=== PATIENT | female | born 1940 | race Caucasian/White ===

== ENCOUNTER → 2017-02-06 | Outpatient (CLI) | payer MEDICARE, OTHER ==
[~2017-02-06] MED LIST: ADVAIR; ALBU0.8322 IH; ALPR.25T PO; ALUPENT; AMOX-358 PO; AMOX1TAB11 PO; BARIUM SUSPENSION 2.1% (VANILLA SILQ) 450 ML PO ONE; BIOT1TAB2 PO; BONIVA; BUDE6HFA IH; CALC-654 PO; CALC600T; CLAR-19 PO; CLCX100C PO; CLD600T; CLIN-62 PO; CODIENE PO; DAYPRO; FLUT1DIS26 IH; FRSM20T PO; HYDR-3061 PO; HYDR1TAB PO; IOHEXOL 350 MG/ML 100 ML (OMNIPAQUE 350) VIAL IV ONE; IPRA3AMP19 IH; LEVO50TA PO; LEVO50TA6 PO; LEVO750T6 PO; MELO-198 PO; MELO15TA39 PO; MNTL10T PO; MUPI15CR TP; NS 100 ML (IVPB) BAG IV ONE; POTA10CA43 PO; PRD20T PO; ROBITUSSIN; ROBITUSSIN PO; RT-COMBINH IH; TIOT18CA IH; ZLP10T PO
[2017-02-06 11:56] LABS: BLOOD UREA NITROGEN 15 MG/DL (7-18); BUN/CREATININE RATIO 19; CREATININE SERUM 0.77 MG/DL (0.60-1.30); GFR ESTIMATED > 60
--- NOTE | 2017-02-06 15:10 | Diagnostic Imaging Report ---
PROCEDURE: CT abdomen and pelvis with contrast. TECHNIQUE: Multiple contiguous axial images were obtained through the abdomen and pelvis after administration of intravenous contrast. INDICATION: Abdominal wall drainage and fistula. No previous for comparison. Correlation limited to overlapped images obtained at the time of chest CT 08/08/2010. FINDINGS: Hepatic cyst stable, simple and benign. The lung bases nonacute. There is no adrenal mass. The spleen is negative. There is no hydronephrosis. There is no bowel obstruction. There is no ascites, abscess, hematoma or other fluid collection. There is no focal inflammatory process. No defect in the anterior abdominal wall and no abdominal wall or subcutaneous inflammatory process were found to suggest a localized site of reported draining wound. The osseous structures are nonacute. The uterus, adnexa and urinary bladder had an unremarkable appearance. There is no mesenteric or retroperitoneal lymphadenopathy. IMPRESSION: No obstructive features, inflammatory process, mass, fluid collection or acute findings identified. Dictated by: Dictated on workstation # [id number]
== END ==
LOC: RAD 11:14
PROVIDERS: ATTEND Surgery
DX: K63.2 Fistula of intestine (principal)
CPT/HCPCS: 36415; 74177; 82565; 84520

== ENCOUNTER → 2017-07-31 | Outpatient (CLI) | payer MEDICARE, OTHER ==
[~2017-07-31] MED LIST changes: +ACHD5005 PO; -BARIUM SUSPENSION 2.1% (VANILLA SILQ) 450 ML PO ONE; -IOHEXOL 350 MG/ML 100 ML (OMNIPAQUE 350) VIAL IV ONE; +NFBIOT1000 PO; -NS 100 ML (IVPB) BAG IV ONE
--- NOTE | 2017-07-31 11:49 | Diagnostic Imaging Report ---
Indication: Postop and difficulty breathing. Time of exam: 11:51 AM Correlation is made with prior study from 03/19/2012. Findings: Lungs do show some hyperinflation suggestive of COPD. No infiltrates are seen. No effusion or pneumothorax is identified. Impression: COPD. No acute features detected. Dictated by: Dictated on workstation # [id number]
== END ==
LOC: RAD 11:21
PROVIDERS: ATTEND Nurse Practitioner Family
DX: J44.9 Chronic obstructive pulmonary disease, unspecified (principal)
CPT/HCPCS: 71046

== ENCOUNTER 2017-08-01 16:27 | Inpatient (IN) | payer MEDICARE, OTHER ==
[~2017-08-01] VITALS: Ht 160 cm; Wt 76.2 kg
[2017-08-01] VITALS (7 sets, daily range): BP systolic 101–135; BP diastolic 54–77
[~2017-08-01 16:27] MED LIST changes: -NFBIOT1000 PO
[2017-08-01] MEDS ORDERED: PIPERACILLIN SODIUM/TAZOBACTAM 4.5 GM in NS (IVPB) 100 ML IV ONE (16:28)
[2017-08-01] MEDS ORDERED: ONDANSETRON 4 MG/2 ML (SDV) Z0FRAN IVP PRN (16:30)
[2017-08-01] MEDS ORDERED: fentaNYL INJECTION 100 MCG/2 ML AMP IVP PRN (16:30)
[2017-08-01] MEDS ORDERED: IBUPROFEN TABLET 200 MG TAB PO PRN (16:30)
[2017-08-01] MEDS ORDERED: ALPRAZolam 0.25 MG (XANAX) TAB PO PRN (16:30)
[2017-08-01] MEDS ORDERED: HYDROcodone/APAP 5 MG/325 MG (LORTAB) TAB PO PRN (16:30)
[2017-08-01] MEDS ORDERED: RT-ALBUTEROL SULF 2.5 MG/3 ML PRE-MIX VIAL INH NR (16:30)
[2017-08-01] MEDS ORDERED: RT-IPRATROPIUM (ATROVENT) 0.5MG/2.5ML AMP IH NR (16:30)
[2017-08-01] MEDS ORDERED: ACETAMINOPHEN 500 MG TAB (TYLENOL) PO PRN (16:30)
[2017-08-01] MEDS ORDERED: PIPERACILLIN SODIUM/TAZOBACTAM 4.5 GM in NS (IVPB) 100 ML IV NR ×2 (16:30→17:30)
[2017-08-01 17:38] LABS: ABG BASE EXCESS -3.7 MMOL/L (-2.5-2.5); ABG OXYGEN SATURATION 82 % (94-100); ABG PCO2 36 MMHG (35-45); ABG PH 7.37 (7.37-7.43); ABG PO2 44 MMHG (79-93); ABG TCO2 21.6 MMOL/L (21.0-31.0)
[2017-08-01 17:39] LABS: ALLENS TEST POSITIVE; INSPIRED O2 ROOM AIR; PATIENT TEMP 99.6; VENTILATOR NO
[2017-08-01] MEDS ORDERED: CATHETER FLUSH 10 ML SYR IV PRN (17:45)
[2017-08-01 17:51] LABS: BASOPHILS % (AUTO) 0 % (0-10); EOSINOPHILS % (AUTO) 0 % (0-10); HEMATOCRIT 39 % (35-52); HEMOGLOBIN 13.5 G/DL (11.5-16.0); LYMPHOCYTES # (AUTO) 0.6 X 10^3 (1.0-4.0); LYMPHOCYTES % (AUTO) 6 % (12-44); MEAN CORPUSCULAR HEMOGLOBIN 32 PG (25-34); MEAN CORPUSCULAR HGB CONC 35 G/DL (32-36); MEAN CORPUSCULAR VOLUME 93 FL (80-99); MEAN PLATELET VOLUME 10.5 FL (7.4-10.4); MONOCYTES # (AUTO) 0.8 X 10^3 (0.0-1.0); MONOCYTES % (AUTO) 7 % (0-12); NEUTROPHILS # (AUTO) 9.4 X 10^3 (1.8-7.8); NEUTROPHILS % (AUTO) 87 % (42-75); PLATELET COUNT 227 10^3/uL (130-400); RED CELL DISTRIBUTION WIDTH 12.8 % (10.0-14.5); WHITE BLOOD COUNT 10.9 10^3/uL (4.3-11.0)
--- NOTE | 2017-08-01 17:59 | Diagnostic Imaging Report ---
INDICATION: Shortness of breath. COMPARISON: Prior examination from 07/31/2017. EXAMINATION: Single view of the chest was obtained. FINDINGS: The heart size is normal. Lungs are clear. There is no pleural effusion or pneumothorax. Mediastinum is unremarkable. IMPRESSION: No acute cardiopulmonary abnormality. Dictated by: Dictated on workstation # [id number]
[2017-08-01 18:03] LABS: BAND NEUTROPHILS 1 %; BASOPHILS % (MANUAL) 0 %; EOSINOPHILS % (MANUAL) 0 %; LYMPHOCYTES % (MANUAL) 3 %; MONOCYTES % (MANUAL) 2 %; NEUTROPHILS % (MANUAL) 94 %; RBC MORPH NORMAL
[2017-08-01 18:09] LABS: BUN/CREATININE RATIO 29; CARBON DIOXIDE 22 MMOL/L (21-32); CHLORIDE 110 MMOL/L (98-107); CREATININE SERUM 0.79 MG/DL (0.60-1.30); GFR ESTIMATED > 60; GLUCOSE 130 MG/DL (70-105); POTASSIUM 4.5 MMOL/L (3.6-5.0); SODIUM 140 MMOL/L (135-145)
[2017-08-01 18:10] LABS: ALANINE AMINOTRANSFERASE 15 U/L (0-55); ALKALINE PHOSPHATASE 109 U/L (40-136); BILIRUBIN,TOTAL 0.3 MG/DL (0.1-1.0); CALCIUM 8.7 MG/DL (8.5-10.1); TOTAL PROTEIN 6.5 GM/DL (6.4-8.2)
[2017-08-01] MEDS: NS IV 1000 ML 1,000 ML IV SCH (18:12)
[2017-08-01] MEDS: methylPREDNISolone 40 MG/ML (Solu-MEDROL) VIAL IV SCH (18:12)
[2017-08-01] MEDS: ENOXAPARIN 40 MG/0.4 ML (LOVENOX) SYR SC SCH (18:12)
--- NOTE | 2017-08-01 21:06 | Consultation-Cardiology ---
HPI-Cardiology Cardiology Consultation: Date of Consultation 08/01/17 Time Seen by Provider: 20:45 Date of Admission Attending Physician Carolee Brown DO Admitting Physician Carolee Brown DO Consulting Physician CLAUDIA HUTTON MD, MA, FACP, FACC, FSCAI, CCDS HPI: Chief Complaint: Reason for consultation: Shortness of breath HPI: 77 yo woman admitted from Dr Brown's office with increasing shortness of breath and cough productive of yellowish sputum for several days. Denies cp or palp or syncope or leg swelling or symptoms of PND Review of Systems-Cardiology Review of Systems Constitutional: malaise, No weight loss, No weight gain Eyes: No vision change Ears/Nose/Throat: No ear pain, No mouth swelling, No recent hearing loss Respiratory: As described under HPI Gastrointestinal: No constipation, No diarrhea, No nausea Genitourinary: No dysuria, No hematuria, No urine frequency changes Musculoskeletal: No back pain, No joint pain Skin: No rash, No ulcerations Psychiatric/Neurological: No seizure, No focal weakness, No syncope Hematologic: No bleeding abnormalities AUB-Mcnffs-Jkdtad Hx Patient Social History Alcohol Use: Denies Use Recreational Drug Use: No Smoking Status: Former Smoker Former smoker/When Quit: Jan 27, 2007 Type Used: Cigarettes Recent Foreign Travel: No Recent Infectious Disease Expo: No Physical Abuse Screen: No Sexual Abuse: No Immunizations Up To Date Tetanus Booster (TDap): Less than 5yrs Date of Pneumonia Vaccine: Jan 27, 2007 Date of Influenza Vaccine: Mar 01, 2017 Past Medical History PMH As described under Assessment. Family Medical History Family History: Jhonathan's disease Cardiovascular disease 19 MOTHER Myocardial infarction 19 MOTHER Stroke or transient ischemic attack in mother Allergies and Home Medications Allergies Coded Allergies: morphine (Verified Allergy, Severe, 09/30/15) DIFFICULTY BREATHING levofloxacin (Verified Allergy, Unknown, joint pain, 03/08/17) Home Medications Hydrocodone Bit/Acetaminophen 1 Each Tablet, 1-2 TAB PO 4-6HR PRN for PAIN Prescribed by: ALEIDA CHRISTIE on 03/15/17 0912 Levothyroxine Sodium 50 Mcg Tablet, 50 MCG PO DAILY, (Reported) Meloxicam 15 Mg Tablet, 15 MG PO DAILY, (Reported) Patient Home Medication List Home Medication List Reviewed: Yes Physical Exam-Cardiology Physical Exam Vital Signs/I&O Vital Sign - Last 12Hours 08/01/17 08/01/17 08/01/17 17:15 17:30 18:00 Temp 99.6 Pulse 93 76 Resp 31 13 B/P (MAP) 135/77 (96) 127/62 (83) Pulse Ox 95 99 O2 Delivery Room Air Room Air Nasal Cannula O2 Flow Rate 2.00 Capillary Refill : Constitutional: AAO x 3, well-developed, well-nourished HEENT: PERRL, EOMI Neck: carotid pulses are 2 + bilaterally, with good upstrokes Respiratory: No accessory muscle use, other (Fair air entry; increased exp phase; scattered rhonchi and coarse crackles over large airways) Cardiovascular: regular rate-rhythm, S1 and S2, systolic murmur (Faint PO at card base) Gastrointestinal: No tender, soft, No guarding, No rebound, audible bowel sounds Extremities: No swelling, No cyanosis, No significant edema Neurologic/Psychiatric: oriented x 3, other (moves all limbs equally), grossly intact Skin: No rash on exposed areas, No ulcerations on exposed areas Data Review Labs Laboratory Tests 08/01/17 17:25: Blood Gas Puncture Site RIGHT RADIAL, Blood Gas Patient Temperature 99.6, Arterial Blood pH 7.37, Arterial Blood Partial Pressure CO2 36, Arterial Blood Partial Pressure O2 44L, Arterial Blood HCO3 21L, Arterial Blood Total CO2 21.6 , Arterial Blood Oxygen Saturation 82L, Arterial Blood Base Excess -3.7L, Petar Test POSITIVE, Blood Gas Ventilator Setting NO, Blood Gas Inspired Oxygen ROOM AIR 08/01/17 17:40: White Blood Count 10.9, Red Blood Count 4.20L, Hemoglobin 13.5, Hematocrit 39, Mean Corpuscular Volume 93, Mean Corpuscular Hemoglobin 32, Mean Corpuscular Hemoglobin Concent 35, Red Cell Distribution Width 12.8, Platelet Count 227, Mean Platelet Volume 10.5H, Neutrophils (%) (Auto) 87H, Lymphocytes (%) (Auto) 6L, Monocytes (%) (Auto) 7, Eosinophils (%) (Auto) 0, Basophils (%) (Auto) 0, Neutrophils # (Auto) 9.4H, Lymphocytes # (Auto) 0.6L, Monocytes # (Auto) 0.8, Eosinophils # (Auto) 0.0, Basophils # (Auto) 0.0, Neutrophils % (Manual) 94, Lymphocytes % (Manual) 3, Monocytes % (Manual) 2, Eosinophils % (Manual) 0, Basophils % (Manual) 0, Band Neutrophils 1, Blood Morphology Comment NORMAL, Sodium Level 140, Potassium Level 4.5, Chloride Level 110H, Carbon Dioxide Level 22, Anion Gap 8, Blood Urea Nitrogen 23H, Creatinine 0.79, Estimat Glomerular Filtration Rate > 60, BUN/Creatinine Ratio 29, Glucose Level 130H, Calcium Level 8.7, Total Bilirubin 0.3, Aspartate Amino Transf (AST/SGOT) 20, Alanine Aminotransferase (ALT/SGPT) 15, Alkaline Phosphatase 109, B-Type Natriuretic Peptide 110.3H, Total Protein 6.5, Albumin 4.0 08/01/17 17:45: Lactic Acid Level 1.05 Microbiology 08/01/17 Influenza Types A,B Antigen (DAVID) - Final, Complete Laboratory Tests 08/01/17 17:40 A/P-Cardiology Assessment/Admission Diagnosis Acute bronchitis Hypothyroidism treated with thyroid replacement Discussion and Recomendations * Cardiac status appears clinically stable * Keep tele * ECG in am * I discussed her case with Dr Brown on the phone Clinical Quality Measures DVT/VTE Risk/Contraindication: Risk Factor Score Per Nursin RFS Level Per Nursing on Admit: 4+=Very High CLAUDIA HUTTON MD FACP [facility] Aug 01, 2017 21:06
[2017-08-01] MEDS: RT-ALBUTEROL/IPRATROPIUM 3 ML (DUONEB) VIAL INH SCH ×2 (21:48→21:56)
[2017-08-01] MEDS: RT-BUDESONIDE NEBS 0.5 MG/2ML (PULMICORT) AMP INH SCH ×2 (21:48→21:56)
[2017-08-02] VITALS (15 sets, daily range): BP systolic 99–128; BP diastolic 49–71
[2017-08-02] MEDS ORDERED: RT-ALBUTEROL/IPRATROPIUM 3 ML (DUONEB) VIAL INH PRN (00:30)
[2017-08-02] MEDS: methylPREDNISolone 40 MG/ML (Solu-MEDROL) VIAL IV SCH ×4 (00:35→20:58)
[2017-08-02] MEDS: PIPERACILLIN SODIUM/TAZOBACTAM 4.5 GM in NS (IVPB) 100 ML IV SCH ×3 (00:35→15:38)
[2017-08-02] MEDS: RT-ALBUTEROL/IPRATROPIUM 3 ML (DUONEB) VIAL INH SCH ×6 (02:09→22:45)
[2017-08-02] MEDS: NS IV 1000 ML 1,000 ML IV SCH (03:36)
[2017-08-02 03:37] LABS: BASOPHILS % (AUTO) 0 % (0-10); EOSINOPHILS % (AUTO) 0 % (0-10); HEMATOCRIT 37 % (35-52); HEMOGLOBIN 12.4 G/DL (11.5-16.0); LYMPHOCYTES # (AUTO) 0.4 X 10^3 (1.0-4.0); LYMPHOCYTES % (AUTO) 5 % (12-44); MEAN CORPUSCULAR HEMOGLOBIN 32 PG (25-34); MEAN CORPUSCULAR HGB CONC 34 G/DL (32-36); MEAN CORPUSCULAR VOLUME 94 FL (80-99); MEAN PLATELET VOLUME 10.6 FL (7.4-10.4); MONOCYTES # (AUTO) 0.1 X 10^3 (0.0-1.0); MONOCYTES % (AUTO) 1 % (0-12); NEUTROPHILS # (AUTO) 7.4 X 10^3 (1.8-7.8); NEUTROPHILS % (AUTO) 94 % (42-75); PLATELET COUNT 220 10^3/uL (130-400); RED BLOOD COUNT 3.91 10^6/uL (4.35-5.85); RED CELL DISTRIBUTION WIDTH 12.9 % (10.0-14.5); WHITE BLOOD COUNT 7.9 10^3/uL (4.3-11.0)
[2017-08-02 04:12] LABS: ALANINE AMINOTRANSFERASE 12 U/L (0-55); ALBUMIN 3.7 GM/DL (3.2-4.5); ALKALINE PHOSPHATASE 114 U/L (40-136); BILIRUBIN,TOTAL 0.3 MG/DL (0.1-1.0); BUN/CREATININE RATIO 36; CALCIUM 8.2 MG/DL (8.5-10.1); CARBON DIOXIDE 19 MMOL/L (21-32); CHLORIDE 115 MMOL/L (98-107); CREATININE SERUM 0.87 MG/DL (0.60-1.30); GFR ESTIMATED > 60; GLUCOSE 178 MG/DL (70-105); MAGNESIUM 2.1 MG/DL (1.8-2.4); POTASSIUM 3.9 MMOL/L (3.6-5.0); SODIUM 143 MMOL/L (135-145); TOTAL PROTEIN 5.8 GM/DL (6.4-8.2)
--- NOTE | 2017-08-02 05:41 | Pulmonary Consultation ---
History of Present Illness History of Present Illness Date of Consultation 08/02/17 05:35 Time Seen by Provider: 05:35 Date of Admission History of Present Illness 77yo presented as direct admit from Dr. Brown's office secondary to worsening SOB and productive cough of yellow sputum x 3-4 days. Denies CP, palpitations. PT was started on erythromycin and prednisone taper on Saturday however she continued to have progressive SOB, and coughing. I am consulted for pulmonary management. Allergies and Home Medications Allergies Coded Allergies: morphine (Verified Allergy, Severe, 09/30/15) DIFFICULTY BREATHING levofloxacin (Verified Allergy, Unknown, joint pain, 03/08/17) Home Medications Hydrocodone Bit/Acetaminophen 1 Each Tablet, 1-2 TAB PO 4-6HR PRN for PAIN Prescribed by: ALEIDA CHRISTIE on 03/15/17 0912 Levothyroxine Sodium 50 Mcg Tablet, 50 MCG PO DAILY, (Reported) Meloxicam 15 Mg Tablet, 15 MG PO DAILY, (Reported) Past Tvnwlrd-Wltnby-Sdkits Hx Patient Social History Alcohol Use: Denies Use Recreational Drug Use: No Smoking Status: Former Smoker Type Used: Cigarettes Former Smoker, Quit: Mar 08, 2006 Recent Foreign Travel: No Contact w/Someone Who Travel: No Recent Infectious Disease Expo: No Recent Hopitalizations: No Immunizations Up To Date Tetanus Booster (TDap): Less than 5yrs PED Vaccines UTD: Yes Date of Pneumonia Vaccine: Jan 27, 2007 Date of Influenza Vaccine: Mar 01, 2017 Seasonal Allergies Seasonal Allergies: No Surgeries History of Surgeries: Yes Surgeries: Appendectomy, Orthopedic Respiratory History of Respiratory Disorde: Yes Respiratory Disorders: Asthma, Pneumonia, COPD Currently Using CPAP: No Currently Using BIPAP: No Cardiovascular History of Cardiac Disorders: No Neurological History of Neurological Disord: No Reproductive System Hx Reproductive Disorders: No Genitourinary History of Genitourinary Disor: No Gastrointestinal History of Gastrointestinal Di: No Gastrointestinal Disorders: Diverticulosis Musculoskeletal History of Musculoskeletal Dis: No Musculoskeletal Disorders: Osteoporosis Endocrine History of Endocrine Disorders: Yes Endocrine Disorders: Hypothyroidsim HEENT History of HEENT Disorders: No Loss of Vision: Denies Hearing Impairment: Denies Cancer History of Cancer: No Psychosocial History of Psychiatric Problem: No Integumentary History of Skin or Integumenta: No Blood Transfusions History of Blood Disorders: No Adverse Reaction to a Blood Tr: Yes Family Medical History Significant Family History: Hypertension Family Medial History: Jhonathan's disease Cardiovascular disease 19 MOTHER Myocardial infarction 19 MOTHER Stroke or transient ischemic attack in mother Review of Systems Time Seen by Provider: 05:49 Constitutional: Chills, Weakness, Malaise, No: Fever, Sweats, Other Eyes: No: Pain, Vision change, Conjunctivae inflammation, Eyelid inflammation, Other, Redness ENT: Nose congestion Respiratory: Cough, Shortness of breath, Wheezing, Sputum Cardiovascular: Paroxysmal Noc. Dyspnea, No: Chest Pain, Palpitations, Orthopnea, Edema, Lt Headedness, Other Gastrointestinal: No: Nausea, Vomiting, Abdominal Pain, Diarrhea, Constipation , Melena, Hematochezia, Other Exam Exam Vital Signs Date Time Temp Pulse Resp B/P (MAP) Pulse Ox O2 Delivery O2 Flow Rate FiO2 08/02/17 05:00 57 14 102/55 (71) 98 Nasal Cannula 2.00 08/02/17 04:00 97.0 08/02/17 04:00 96 Nasal Cannula 2.00 08/02/17 04:00 80 23 117/66 (83) 96 Nasal Cannula 2.00 08/02/17 03:00 77 14 105/49 (67) 97 Nasal Cannula 2.00 08/02/17 02:09 96 Room Air 08/02/17 02:00 73 10 110/59 (76) 94 Nasal Cannula 2.00 08/02/17 01:00 70 14 101/51 (68) 97 Nasal Cannula 2.00 08/02/17 01:00 70 08/02/17 00:37 97.1 08/02/17 00:00 96 Nasal Cannula 2.00 08/02/17 00:00 71 16 99/56 (70) 96 Nasal Cannula 2.00 08/01/17 23:00 76 15 101/54 (70) 96 Nasal Cannula 2.00 08/01/17 22:03 Nasal Cannula 2.00 08/01/17 22:00 64 36 121/62 (81) 100 Nasal Cannula 2.00 08/01/17 21:56 100 Nasal Cannula 2.00 08/01/17 21:56 58 100 08/01/17 21:00 63 132/67 (88) 97 Nasal Cannula 2.00 08/01/17 20:00 74 17 126/60 (82) 97 Nasal Cannula 2.00 08/01/17 20:00 96 Nasal Cannula 2.00 08/01/17 20:00 99.0 08/01/17 19:00 70 21 118/74 (89) 98 Nasal Cannula 2.00 08/01/17 19:00 70 08/01/17 18:00 76 13 127/62 (83) 99 Nasal Cannula 2.00 08/01/17 17:30 Room Air 08/01/17 17:15 99.6 93 31 135/77 (96) 95 Room Air I & O 08/02/17 07:00 Intake Total 1400 ml Output Total 200 ml Balance 1200 ml General Appearance: Anxious, Mild Distress HEENT: PERRL/EOMI, Normal ENT Inspection, Pharynx Normal Neck: Full Range of Motion, Normal Inspection, Non Tender, Supple Respiratory: Accessory Muscle Use, Decreased Breath Sounds, Rhonci Cardiovascular: No Edema, No Gallop, No JVD, No Murmur, Bradycardia Gastrointestinal: normal bowel sounds, non tender, soft, no organomegaly Extremity: Normal Capillary Refill, Normal Inspection, Non Tender Neurologic/Psychiatric: Alert, Oriented x3 Skin: Normal Color, Warm/Dry Lymphatic: No Adenopathy Results Lab Laboratory Tests 08/01/17 17:40 08/02/17 03:01 Assessment/Plan Assessment/Plan AsthmaAE r/o pneumonia -SVNS Q 4, pulmicort BID -Solumedrol decrease to 40 IV Q 6 --Continue Zosyn -Await jenkins cultures. will transfer to 4th floor with tele. TAVO OLMOS DO Aug 02, 2017 05:40
[2017-08-02] MEDS ORDERED: NS IV 1000 ML 1,000 ML IV SCH (05:44)
[2017-08-02] MEDS ORDERED: POTASSIUM CL 10MEQ/50ML IVPB 50 ML IV SCH (06:00)
[2017-08-02] MEDS ORDERED: MAGNESIUM 1 GM/100 ML IVPB 100 ML IV SCH (06:00)
[2017-08-02] MEDS: KCL 20 MEQ TAB (K-DUR) PO SCH (06:01)
[2017-08-02] MEDS: RT-BUDESONIDE NEBS 0.5 MG/2ML (PULMICORT) AMP INH SCH ×2 (07:01→19:22)
--- NOTE | 2017-08-02 07:57 | Diagnostic Imaging Report ---
INDICATION: Respiratory insufficiency. TECHNIQUE: Single frontal view of the chest. COMPARISON: 08/01/2017 FINDINGS: Lung volumes are normal. Minimally increased opacities in the right lung base likely represent atelectasis. The cardiomediastinal silhouette is normal in size and contour. No pleural effusion or pneumothorax is seen. No acute osseous abnormality is seen, although there are advanced degenerative changes in the shoulders bilaterally. IMPRESSION: 1. Minimally increased opacities in the right lung base, likely atelectasis. Dictated by: Dictated on workstation # [id number]
[2017-08-02] MEDS: LORATADINE (CLARITIN) 10 MG TAB PO SCH (08:05)
[2017-08-02] MEDS ORDERED: NFBIOT1000 PO ×2 (09:20)
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
--- NOTE | 2017-08-02 13:33 | Progress Note-Cardiology ---
Cardiology SOAP Progress Note Subjective: Cough and shortness of breath improving but not resolved No cp or palp or syncope or leg swelling Objective: I&O/Vital Signs Vital Sign - Last 12Hours 08/02/17 08/02/17 08/02/17 08/02/17 02:00 02:09 03:00 04:00 Pulse 73 77 80 Resp 10 14 23 B/P (MAP) 110/59 (76) 105/49 (67) 117/66 (83) Pulse Ox 94 96 97 96 O2 Delivery Nasal Cannula Room Air Nasal Cannula Nasal Cannula O2 Flow Rate 2.00 2.00 2.00 08/02/17 08/02/17 08/02/17 08/02/17 04:00 04:00 05:00 06:00 Temp 97.0 Pulse 57 56 Resp 14 36 B/P (MAP) 102/55 (71) 120/71 (87) Pulse Ox 96 98 98 O2 Delivery Nasal Cannula Nasal Cannula Nasal Cannula O2 Flow Rate 2.00 2.00 2.00 08/02/17 08/02/17 08/02/17 08/02/17 07:00 07:00 07:02 07:08 Pulse 65 62 Resp 19 B/P (MAP) 111/61 (78) Pulse Ox 92 99 100 O2 Delivery Nasal Cannula Nasal Cannula Nasal Cannula O2 Flow Rate 2.00 1.00 1.00 08/02/17 08/02/17 08/02/17 08/02/17 08:06 08:13 09:00 10:03 Temp 97.8 Pulse 75 58 Resp 22 19 B/P (MAP) 125/67 (86) 114/60 (78) Pulse Ox 98 97 97 98 O2 Delivery Room Air Room Air Nasal Cannula Room Air O2 Flow Rate 2.00 08/02/17 08/02/17 08/02/17 10:23 10:35 10:40 Temp 98.9 Pulse 74 82 Resp 18 16 B/P (MAP) 128/64 (85) 112/56 (74) Pulse Ox 96 97 95 O2 Delivery Room Air Room Air Intake and Output 08/02/17 00:00 Intake Total 300 ml Output Total 200 ml Balance 100 ml Weight (Pounds): 163 Weight (Ounces): 2.0 Weight (Calculated Kilograms): 73.460748 Constitutional: AAO x 3, well-developed, well-nourished Respiratory: No accessory muscle use, other (Fair air entry; increased exp phase; scattered rhonchi and coarse crackles over large airways) Cardiovascular: regular rate-rhythm, S1 and S2, systolic murmur (Faint PO at card base) Gastrointestional: No tender, soft, No guarding, No rebound, audible bowel sounds Extremities: No swelling, No cyanosis, No significant edema Neurologic/Psychiatric: oriented x 3, other (moves all limbs equally), grossly intact Skin: No rash on exposed areas, No ulcerations on exposed areas Results/Procedures: Labs Laboratory Tests 08/01/17 17:25: Blood Gas Puncture Site RIGHT RADIAL, Blood Gas Patient Temperature 99.6, Arterial Blood pH 7.37, Arterial Blood Partial Pressure CO2 36, Arterial Blood Partial Pressure O2 44L, Arterial Blood HCO3 21L, Arterial Blood Total CO2 21.6 , Arterial Blood Oxygen Saturation 82L, Arterial Blood Base Excess -3.7L, Petar Test POSITIVE, Blood Gas Ventilator Setting NO, Blood Gas Inspired Oxygen ROOM AIR 08/01/17 17:40: White Blood Count 10.9, Red Blood Count 4.20L, Hemoglobin 13.5, Hematocrit 39, Mean Corpuscular Volume 93, Mean Corpuscular Hemoglobin 32, Mean Corpuscular Hemoglobin Concent 35, Red Cell Distribution Width 12.8, Platelet Count 227, Mean Platelet Volume 10.5H, Neutrophils (%) (Auto) 87H, Lymphocytes (%) (Auto) 6L, Monocytes (%) (Auto) 7, Eosinophils (%) (Auto) 0, Basophils (%) (Auto) 0, Neutrophils # (Auto) 9.4H, Lymphocytes # (Auto) 0.6L, Monocytes # (Auto) 0.8, Eosinophils # (Auto) 0.0, Basophils # (Auto) 0.0, Neutrophils % (Manual) 94, Lymphocytes % (Manual) 3, Monocytes % (Manual) 2, Eosinophils % (Manual) 0, Basophils % (Manual) 0, Band Neutrophils 1, Blood Morphology Comment NORMAL, Sodium Level 140, Potassium Level 4.5, Chloride Level 110H, Carbon Dioxide Level 22, Anion Gap 8, Blood Urea Nitrogen 23H, Creatinine 0.79, Estimat Glomerular Filtration Rate > 60, BUN/Creatinine Ratio 29, Glucose Level 130H, Calcium Level 8.7, Total Bilirubin 0.3, Aspartate Amino Transf (AST/SGOT) 20, Alanine Aminotransferase (ALT/SGPT) 15, Alkaline Phosphatase 109, B-Type Natriuretic Peptide 110.3H, Total Protein 6.5, Albumin 4.0 08/01/17 17:45: Lactic Acid Level 1.05 08/02/17 03:01: White Blood Count 7.9, Red Blood Count 3.91L, Hemoglobin 12.4, Hematocrit 37, Mean Corpuscular Volume 94, Mean Corpuscular Hemoglobin 32, Mean Corpuscular Hemoglobin Concent 34, Red Cell Distribution Width 12.9, Platelet Count 220, Mean Platelet Volume 10.6H, Neutrophils (%) (Auto) 94H, Lymphocytes (%) (Auto) 5L, Monocytes (%) (Auto) 1, Eosinophils (%) (Auto) 0, Basophils (%) (Auto) 0, Neutrophils # (Auto) 7.4, Lymphocytes # (Auto) 0.4L, Monocytes # (Auto) 0.1, Eosinophils # (Auto) 0.0, Basophils # (Auto) 0.0, Sodium Level 143, Potassium Level 3.9, Chloride Level 115H, Carbon Dioxide Level 19L, Anion Gap 9, Blood Urea Nitrogen 31H, Creatinine 0.87, Estimat Glomerular Filtration Rate > 60, BUN /Creatinine Ratio 36, Glucose Level 178H, Calcium Level 8.2L, Total Bilirubin 0.3, Aspartate Amino Transf (AST/SGOT) 16, Alanine Aminotransferase (ALT/SGPT) 12, Alkaline Phosphatase 114, Total Protein 5.8L, Albumin 3.7, Magnesium Level 2.1 Microbiology 08/01/17 Influenza Types A,B Antigen (DAVID) - Final, Complete A/P: Assessment: Acute bronchitis Hypothyroidism treated with thyroid replacement ECG: subtle ST/T abn (nonspecific) and some prolongation of QTc Plan: * Cardiac status appears clinically stable * ECG w/o evidence of ischemia or infarction * Repeat ECG in CLAUDIA Haines MD [facility] Aug 02, 2017 13:33
[2017-08-02] MEDS: ENOXAPARIN 40 MG/0.4 ML (LOVENOX) SYR SC SCH (15:38)
[2017-08-02] MEDS: MONTELUKAST 10 MG (SINGULAIR) TAB PO SCH (20:52)
[2017-08-03] VITALS: BP 120/59
[2017-08-03] MEDS: PIPERACILLIN SODIUM/TAZOBACTAM 4.5 GM in NS (IVPB) 100 ML IV SCH ×3 (00:39→16:03)
[2017-08-03] MEDS: methylPREDNISolone 40 MG/ML (Solu-MEDROL) VIAL IV SCH ×4 (02:02→17:03)
[2017-08-03] MEDS: RT-ALBUTEROL/IPRATROPIUM 3 ML (DUONEB) VIAL INH SCH ×6 (03:17→22:08)
[2017-08-03 04:00] VITALS: BP 101/49
[2017-08-03 04:30] VITALS: BP 110/56
[2017-08-03] MEDS: KCL 20 MEQ TAB (K-DUR) PO SCH (06:13)
[2017-08-03] MEDS: LEVOTHYROXINE 50 MCG (LEVOTHROID) TAB PO SCH (06:27)
[2017-08-03] MEDS: RT-BUDESONIDE NEBS 0.5 MG/2ML (PULMICORT) AMP INH SCH ×2 (06:36→19:07)
[2017-08-03 07:02] LABS: BASOPHILS % (AUTO) 0 % (0-10); EOSINOPHILS % (AUTO) 0 % (0-10); HEMATOCRIT 35 % (35-52); HEMOGLOBIN 11.6 G/DL (11.5-16.0); LYMPHOCYTES # (AUTO) 0.7 X 10^3 (1.0-4.0); LYMPHOCYTES % (AUTO) 7 % (12-44); MEAN CORPUSCULAR HEMOGLOBIN 32 PG (25-34); MEAN CORPUSCULAR HGB CONC 33 G/DL (32-36); MEAN CORPUSCULAR VOLUME 95 FL (80-99); MEAN PLATELET VOLUME 10.5 FL (7.4-10.4); MONOCYTES # (AUTO) 0.4 X 10^3 (0.0-1.0); MONOCYTES % (AUTO) 4 % (0-12); NEUTROPHILS # (AUTO) 9.3 X 10^3 (1.8-7.8); NEUTROPHILS % (AUTO) 90 % (42-75); PLATELET COUNT 222 10^3/uL (130-400); RED BLOOD COUNT 3.66 10^6/uL (4.35-5.85); RED CELL DISTRIBUTION WIDTH 13.4 % (10.0-14.5); WHITE BLOOD COUNT 10.3 10^3/uL (4.3-11.0)
[2017-08-03 07:22] LABS: BUN/CREATININE RATIO 34; CALCIUM 8.1 MG/DL (8.5-10.1); CARBON DIOXIDE 21 MMOL/L (21-32); CHLORIDE 116 MMOL/L (98-107); CREATININE SERUM 0.76 MG/DL (0.60-1.30); GFR ESTIMATED > 60; GLUCOSE 143 MG/DL (70-105); MAGNESIUM 2.2 MG/DL (1.8-2.4); PHOSPHORUS 3.2 MG/DL (2.3-4.7); SODIUM 141 MMOL/L (135-145)
[2017-08-03] MEDS: LORATADINE (CLARITIN) 10 MG TAB PO SCH (08:11)
[2017-08-03] MEDS: MELOXICAM 7.5 MG (MOBIC) TABLET PO SCH (08:11)
[2017-08-03 08:30] VITALS: BP 117/56
[2017-08-03] MEDS ORDERED: NON-FORMULARY MEDICATION 1 EA EA (Biotin 1,000 MCG) PO SCH (09:00)
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
--- NOTE | 2017-08-03 13:58 | Progress Note-Cardiology ---
Cardiology SOAP Progress Note Subjective: Cough and shortness of breath have improved, but have not resolved No cp or palp or syncope or leg swelling Objective: I&O/Vital Signs Vital Sign - Last 12Hours 08/03/17 08/03/17 08/03/17 08/03/17 03:17 04:00 04:00 04:30 Temp 97.9 Pulse 69 Resp 18 B/P (MAP) 101/49 (66) 110/56 (74) Pulse Ox 92 93 O2 Delivery Room Air Room Air Room Air 08/03/17 08/03/17 08/03/17 08/03/17 06:37 06:42 07:00 08:00 Pulse 70 Pulse Ox 94 98 O2 Delivery Room Air Room Air Room Air 08/03/17 08/03/17 08:30 10:26 Temp 97.0 Pulse 72 Resp 20 B/P (MAP) 117/56 (76) Pulse Ox 96 92 O2 Delivery Room Air Room Air Intake and Output 08/03/17 00:00 Intake Total 920 ml Output Total 200 ml Balance 720 ml Weight (Pounds): 164 Weight (Ounces): 5.0 Weight (Calculated Kilograms): 74.090532 Constitutional: AAO x 3, well-developed, well-nourished Respiratory: No accessory muscle use, other (Fair air entry; increased exp phase; scattered rhonchi and coarse crackles over large airways) Cardiovascular: regular rate-rhythm, S1 and S2, systolic murmur (Faint PO at card base) Gastrointestional: No tender, soft, No guarding, No rebound, audible bowel sounds Extremities: No swelling, No cyanosis, No significant edema Neurologic/Psychiatric: oriented x 3, other (moves all limbs equally), grossly intact Skin: No rash on exposed areas, No ulcerations on exposed areas Results/Procedures: Labs Laboratory Tests 08/03/17 06:39: White Blood Count 10.3, Red Blood Count 3.66L, Hemoglobin 11.6, Hematocrit 35, Mean Corpuscular Volume 95, Mean Corpuscular Hemoglobin 32, Mean Corpuscular Hemoglobin Concent 33, Red Cell Distribution Width 13.4, Platelet Count 222, Mean Platelet Volume 10.5H, Neutrophils (%) (Auto) 90H, Lymphocytes (%) (Auto) 7L, Monocytes (%) (Auto) 4, Eosinophils (%) (Auto) 0, Basophils (%) (Auto) 0, Neutrophils # (Auto) 9.3H, Lymphocytes # (Auto) 0.7L, Monocytes # (Auto) 0.4, Eosinophils # (Auto) 0.0, Basophils # (Auto) 0.0, Sodium Level 141, Potassium Level 4.0, Chloride Level 116H, Carbon Dioxide Level 21, Anion Gap 4L, Blood Urea Nitrogen 26H, Creatinine 0.76, Estimat Glomerular Filtration Rate > 60, BUN /Creatinine Ratio 34, Glucose Level 143H, Calcium Level 8.1L, Phosphorus Level 3.2, Magnesium Level 2.2 Microbiology 08/01/17 Blood Culture - Preliminary, Resulted No growth 08/01/17 Influenza Types A,B Antigen (DAVID) - Final, Complete Laboratory Tests 08/01/17 17:40 08/02/17 03:01 08/03/17 06:39 A/P: Assessment: Acute bronchitis Hypothyroidism treated with thyroid replacement ECG: NSR and subtle ST/T abn (nonspecific), slow R wave progression, and some prolongation of QTc on 08/02/17; unchanged on 07/06/17 except that QTc is normal Plan: * Cardiac status appears clinically stable * I had a discussion with her * We will sign off. Please recall, if needed CLAUDIA HUTTON MD FACP [facility] Aug 03, 2017 13:58
[2017-08-03 15:26] VITALS: BP 131/60
[2017-08-03] MEDS: ENOXAPARIN 40 MG/0.4 ML (LOVENOX) SYR SC SCH (16:03)
[2017-08-03] MEDS: MONTELUKAST 10 MG (SINGULAIR) TAB PO SCH (21:03)
[2017-08-03 23:44] VITALS: BP 127/59
[2017-08-04] MEDS: methylPREDNISolone 40 MG/ML (Solu-MEDROL) VIAL IV SCH ×4 (00:56→17:15)
[2017-08-04] MEDS: PIPERACILLIN SODIUM/TAZOBACTAM 4.5 GM in NS (IVPB) 100 ML IV SCH ×3 (00:56→15:49)
[2017-08-04] MEDS: RT-ALBUTEROL/IPRATROPIUM 3 ML (DUONEB) VIAL INH SCH ×6 (02:35→22:21)
[2017-08-04 06:14] LABS: BASOPHILS % (AUTO) 0 % (0-10); EOSINOPHILS % (AUTO) 0 % (0-10); HEMATOCRIT 35 % (35-52); HEMOGLOBIN 11.6 G/DL (11.5-16.0); LYMPHOCYTES # (AUTO) 0.6 X 10^3 (1.0-4.0); LYMPHOCYTES % (AUTO) 6 % (12-44); MEAN CORPUSCULAR HEMOGLOBIN 32 PG (25-34); MEAN CORPUSCULAR HGB CONC 33 G/DL (32-36); MEAN CORPUSCULAR VOLUME 95 FL (80-99); MEAN PLATELET VOLUME 10.4 FL (7.4-10.4); MONOCYTES # (AUTO) 0.4 X 10^3 (0.0-1.0); MONOCYTES % (AUTO) 5 % (0-12); NEUTROPHILS # (AUTO) 8.2 X 10^3 (1.8-7.8); NEUTROPHILS % (AUTO) 89 % (42-75); PLATELET COUNT 225 10^3/uL (130-400); RED BLOOD COUNT 3.66 10^6/uL (4.35-5.85); RED CELL DISTRIBUTION WIDTH 13.2 % (10.0-14.5); WHITE BLOOD COUNT 9.2 10^3/uL (4.3-11.0)
[2017-08-04] MEDS: LEVOTHYROXINE 50 MCG (LEVOTHROID) TAB PO SCH (06:40)
[2017-08-04] MEDS: KCL 20 MEQ TAB (K-DUR) PO SCH (06:41)
[2017-08-04 06:49] LABS: BUN/CREATININE RATIO 42; CALCIUM 8.1 MG/DL (8.5-10.1); CARBON DIOXIDE 19 MMOL/L (21-32); CHLORIDE 114 MMOL/L (98-107); CREATININE SERUM 0.74 MG/DL (0.60-1.30); GFR ESTIMATED > 60; GLUCOSE 140 MG/DL (70-105); MAGNESIUM 2.2 MG/DL (1.8-2.4); PHOSPHORUS 2.9 MG/DL (2.3-4.7); POTASSIUM 3.9 MMOL/L (3.6-5.0); SODIUM 142 MMOL/L (135-145)
[2017-08-04] MEDS: RT-BUDESONIDE NEBS 0.5 MG/2ML (PULMICORT) AMP INH SCH ×2 (06:56→22:22)
[2017-08-04 07:40] VITALS: BP 137/63
[2017-08-04] MEDS: LORATADINE (CLARITIN) 10 MG TAB PO SCH (08:43)
[2017-08-04] MEDS: MELOXICAM 7.5 MG (MOBIC) TABLET PO SCH (08:43)
[2017-08-04 10:39] VITALS: BP 137/63
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
[2017-08-04 12:13] VITALS: BP 135/64
[2017-08-04] MEDS: ENOXAPARIN 40 MG/0.4 ML (LOVENOX) SYR SC SCH (15:50)
[2017-08-04 16:30] VITALS: BP 116/57
[2017-08-04] MEDS: MONTELUKAST 10 MG (SINGULAIR) TAB PO SCH (20:57)
[2017-08-05 00:17] VITALS: BP 135/64
[2017-08-05] MEDS: methylPREDNISolone 40 MG/ML (Solu-MEDROL) VIAL IV SCH ×2 (00:30→06:25)
[2017-08-05] MEDS: PIPERACILLIN SODIUM/TAZOBACTAM 4.5 GM in NS (IVPB) 100 ML IV SCH ×2 (00:30→10:55)
[2017-08-05] MEDS: RT-ALBUTEROL/IPRATROPIUM 3 ML (DUONEB) VIAL INH SCH ×3 (02:38→11:50)
[2017-08-05 03:35] LABS: BASOPHILS % (AUTO) 0 % (0-10); EOSINOPHILS % (AUTO) 0 % (0-10); HEMATOCRIT 35 % (35-52); HEMOGLOBIN 11.9 G/DL (11.5-16.0); LYMPHOCYTES # (AUTO) 0.7 X 10^3 (1.0-4.0); LYMPHOCYTES % (AUTO) 9 % (12-44); MEAN CORPUSCULAR HEMOGLOBIN 32 PG (25-34); MEAN CORPUSCULAR HGB CONC 34 G/DL (32-36); MEAN CORPUSCULAR VOLUME 94 FL (80-99); MEAN PLATELET VOLUME 10.4 FL (7.4-10.4); MONOCYTES # (AUTO) 0.4 X 10^3 (0.0-1.0); MONOCYTES % (AUTO) 5 % (0-12); NEUTROPHILS # (AUTO) 6.4 X 10^3 (1.8-7.8); NEUTROPHILS % (AUTO) 86 % (42-75); PLATELET COUNT 251 10^3/uL (130-400); RED BLOOD COUNT 3.76 10^6/uL (4.35-5.85); RED CELL DISTRIBUTION WIDTH 13.2 % (10.0-14.5); WHITE BLOOD COUNT 7.5 10^3/uL (4.3-11.0)
[2017-08-05 03:54] LABS: BUN/CREATININE RATIO 44; CALCIUM 8.2 MG/DL (8.5-10.1); CARBON DIOXIDE 21 MMOL/L (21-32); CHLORIDE 114 MMOL/L (98-107); CREATININE SERUM 0.73 MG/DL (0.60-1.30); GFR ESTIMATED > 60; GLUCOSE 136 MG/DL (70-105); MAGNESIUM 2.3 MG/DL (1.8-2.4); PHOSPHORUS 3.2 MG/DL (2.3-4.7); SODIUM 142 MMOL/L (135-145)
[2017-08-05] MEDS: LEVOTHYROXINE 50 MCG (LEVOTHROID) TAB PO SCH (06:25)
[2017-08-05] MEDS: KCL 20 MEQ TAB (K-DUR) PO SCH (06:25)
[2017-08-05] MEDS: RT-BUDESONIDE NEBS 0.5 MG/2ML (PULMICORT) AMP INH SCH (06:48)
--- NOTE | 2017-08-05 07:12 | Pulmonary Progress Note ---
Subjective Time Seen by Provider: 07:41 Subjective/Events-last exam PT wants to go home. Exam Exam Vital Signs Date Time Temp Pulse Resp B/P (MAP) Pulse Ox O2 Delivery O2 Flow Rate FiO2 08/05/17 06:51 98 08/05/17 06:46 93 Room Air 08/05/17 02:38 93 Room Air 08/05/17 00:17 99.1 75 20 135/64 (87) 98 Room Air 08/04/17 22:22 93 Room Air 08/04/17 22:21 93 Room Air 08/04/17 20:00 Room Air 08/04/17 16:30 98.6 70 18 116/57 (76) 94 Room Air 08/04/17 13:57 95 Room Air 08/04/17 12:13 99.1 75 20 135/64 (87) 98 Room Air 08/04/17 10:39 75 98 21 08/04/17 10:35 98 Room Air 08/04/17 08:14 Room Air 08/04/17 07:40 99.1 75 18 137/63 (87) 97 Room Air I & O 08/05/17 07:00 Intake Total 610 ml Output Total 750 ml Balance -140 ml General Appearance: No Apparent Distress, WD/WN HEENT: PERRL/EOMI, Normal ENT Inspection, Pharynx Normal Neck: Full Range of Motion, Normal Inspection, Non Tender, Supple, Carotid Bruit Respiratory: Chest Non Tender, Accessory Muscle Use, Decreased Breath Sounds, Wheezing Cardiovascular: Regular Rate, Rhythm, No Edema, No Gallop, No JVD, No Murmur, Normal Peripheral Pulses Gastrointestinal: normal bowel sounds, non tender, soft, no organomegaly Extremity: Normal Capillary Refill, Normal Inspection, Normal Range of Motion, Non Tender, No Calf Tenderness, No Pedal Edema Neurologic/Psychiatric: Alert, Oriented x3, No Motor/Sensory Deficits, Normal Mood/Affect Skin: Normal Color, Warm/Dry Lymphatic: No Adenopathy Results Lab Laboratory Tests 08/04/17 05:30 08/05/17 03:00 Assessment/Plan Assessment/Plan AsthmaAE r/o pneumonia -SVNS Q 4, pulmicort BID -Solumedrol change to prednisone taper --Zosyn PT has 4 cats at home. He states her cough and breathing is worse however she wants to go home because of her cats. 232 GRACIE,TAVO M DO Aug 05, 2017 07:12
[2017-08-05 08:30] VITALS: BP 129/63
[2017-08-05] MEDS ORDERED: predniSONE 10 MG TAB PO SCH (09:00)
[2017-08-05] MEDS ORDERED: BUDE0.5A INH ×4 (10:12→10:35)
[2017-08-05] MEDS ORDERED: MONT10TA24 PO ×2 (10:12)
[2017-08-05] MEDS ORDERED: RT-ALBUINH IH ×2 (10:12)
[2017-08-05] MEDS ORDERED: LORA10TA7 PO ×2 (10:12)
[2017-08-05] MEDS ORDERED: PRD10T PO ×2 (10:12)
[2017-08-05] MEDS ORDERED: AMOX500T2 PO ×2 (10:12)
[2017-08-05] MEDS ORDERED: BENZONATATE 100 MG (TESSALON) CAPSULE PO PRN (10:15)
[2017-08-05] MEDS: LORATADINE (CLARITIN) 10 MG TAB PO SCH (10:54)
[2017-08-05] MEDS: MELOXICAM 7.5 MG (MOBIC) TABLET PO SCH (10:55)
[2017-08-05 13:20] VITALS: BP 129/63
--- NOTE | 2017-08-05 15:17 | Discharge Summary-Hospitalist ---
Diagnosis/Chief Complaint Date of Admission Aug 01, 2017 at 5:15 pm Date of Discharge Aug 05, 2017 at 1:20 pm Admission Diagnosis Assessment: Acute respiratory insufficiency due to acute exacerbation of COPD failed Zithromax and albuterol treatment at [facility] the day before Discharge Diagnosis (1) Respiratory distress Status: Resolved (2) Hypoxemia Status: Resolved (3) COPD with acute exacerbation Status: Acute (4) Hypothyroidism Status: Chronic (5) Osteoarthritis Status: Chronic Discharge Summary Procedures/Consulations Dr Hendrix Discharge Physical Exam Allergies: Coded Allergies: morphine (Verified Allergy, Severe, 09/30/15) DIFFICULTY BREATHING levofloxacin (Verified Allergy, Unknown, joint pain, 03/08/17) Vitals & I&Os Vital Signs Date Time Temp Pulse Resp B/P (MAP) Pulse Ox O2 Delivery O2 Flow Rate FiO2 08/05/17 13:20 63 20 129/63 94 Room Air 08/05/17 08:30 97.7 08/04/17 10:39 21 08/02/17 09:00 2.00 General Appearance: Alert, Oriented X3 Psych/Mental Status: Mental Status NL Hospital Course Pt is a 77yoCF with a history fo asthma/COPD who was admitted for acute exacerbation. She was started on steroids and treated empirically for PNA. She improved throughout her stay and was transitioned to oral medications in prep for discharge. She was seen in consultation by Dr Hendrix, Pulm/CC and will follow up with him as outpatient. She was requesting discharge on day of discharge in order to return home to her cats. She was sent home in stable condition. She is to follow up with her PCP on 08/08 as well. Labs (last 24 hrs) Microbiology 08/01/17 Blood Culture - Preliminary, Resulted No growth 08/01/17 Influenza Types A,B Antigen (DAVID) - Final, Complete Patient resulted labs reviewed. Imaging: Reviewed Imaging Report Discussion & Recommendations Discharge Planning: >30 minutes discharge planning Discharge Home Medications: Active Scripts Active Budesonide 0.5 Mg/2 Ml Ampul.neb 0.5 Mg INH RTBID Amoxicillin 500 Mg Tablet 500 Mg PO BID Proair Hfa (Albuterol Sulfate) 1 Puff Puff 2 Puff IH Q4H 1 PUFF = 90 MCG Prednisone 10 Mg Tab 60 Mg PO DAILY Montelukast Sodium 10 Mg Tablet 10 Mg PO HS Loratadine 10 Mg Tablet 10 Mg PO DAILY Reported Biotin 1,000 Mcg Tablet 1,000 Mcg PO DAILY Meloxicam 15 Mg Tablet 15 Mg PO DAILY Levothyroxine Sodium 50 Mcg Tablet 50 Mcg PO DAILY Instructions to patient/family Please see electronic discharge instructions given to patient. Clinical Quality Measures DVT/VTE Risk/Contraindication: Risk Factor Score Per Nursin RFS Level Per Nursing on Admit: 4+=Very High Copy Copies To 1: ARMIDA DE SOUZA DO Problem Qualifiers (1) Hypothyroidism: Hypothyroidism type: acquired Qualified Codes: E03.9 - Hypothyroidism, unspecified (2) Osteoarthritis: Osteoarthritis location: unspecified site Osteoarthritis type: unspecified Qualified Codes: M19.90 - Unspecified osteoarthritis, unspecified site FE RIVER MD Aug 05, 2017 15:17
--- NOTE | 2017-08-07 10:07 | Physician Query Clarification ---
PQ-Conflicting Diagnosis Admission/Discharge Admission Date: Aug 01, 2017 at 17:15 Discharge Date: Aug 05, 2017 at 13:20 The medical record reflects the following clinical scenario: History/Risk Factors: COPD, ASTHMA Clinical Findings: RESPIRATORY DISTRESS/FAILURE Treatment: IV STEROIDS Question: 08/03 PROGRESS NOTE states under assessment Acute Respiratory Failure due to AECOPD, same progress note states dx is respiratory distress. Please document a response below. Please clarify if patient had Acute Respiratory Failure due to AECOPD or if patient had respiratory distress only. PHYSICIAN RESPONSE Do you agree w/Consulting Dx?: Yes In responding to this query, please exercise your independent professional judgment. The purpose of this communication is to more accurately reflect the complexity of your patients condition. The fact that a question is asked does not imply that any particular answer is desired or expected. Thank you for your timely response to this clarification. Requestors name: [ ] Phone # [ ] THIS PHYSICIAN QUERY FORM IS A PERMANENT PART OF THE MEDICAL RECORD LUIS FELIPE YAÑEZ Aug 07, 2017 10:07 ARMIDA DE SOUZA DO Aug 08, 2017 12:35
--- NOTE | 2017-08-09 09:26 | Physician Query-General Query ---
Physician Query-General Query to Physician: Please clarify which of the following is the correct diagnosis: 1. Acute respiratory failure due to AECOPD 2. Respiratory distress PHYSICIAN RESPONSE: Based on the clinical findings in the record, please respond to the query above on this document as an addendum. Possible, probable, or questionable diagnosis can be coded for INPATIENTS ONLY. Physician Response: Physician Response 1. Acute respiratory distress due to AECOPD If you have questions please contact: Engine Boss: Ext: Thank you for your time and cooperation. Clinical Weatherization Installer/Engine Boss This is a permanent part of the medical record LUIS FELIPE YAÑEZ Aug 09, 2017 09:26 ARMIDA DE SOUZA DO Aug 09, 2017 09:32
== END 2017-08-05 13:20 | disposition home or self-care (01) | DRG 191 ==
LOC: ICU 17:15 → 4TH 08-02 10:32
PROVIDERS: ADMIT Internal Medicine; ATTEND Internal Medicine
DX: J44.1 Chronic obstructive pulmonary disease with (acute) exacerbation (principal); J45.901 Unspecified asthma with (acute) exacerbation; J44.0 Chronic obstructive pulmonary disease with (acute) lower respiratory infection; R06.03 Acute respiratory distress; J20.9 Acute bronchitis, unspecified; E03.9 Hypothyroidism, unspecified; I45.81 Long QT syndrome; M19.92 Post-traumatic osteoarthritis, unspecified site; Z66 Do not resuscitate; K57.90 Diverticulosis of intestine, part unspecified, without perforation or abscess without bleeding; Z87.891 Personal history of nicotine dependence
CPT/HCPCS: 36415; 71045; 76937; 80048; 80053; 82805; 83605; 83735; 83880; 84100; 85007; 85025; 85027; 87040; 87070; 87081; 87205; 87804; 93005; 94640; 94664; 94760; 94761

== ENCOUNTER 2017-08-10 20:33 | Emergency (ER) | payer MEDICARE, OTHER ==
[~2017-08-10] VITALS: Ht 160 cm; Wt 70.8 kg
[~2017-08-10 20:33] MED LIST changes: +AMOX500T2 PO; +BUDE0.5A INH; +LORA10TA7 PO; +MONT10TA24 PO; +NFBIOT1000 PO; +PRD10T PO; +RT-ALBUINH IH
--- OUTSIDE RECORDS SUMMARY | 2017-08-10 20:39 | XMS REPORT | Clinical Summary ---
Author Author User, MISBAH Organization [facility] Physician Meyers Chuck Address Unknown Phone Unavailable Allergies, Adverse Reactions, Alerts Allergy Name Reaction Description Start Date Severity Status Provider STRIDOR Critical Active Carolee Murrayner MORPHINE Critical Active Carolee Brown Conditions or Problems Problem Name Problem Code Onset Date Status Entry Date Provider Comment Standard Description Annotate WHEEZING 786.07 Resolved Carolee Brown Wheezing BRONCHITIS 490 Resolved Carolee Brown Bronchitis, not specified as acute or chronic OSTEOARTHRITIS 715.90 Active Carolee Brown Osteoarthrosis, unspecified whether generalized or localized, involving unspecified site OSTEOPOROSIS, GENERALIZED 733.00 Active Carolee Brown Osteoporosis, unspecified COUGH 786.2 Resolved Carolee Brown Cough HEALTH SCREENING V70.0 Resolved Carolee Brown Routine general medical examination at a health care facility WEIGHT GAIN, ABNORMAL 783.1 Resolved Carolee Brown Abnormal weight gain BONE PAIN 733.90 Resolved Carolee Brown Disorder of bone and cartilage, unspecified COUGH 786.2 Resolved Carolee Brown Cough ASTHMA, CHRN OBST W/(ACUTE) EXACERBATION 493.22 Resolved Carolee Brown Chronic obstructive asthma, with (acute) exacerbation BRONCHITIS 490 Resolved Carolee Brown Bronchitis, not specified as acute or chronic VACCINE AGAINST STREPTOCOCCUS PNEUMONIAE V03.82 Resolved Carolee Brown Need for prophylactic vaccination against Streptococcus pneumoniae [pneumococcus] EDEMA LEG 782.3 Resolved Carolee Brown Edema CELLULITIS 682.9 Resolved Carolee Brown Cellulitis and abscess of unspecified sites ALOPECIA NOS 704.00 Resolved Carolee Brown Alopecia, unspecified OSTEOPOROSIS NEC 733.09 Active Carolee Brown Other osteoporosis PNEUMONIA 486 Resolved Carolee Brown Pneumonia, organism unspecified ACUTE RESPIRATORY FAILURE 518.81 Resolved Carolee Brown Acute respiratory failure SEBORRHEIC KERATOSIS 702.19 Resolved Carolee Brown Other seborrheic keratosis HYPOTHYROIDISM, PRIMARY 244.9 Active Carolee Brown Unspecified hypothyroidism LEG PAIN, RIGHT 729.5 Resolved Carolee Brown Pain in limb SHOULDER PAIN 719.41 Resolved Carolee Brown Pain in joint involving shoulder region LEG PAIN, RIGHT 729.5 Resolved Carolee Brown Pain in limb CELLULITIS AND ABSCESS OF LEG EXCEPT FOOT 682.6 Resolved Carolee Brown Cellulitis and abscess of leg, except foot URTICARIA, ACUTE 708.9 Active Carolee Brown Unspecified urticaria Medication List Medication Instructions Start Date Stop Date Generic Name NDC Status Provider Patient Instruction TRIAMCINOLONE ACETONIDE 0.1 % CREA apply BID TRIAMCINOLONE ACETONIDE (TOP) 44584720675 Active Carolee Brown ZOSTAVAX 36154 UNT/0.65ML SOLR 1 injection once to prevent Shingles ZOSTER VACCINE LIVE 97944131707 No Longer Active Caroleebatsheva Brown ATARAX 25 MG TAB 1 PO QHS HYDROXYZINE HCL No Longer Active Carolee Luz Marina Brown PROAIR HFA 108 (90 BASE) MCG/ACT AERS 2 puff Q4 hrs prn wheezing ALBUTEROL SULFATE 46006989453 No Longer Active Caroleebatsheva Brown SYNTHROID 0.05 MG TAB 1 PO daily on empty stomach LEVOTHYROXINE SODIUM 81441744392 Active Akilah Ambrocio CLOBETASOL PROPIONATE 0.05 % CREA Apply to affected areas BID CLOBETASOL PROPIONATE 87469643919 No Longer Active Carolee Brown PREDNISONE 20 MG TAB 2 pills at once for 2 days then 1 pill daily for 5 days PREDNISONE 27248476981 No Longer Active Carolee Brown HYDROCODONE-ACETAMINOPHEN 10-325 MG TABS 1 PO Q4hrs prn pain 2011 HYDROCODONE-ACETAMINOPHEN 43772994334 No Longer Active Caroleebatsheva Brown CLEOCIN 300 MG CAPS 1 PO Q8hrs for 10 days CLINDAMYCIN HCL 67948868030 No Longer Active Caroleebatsheva Brown BACTRIM DS 800-160 MG TAB 1 PO BID TRIMETHOPRIM- SULFAMETHOXAZOLE 23011223912 No Longer Active Carolee Brown MOBIC 15 MG TABS 1 PO DAILY MELOXICAM 57353542823 Active Akilah Ambrocio DAYPRO 600 MG TABS 1 PO TID OXAPROZIN 05263510652 No Longer Active Carolee Brown MOBIC 15 MG TABS 1 po daily MELOXICAM 09057011636 No Longer Active Akilah Ambrocio DAYPRO 600 MG TAB 2 po daily OXAPROZIN 85689849498 No Longer Active Caroleebatsheva Brown CELEBREX 200 MG CAPS 1 po BID CELECOXIB 37512331464 No Longer Active Carolee Luz Marina Brown BACTRIM DS 800-160 MG TAB 1 PO BID TRIMETHOPRIM- SULFAMETHOXAZOLE 39733592807 No Longer Active Carolee Luz Marina Stephanie BACTRIM DS 800-160 MG TAB 1 PO BID TRIMETHOPRIM- SULFAMETHOXAZOLE 76481107868 No Longer Active Carolee Luz Marina Brown K-DUR 10 MEQ TAB CR 1 PO daily with Lasix PRN POTASSIUM CHLORIDE No Longer Active Carolee Luz Marina Brown LASIX 20 MG TAB 1 PO QD PRN FUROSEMIDE 50942462783 No Longer Active Carolee Luz Marina Brown FOSAMAX 70 MG TABS 1 PO Qwk ALENDRONATE SODIUM 12881860616 No Longer Active Carolee Luz Marina Brown BACTRIM DS 800-160 MG TAB 1 PO BID TRIMETHOPRIM- SULFAMETHOXAZOLE 63630094361 No Longer Active Carolee Luz Marina Brown SYNTHROID 0.025 MG TAB 1 PO daily on empty stomach LEVOTHYROXINE SODIUM 51811578983 No Longer Active Carolee Luz Marina Brown DICLOFENAC SODIUM 50 MG TBEC I PO TID DICLOFENAC SODIUM 24260496034 No Longer Active Carolee Luz Marina Brown XOPENEX CONCENTRATE 1.25 MG/0.5ML NEBU 1 Neb treatment QID prn LEVALBUTEROL HCL 08012623042 No Longer Active Carolee Luz Marina Brown SYMBICORT 160-4.5 MCG/ACT AERO 2 puffs BID BUDESONIDE -FORMOTEROL FUMARATE 45090743646 No Longer Active Carolee Luz Marina Brown SPIRIVA HANDIHALER 18 MCG CAPS 1 puff daily TIOTROPIUM BROMIDE MONOHYDRATE 48222825698 No Longer Active Carolee Luz Marina Brown SINGULAIR 10 MG TABS 1 PO QHS MONTELUKAST SODIUM 95648257326 No Longer Active Carolee Luz Marina Brown DICLOFENAC SODIUM 50 MG TBEC 1 PO TID DICLOFENAC SODIUM 61463049020 No Longer Active Carolee Luz Marina Brown DUONEB 0.5-2.5 (3) MG/3ML SOLN 1 tx QID PRN IPRATROPIUM- ALBUTEROL 42789575261 No Longer Active Carolee Luz Marina Brown ROBITUSSIN A-C 10-100 MG/5ML SYRUP 1 teaspoon PO Q 4-6 hr prn ROBITUSSIN A-C 10-100 MG/5ML SYRUP No Longer Active Carolee Luz Marina Brown BIAXIN 500 MG TAB 1 PO BID CLARITHROMYCIN 66132675856 No Longer Active Carolee Luz Marina Brown PREDNISONE 20 MG TABS 3 po for 3 days, then 2 po for 2 days, then 1 po for 3 days. PREDNISONE 34882009917 No Longer Active Carolee Luz Marina Brown CIPRO 250 MG TABS 1 PO BID CIPROFLOXACIN HCL 50991205838 No Longer Active Carolee Luz Marina Brown VOLTAREN-XR RT86V-JMC 1 PO daily DICLOFENAC SODIUM [id number] 72189650776 No Longer Active Carolee Luz Marina Brown LASIX 20 MG TAB 1 PO QD FUROSEMIDE 90277173221 No Longer Active Carolee Luz Marina Brown ADVAIR DISKUS 100-50 MCG/DOSE MISC 1 puff twice daily. Rinse mouth after use. FLUTICASONE-SALMETEROL 43773543371 No Longer Active Carolee Luz Marina Brown CLEOCIN 150 MG CAPS 1 PO daily after Bactrim completed until further notice. CLINDAMYCIN HCL 67373367745 No Longer Active Carolee Luz Marina Brown DAYPRO 600 MG TABS 2 PO daily OXAPROZIN 14460413429 No Longer Active Carolee Luz Marina Brown BACTRIM DS 800-160 MG TAB 1 PO BID TRIMETHOPRIM- SULFAMETHOXAZOLE 69580527159 No Longer Active Carolee Luz Marina Brown BACTRIM DS 800-160 MG TAB 1 PO BID TRIMETHOPRIM- SULFAMETHOXAZOLE 27112945444 No Longer Active Carolee Luz Marina Brown PREDNISONE 20 MG TAB 2 pills daily at once for 4 days, 1 once daily for 3 days PREDNISONE 63959170854 No Longer Active Carolee Luz Marina Brown LEVAQUIN 750 MG TABS 1 PO daily LEVOFLOXACIN 71534189129 No Longer Active Carolee Luz Marina Brown PREDNISONE 20 MG TAB 2 pills at once for 2 days then 1 pill daily for 2 days PREDNISONE 36362498208 No Longer Active Carolee Luz Marina Brown ROBITUSSIN A-C 10-100 MG/5ML SYRUP 1 teaspoon PO Q 4-6 hr prn ROBITUSSIN A-C 10-100 MG/5ML SYRUP 50844267165 No Longer Active Carolee Luz Marina Brown BIAXIN XL PAC 500 MG TB24 2 pills at same time daily for 7 days CLARITHROMYCIN 46999598597 No Longer Active Carolee Luz Marina Brown DAYPRO 600 MG TABS 2 PO QAM OXAPROZIN 60592454896 No Longer Active Carolee Luz Marina Brown ALBUTEROL 90 MCG/ACT AERS 2 puffs Q4-6hrs prn ALBUTEROL 07940254354 No Longer Active Carolee Luz Marina Brown ADVAIR DISKUS 250-50 MCG/DOSE MISC 1 Puff BID FLUTICASONE-SALMETEROL 02427755329 No Longer Active Carolee Luz Marina Brown BONIVA 150 MG TABS 1 PO Q month IBANDRONATE SODIUM 59151196870 No Longer Active Carolee Luz Marina Brown CELEBREX 200 MG CAPS 1 po BID CELECOXIB 68172807397 No Longer Active Carolee Luz Marina Brown BACTRIM DS 800-160 MG TAB 1 PO BID TRIMETHOPRIM- SULFAMETHOXAZOLE 05311139068 No Longer Active Carolee Luz Marina Brown K-DUR 10 MEQ TAB CR 1 PO BID with Lasix POTASSIUM CHLORIDE 08904156523 No Longer Active Carolee Luz Marina Brown LASIX 20 MG TAB 1 PO BID for swelling FUROSEMIDE 05333220544 No Longer Active Caroleebatsheva Brown LOVENOX 40 MG/0.4ML SOLN 1 injection prior to flight to prevent blood clot ENOXAPARIN SODIUM 99758847816 No Longer Active Caroleebatsheva Brown PREDNISONE 20 MG TAB 3 PO daily for 3 days, 2 PO daily for 3 days, 1 PO daily for 2 days PREDNISONE 95787726045 No Longer Active Caroleebatsheva Brown LEVAQUIN 500 MG TAB 1 PO QD for 7 Days LEVOFLOXACIN 06007304516 No Longer Active Carolee Brown ACTONEL WITH CALCIUM 35-1250 MG TABS 1 PO weekly RISEDRONATE-CALCIUM CARBONATE 64631204031 No Longer Active Caroleebatsheva Brown BONIVA 150 MG TABS 1 PO Q month as directed IBANDRONATE SODIUM 62712484089 No Longer Active Carolee Luz Marina Brown ZITHROMAX Z-JOE 250 MG TABS as directed AZITHROMYCIN 17266443039 No Longer Active Megan Siegrist MEDROL (JOE) 4 MG TABS as directed METHYLPREDNISOLONE 40695690651 No Longer Active Megan Siegrist ZITHROMAX Z-JOE 250 MG TABS as directed AZITHROMYCIN 00869943203 No Longer Active Caroleebatsheva Brown ALBUTEROL 90 MCG/ACT AERS 2 puffs Q4-6hrs prn ALBUTEROL 46766344812 No Longer Active Carolee Luz Marina Brown ALUPENT 0.65 MG/ACT AERP as needed METAPROTERENOL SULFATE 36150208563 No Longer Active Carolee Luz Marina Stephanie MEDROL (JOE) 4 MG TABS use as directed METHYLPREDNISOLONE 70021824866 No Longer Active Carolee Luz Marina Brown MULTIVITAMINS TABS 1 po daily MULTIPLE VITAMIN 57382015235 No Longer Active Carolee Luz Marina Stephanie CALTRATE 600 PLUS-VIT D 600-200 MG-IU TABS 1 PO TID CALCIUM-VITAMIN D 61530730196 Active Carolee Luz Marina Murrayner ADVIL 200 MG CAPS prn IBUPROFEN 37461633216 No Longer Active Carolee Luz Marina Murrayner ZITHROMAX Z-JOE 250 MG TABS use as directed AZITHROMYCIN 45932028732 No Longer Active Carolee Luz Marina Brown CALCIUM 500 MG TABS 1 po tID CALCIUM 45143316571 No Longer Active Carolee Luz Marina Murrayner BEXTRA 20 MG TABS one po daily VALDECOXIB 97298816773 No Longer Active Carolee Luz Marina Stephanie Immunizations Vaccine Administration Date Value Standard Description Influenza vaccine given Done influenza virus vaccine, unspecified formulation Vital Signs Date Name Value Unit Range Description blood pressure, diastolic - 8462-4 74 mm[Hg] BP holland blood pressure, systolic - 8480-6 130 mm[Hg] BP sys pulse rate E&M - 8867-4 76 /min Heart rate respiratory rate E&M - 9279-1 14 /min Resp rate blood pressure, diastolic - 8462-4 64 mm[Hg] BP holland blood pressure, systolic - 8480-6 124 mm[Hg] BP sys pulse rate E&M - 8867-4 78 /min Heart rate respiratory rate E&M - 9279-1 14 /min Resp rate Diagnostic Results Date Name Value Unit Range Description Clinical Lists Update: CBC,CMP,FLP,TSH,Free T4 - Chemistry Estimated Glomerular Filtration Rate (calc) 88 mL/min/1.73m2 LDL cholesterol, serum 98 mg/dL glucose, plasma fasting 85 mg/dL alkaline phosphatase, serum 97 U/L cholesterol/HDL ratio, serum, percent 2.9 urea nitrogen, blood 20 mg/dL anion gap, serum 7 calcium, serum 9.1 mg/dL sodium, serum 143 mmol/L chloride, serum 112 mmol/L triglyceride, serum, fasting 58 mg/dL cholesterol, serum 169 mg/dL bilirubin, serum, total 0.3 mg/dL carbon dioxide, venous blood 28.0 mmol/L alanine aminotransferase (SGPT), serum 10 U/L creatinine, serum 0.7 mg/dL aspartate aminotransferase (SGOT), serum 14 U/L thyroxine, serum, free 0.94 ng/dL protein, total, serum 5.7 g/dL HDL cholesterol, serum 59.0 mg/dL potassium, serum 4.2 mmol/L thyroid stimulating hormone, serum 5.62 u[iU]/mL albumin, serum 3.9 g/dL Clinical Lists Update: CBC,CMP,FLP,TSH,Free T4 - Hematology hemoglobin, blood 12.7 g/dL hematocrit, blood 40 % platelet count 231 10*3/mm3 erythrocyte (RBC) count 4.04 10*6/mm3 leukocyte count, blood 5.8 10*3/mm3 mean corpuscular volume, RBC 99 fL red blood cell distribution width 13.9 % Clinical Lists Update: CMP,FLP,TSH,FREE T4 - Chemistry alanine aminotransferase (SGPT), serum 9 U/L LDL cholesterol, serum 94 mg/dL bilirubin, serum, total 0.6 mg/dL carbon dioxide, venous blood 27.0 mmol/L triglyceride, serum, fasting 56 mg/dL cholesterol, serum 173 mg/dL sodium, serum 142 mmol/L chloride, serum 109 mmol/L anion gap, serum 10 calcium, serum 9.1 mg/dL cholesterol/HDL ratio, serum, percent 2.5 urea nitrogen, blood 18 mg/dL glucose, plasma fasting 82 mg/dL alkaline phosphatase, serum 81 U/L Estimated Glomerular Filtration Rate (calc) 67 mL/min/1.73m2 albumin, serum 4.1 g/dL thyroxine, serum, free 0.94 ng/dL aspartate aminotransferase (SGOT), serum 15 U/L HDL cholesterol, serum 68.0 mg/dL protein, total, serum 5.8 g/dL thyroid stimulating hormone, serum 2.08 u[iU]/mL potassium, serum 3.9 mmol/L creatinine, serum 0.9 mg/dL Encounters Code Encounter Date Provider Facility CPT-06862 Ofc Vst, Est Level III 13:18:57 CDT Carolee Brown DO, FACP CPT-84221 Ofc Vst, Est Level III 19:51:40 [employer] [employer] Carolee Brown DO, FACP CPT-54647 Ofc Vst, Est Level III 16:53:45 [employer] Carolee Brown DO, FACP CPT-49970 Ofc Vst, Est Level III 13:12:19 [employer] Carolee Strongi S Brown, DO, FACP CPT-17076 Ofc Vst, Est Level III 14:42:44 CDT Carolee Luz Marina Wheeler Brown, DO, FACP CPT-23783 Ofc Vst, Est Level III 14:09:17 CDT Caroleebatsheva Wheeler Brown, DO, FACP CPT-90768 Ofc Vst, Est Level III 11:30:16 [employer] Caroleebatsheva Wheeler Brown, DO, FACP CPT-12544 Ofc Vst, Est Level III 11:32:30 [employer] Carolee Wheeler Brown, DO, FACP CPT-05252 Ofc Vst, Est Level IV 10:59:40 CDT Caroleebatsheva Wheeler Stephanie, DO, FACP CPT-79908 Ofc Vst, Est Level III 16:44:16 CDT Caroleebatsheva Wheeler Stephanie, DO, FACP CPT-76386 Ofc Vst, Est Level IV 11:31:54 CDT Caroleebatsheva Wheeler Stephanie, DO, FACP CPT-46020 Ofc Vst, Est Level III 14:42:52 CDT Caroleebatsheva Brown [facility] CPT-22277 Ofc Vst, Est Level IV 10:38:00 CDT Caroleebatsheva Wheeler Stephanie, DO, FACP CPT-12717 Ofc Vst, Est Level IV 11:51:26 CDT Caroleebatsheva Wheeler Stephanie, DO, FACP CPT-07152 Ofc Vst, Est Level V 11:15:19 CDT Carolee Luz Marina Wheeler Stephanie, DO, FACP CPT-99208 Ofc Vst, Est Level IV 11:14:51 CDT Carolee Luz Marina Wheeler Stephanie, DO, FACP CPT-28636 Ofc Vst, Est Level IV 10:51:44 CDT Caroleebatsheva Wheeler Brown, DO, FACP CPT-15363 Ofc Vst, Est Level IV 10:18:20 CDT Carolee Luz Marina Wheeler Brown, DO, FACP CPT-12836 Ofc Vst, Est Level IV 11:25:16 CDT Caroleebatsheva Wheeler Brown, DO, FACP CPT-01096 Ofc Vst, Est Level V 10:51:26 CDT Caorlee Luz Marina Wheeler Brown, DO, FACP CPT-80151 Ofc Vst, Est Level IV 15:18:28 [employer] Carolee Wheeler Brown, DO, FACP CPT-81820 Ofc Vst, Est Level IV 09:55:03 [employer] Caroleebatsheva Wheeler Stephanie, DO, FACP CPT-69835 Ofc Vst, Est Level IV 11:29:27 CDT Caroleebatsheva Wheeler Brown, DO, FACP CPT-22977 Ofc Vst, Est Level IV 11:56:00 CDT Carolee Wheeler Brown, DO, FACP CPT-49014 Ofc Vst, Est Level IV 15:25:37 CDT Caroleebatsheva Wheeler Brown, DO, FACP CPT-13431 Ofc Vst, Est Level III 16:06:39 CDT Caroleebatsheva Wheeler Brown, DO, FACP CPT-47226 Ofc Vst, Est Level IV 10:01:16 CDT Carolee Wheeler Brown, DO, FACP CPT-41972 Ofc Vst, Est Level IV 10:26:26 [employer] Carolee Wheeler Stephanie, DO, FACP CPT-35992 Ofc Vst, Est Level IV 14:59:16 CDT Carolee Luz Marinarashi Strongi Summer Brown, DO, FACP CPT-29708 Ofc Vst, Est Level III 10:51:23 CDT Carolee Luz Marina Stephanie Strongi S Brown, DO, FACP CPT-58339 Ofc Vst, Est Level II 11:14:55 CDT Carolee Luz Marina Stephanie Strongi Summer Brown, DO, FACP CPT-90823 Ofc Vst, Est Level III 10:01:34 CDT Carolee Luz Marina Stephanie Strongi S Stephanie, DO, FACP CPT-78935 Ofc Vst, Est Level IV 14:38:36 CDT Caroleebatsheva [facility] Chuck CPT-05058 Ofc Vst, Est Level IV 15:38:00 CDT Carolee Luz Marina Brown [facility] Meyers Chuck CPT-91661 Ofc Vst, Est Level V 10:50:54 CDT Carolee Luz Marina Brown [facility] Meyers Chuck CPT-16141 Ofc Vst, Est Level III 10:15:13 CDT Carolee Luz Marina Brown [facility] Meyers Chuck CPT-23331 Ofc Vst, Est Level IV 09:36:45 CDT Carolee Luz Marina Brown [facility] Meyers Chuck CPT-76522 Ofc Vst, Est Level IV 13:07:23 CDT Carolee Luz Marina Brown [facility] Meyers Chuck CPT-00245 Ofc Vst, Est Level IV 14:36:05 CDT Carolee Luz Marina Brown [facility] Meyers Chuck CPT-12093 Ofc Vst, Est Level III 14:53:52 CDT Caroleebatsheva Brown [facility] Meyers Chuck CPT-62580 Ofc Vst, New Level III 17:13:16 [employer] Carolee Brown [facility] Meyers Chuck Procedures Code Procedure Name Date Entry Date Standard Description CPT-G0439 Medicare Annual Wellness Visit 20:41:18 CDT CPT-G8443 E-Prescribing Medication Sent 19:51:40 [employer] CPT-G8445 E-Prescribing Not sent due to no medication given 15:39: 28 CDT CPT-G0439 Medicare Annual Wellness Visit 15:39:28 CDT CPT-G8445 E-Prescribing Not sent due to no medication given 16:53: 45 [employer] CPT-G8445 E-Prescribing Not sent due to no medication given 13:12: 19 [employer] CPT-G8443 E-Prescribing Medication Sent 14:42:44 CDT CPT-G0438 Medicare Annual Wellness Visit Initial 11:23:44 CDT CPT-30470 Injection 10:15:13 CDT
--- OUTSIDE RECORDS SUMMARY | 2017-08-10 20:40 | XMS REPORT | Clinical Summary ---
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 [...] % CREA apply BID TRIAMCINOLONE ACETONIDE (TOP) 86153312487 Active Carolee Brown ZOSTAVAX 02493 UNT/0.65ML SOLR 1 injection once to prevent Shingles ZOSTER VACCINE LIVE 95777469359 No Longer Active Caroleebatsheva Brown ATARAX 25 MG TAB 1 PO QHS HYDROXYZINE HCL No Longer Active Caroleebatsheva Brown PROAIR HFA 108 (90 BASE) MCG/ACT AERS 2 puff Q4 hrs prn wheezing ALBUTEROL SULFATE 62614219200 No Longer Active Caroleebatsheva Brown SYNTHROID 0.05 MG TAB 1 PO daily on empty stomach LEVOTHYROXINE SODIUM 23625510184 Active Akilah Ambrocio CLOBETASOL PROPIONATE 0.05 % CREA Apply to affected areas BID CLOBETASOL PROPIONATE 73257149884 No Longer Active Carolee Brown PREDNISONE 20 MG TAB 2 pills at once for 2 days then 1 pill daily for 5 days PREDNISONE 82493646643 No Longer Active Carolee Brown HYDROCODONE-ACETAMINOPHEN 10-325 MG TABS 1 PO Q4hrs prn pain 2011 HYDROCODONE-ACETAMINOPHEN 30740839585 No Longer Active Caroleebatsheva Brown CLEOCIN 300 MG CAPS 1 PO Q8hrs for 10 days CLINDAMYCIN HCL 82281092323 No Longer Active Caroleebatsheva Brown BACTRIM DS 800-160 MG TAB 1 PO BID TRIMETHOPRIM- SULFAMETHOXAZOLE 22836178989 No Longer Active Carolee Brown MOBIC 15 MG TABS 1 PO DAILY MELOXICAM 28281948585 Active Akilah Ambrocio DAYPRO 600 MG TABS 1 PO TID OXAPROZIN 29596848141 No Longer Active Carolee Brown MOBIC 15 MG TABS 1 po daily MELOXICAM 57870669793 No Longer Active Akilah Ambrocio DAYPRO 600 MG TAB 2 po daily OXAPROZIN 43442288497 No Longer Active Caroleebatsheva Brown CELEBREX 200 MG CAPS 1 po BID CELECOXIB 95112705312 No Longer Active Carolee Luz Marina Brown BACTRIM DS 800-160 MG TAB 1 PO BID TRIMETHOPRIM- SULFAMETHOXAZOLE 87926568821 No Longer Active Carolee Luz Marina Brown BACTRIM DS 800-160 MG TAB 1 PO BID TRIMETHOPRIM- SULFAMETHOXAZOLE 79361200653 No Longer Active Carolee Luz Marina Brown K-DUR 10 MEQ TAB CR 1 PO daily with Lasix PRN POTASSIUM CHLORIDE No Longer Active Carolee Luz Marina Brown LASIX 20 MG TAB 1 PO QD PRN FUROSEMIDE 71836001525 No Longer Active Carolee Luz Marina Brown FOSAMAX 70 MG TABS 1 PO Qwk ALENDRONATE SODIUM 36870606370 No Longer Active Carolee Luz Marina Brown BACTRIM DS 800-160 MG TAB 1 PO BID TRIMETHOPRIM- SULFAMETHOXAZOLE 07503170676 No Longer Active Carolee Luz Marina Brown SYNTHROID 0.025 MG TAB 1 PO daily on empty stomach LEVOTHYROXINE SODIUM 36006892943 No Longer Active Carolee Luz Marina Brown DICLOFENAC SODIUM 50 MG TBEC I PO TID DICLOFENAC SODIUM 46664871636 No Longer Active Carolee Luz Marina Brown XOPENEX CONCENTRATE 1.25 MG/0.5ML NEBU 1 Neb treatment QID prn LEVALBUTEROL HCL 03490010731 No Longer Active Carolee Luz Marina Brown SYMBICORT 160-4.5 MCG/ACT AERO 2 puffs BID BUDESONIDE -FORMOTEROL FUMARATE 30789733922 No Longer Active Carolee Luz Marina Brown SPIRIVA HANDIHALER 18 MCG CAPS 1 puff daily TIOTROPIUM BROMIDE MONOHYDRATE 92209813584 No Longer Active Carolee Luz Marina Brown SINGULAIR 10 MG TABS 1 PO QHS MONTELUKAST SODIUM 22201622207 No Longer Active Carolee Luz Marina Brown DICLOFENAC SODIUM 50 MG TBEC 1 PO TID DICLOFENAC SODIUM 47779198829 No Longer Active Carolee Luz Marina Brown DUONEB 0.5-2.5 (3) MG/3ML SOLN 1 tx QID PRN IPRATROPIUM- ALBUTEROL 43664564180 No Longer Active Carolee Luz Marina Brown ROBITUSSIN A-C 10-100 MG/5ML SYRUP 1 teaspoon PO Q 4-6 hr prn ROBITUSSIN A-C 10-100 MG/5ML SYRUP No Longer Active Carolee Luz Marina Brown BIAXIN 500 MG TAB 1 PO BID CLARITHROMYCIN 29084378688 No Longer Active Carolee Luz Marina Brown PREDNISONE 20 MG TABS 3 po for 3 days, then 2 po for 2 days, then 1 po for 3 days. PREDNISONE 74799790707 No Longer Active Carolee Luz Marina Brown CIPRO 250 MG TABS 1 PO BID CIPROFLOXACIN HCL 22540174360 No Longer Active Carolee Luz Marina Brown VOLTAREN-XR AZ46Q-QNK 1 PO daily DICLOFENAC SODIUM [id number]-LKC 97211853241 No Longer Active Carolee Luz Marina Brown LASIX 20 MG TAB 1 PO QD FUROSEMIDE 86649198533 No Longer Active Carolee Luz Marina Brown ADVAIR DISKUS 100-50 MCG/DOSE MISC 1 puff twice daily. Rinse mouth after use. FLUTICASONE-SALMETEROL 25536708197 No Longer Active Carolee Luz Marina Brown CLEOCIN 150 MG CAPS 1 PO daily after Bactrim completed until further notice. CLINDAMYCIN HCL 06232936661 No Longer Active Carolee Luz Marina Brown DAYPRO 600 MG TABS 2 PO daily OXAPROZIN 23334169833 No Longer Active Carolee Luz Marina Brown BACTRIM DS 800-160 MG TAB 1 PO BID TRIMETHOPRIM- SULFAMETHOXAZOLE 22171903021 No Longer Active Carolee Luz Marina Bronw BACTRIM DS 800-160 MG TAB 1 PO BID TRIMETHOPRIM- SULFAMETHOXAZOLE 58306909839 No Longer Active Carolee Luz Marina Brown PREDNISONE 20 MG TAB 2 pills daily at once for 4 days, 1 once daily for 3 days PREDNISONE 58750607347 No Longer Active Carolee Luz Marina Brown LEVAQUIN 750 MG TABS 1 PO daily LEVOFLOXACIN 47330360913 No Longer Active Carolee Luz Marina Brown PREDNISONE 20 MG TAB 2 pills at once for 2 days then 1 pill daily for 2 days PREDNISONE 43827926399 No Longer Active Carolee Luz Marina Brown ROBITUSSIN A-C 10-100 MG/5ML SYRUP 1 teaspoon PO Q 4-6 hr prn ROBITUSSIN A-C 10-100 MG/5ML SYRUP 61367589794 No Longer Active Carolee Luz Marina Brown BIAXIN XL PAC 500 MG TB24 2 pills at same time daily for 7 days CLARITHROMYCIN 87678520211 No Longer Active Carolee Luz Marina Brown DAYPRO 600 MG TABS 2 PO QAM OXAPROZIN 03945100122 No Longer Active Carolee Luz Marina Brown ALBUTEROL 90 MCG/ACT AERS 2 puffs Q4-6hrs prn ALBUTEROL 32433136465 No Longer Active Carolee Luz Marina Brown ADVAIR DISKUS 250-50 MCG/DOSE MISC 1 Puff BID FLUTICASONE-SALMETEROL 32384876796 No Longer Active Carolee Luz Marina Brown BONIVA 150 MG TABS 1 PO Q month IBANDRONATE SODIUM 72668862246 No Longer Active Carolee Luz Marina Brown CELEBREX 200 MG CAPS 1 po BID CELECOXIB 18841111410 No Longer Active Carolee Luz Marina Brown BACTRIM DS 800-160 MG TAB 1 PO BID TRIMETHOPRIM- SULFAMETHOXAZOLE 44073780816 No Longer Active Carolee Luz Marina Brown K-DUR 10 MEQ TAB CR 1 PO BID with Lasix POTASSIUM CHLORIDE 15741112923 No Longer Active Carolee Luz Marina Brown LASIX 20 MG TAB 1 PO BID for swelling FUROSEMIDE 73897115342 No Longer Active Caroleebatsheva Brown LOVENOX 40 MG/0.4ML SOLN 1 injection prior to flight to prevent blood clot ENOXAPARIN SODIUM 85672331298 No Longer Active Carolee Luz Marina Brown PREDNISONE 20 MG TAB 3 PO daily for 3 days, 2 PO daily for 3 days, 1 PO daily for 2 days PREDNISONE 16609390627 No Longer Active Carolee Luz Marina Brown LEVAQUIN 500 MG TAB 1 PO QD for 7 Days LEVOFLOXACIN 05248926060 No Longer Active Carolee Brown ACTONEL WITH CALCIUM 35-1250 MG TABS 1 PO weekly RISEDRONATE-CALCIUM CARBONATE 58319650116 No Longer Active Caroleebatsheva Brown BONIVA 150 MG TABS 1 PO Q month as directed IBANDRONATE SODIUM 46819645720 No Longer Active Carolee Luz Marina Brown ZITHROMAX Z-JOE 250 MG TABS as directed AZITHROMYCIN 65787271217 No Longer Active Megan Siegrist MEDROL (JOE) 4 MG TABS as directed METHYLPREDNISOLONE 70900840504 No Longer Active Megan Siegrist ZITHROMAX Z-JOE 250 MG TABS as directed AZITHROMYCIN 54423327249 No Longer Active Carolee Luz Marina Brown ALBUTEROL 90 MCG/ACT AERS 2 puffs Q4-6hrs prn ALBUTEROL 80503847088 No Longer Active Carolee Luz Marina Murrayner ALUPENT 0.65 MG/ACT AERP as needed METAPROTERENOL SULFATE 77596740052 No Longer Active Carolee Luz Marina Brown MEDROL (JOE) 4 MG TABS use as directed METHYLPREDNISOLONE 24275397277 No Longer Active Carolee Luz Marina Murrayner MULTIVITAMINS TABS 1 po daily MULTIPLE VITAMIN 32698364156 No Longer Active Carolee Luz Marina Murrayner CALTRATE 600 PLUS-VIT D 600-200 MG-IU TABS 1 PO TID CALCIUM-VITAMIN D 01595174754 Active Carolee Luz Marina Murrayner ADVIL 200 MG CAPS prn IBUPROFEN 08759272909 No Longer Active Carolee Luz Marina Murrayner ZITHROMAX Z-JOE 250 MG TABS use as directed AZITHROMYCIN 86384524253 No Longer Active Carolee Luz Marina Murrayner CALCIUM 500 MG TABS 1 po tID CALCIUM 44645976761 No Longer Active Carolee Luz Marina Murrayner BEXTRA 20 MG TABS one po daily VALDECOXIB 88629034674 No Longer Active Carolee Luz Marina Stephanie [...] Clinical Lists Update: CBC,CMP,FLP,TSH,Free T4 - Chemistry albumin, serum 3.9 g/dL Estimated Glomerular Filtration Rate (calc) 88 mL/min/1.73m2 urea nitrogen, blood 20 mg/dL calcium, serum 9.1 mg/dL chloride, serum 112 mmol/L cholesterol, serum 169 mg/dL carbon dioxide, venous blood 28.0 mmol/L creatinine, serum 0.7 mg/dL thyroxine, serum, free 0.94 ng/dL HDL cholesterol, serum 59.0 mg/dL thyroid stimulating hormone, serum 5.62 u[iU]/mL LDL cholesterol, serum 98 mg/dL potassium, serum 4.2 mmol/L protein, total, serum 5.7 g/dL aspartate aminotransferase (SGOT), serum 14 U/L alanine aminotransferase (SGPT), serum 10 U/L bilirubin, serum, total 0.3 mg/dL triglyceride, serum, fasting 58 mg/dL sodium, serum 143 mmol/L anion gap, serum 7 cholesterol/HDL ratio, serum, percent 2.9 glucose, plasma fasting 85 mg/dL alkaline phosphatase, serum 97 U/L Clinical Lists Update: CBC,CMP,FLP,TSH,Free T4 - Hematology hemoglobin, blood 12.7 g/dL hematocrit, blood 40 % platelet count 231 10*3/mm3 erythrocyte (RBC) count 4.04 10*6/mm3 leukocyte count, blood 5.8 10*3/mm3 mean corpuscular volume, RBC 99 fL red blood cell distribution width 13.9 % Clinical Lists Update: CMP,FLP,TSH,FREE T4 - Chemistry creatinine, serum 0.9 mg/dL albumin, serum 4.1 g/dL HDL cholesterol, serum 68.0 mg/dL thyroid stimulating hormone, serum 2.08 u[iU]/mL LDL cholesterol, serum 94 mg/dL potassium, serum 3.9 mmol/L protein, total, serum 5.8 g/dL aspartate aminotransferase (SGOT), serum 15 U/L alanine aminotransferase (SGPT), serum 9 U/L bilirubin, serum, total 0.6 mg/dL triglyceride, serum, fasting 56 mg/dL sodium, serum 142 mmol/L anion gap, serum 10 cholesterol/HDL ratio, serum, percent 2.5 glucose, plasma fasting 82 mg/dL Estimated Glomerular Filtration Rate (calc) 67 mL/min/1.73m2 carbon dioxide, venous blood 27.0 mmol/L cholesterol, serum 173 mg/dL chloride, serum 109 mmol/L calcium, serum 9.1 mg/dL urea nitrogen, blood 18 mg/dL alkaline phosphatase, serum 81 U/L thyroxine, serum, free 0.94 ng/dL Encounters Code Encounter Date Provider Facility CPT-96009 Ofc Vst, Est Level III 13:18:57 CDT Carolee Brown DO, FACP CPT-98119 Ofc Vst, Est Level III 19:51:40 AUDIOVISUAL LIBRARIAN Carolee Brown DO, FACSenthil CPT-03710 Ofc Vst, Est Level III 16:53:45 AUDIOVISUAL LIBRARIAN Carolee Brown DO, FACP CPT-99107 Ofc Vst, Est Level III 13:12:19 AUDIOVISUAL LIBRARIAN Carolee Wheeler Brown, DO, FACP CPT-52170 Ofc Vst, Est Level III 14:42:44 CDT Caroleebatsheva Wheeler Brown, DO, FACP CPT-01358 Ofc Vst, Est Level III 14:09:17 CDT Caroleebatsheva Wheeler Stephanie, DO, FACP CPT-07455 Ofc Vst, Est Level III 11:30:16 AUD[employer]OVISUAL LIBRARIAN Carolee Wheeler Stephanie, DO, FACP CPT-43068 Ofc Vst, Est Level III 11:32:30 AUDIOVISUAL LIBRARIAN Carolee Wheeler Stephanie, DO, FACP CPT-96726 Ofc Vst, Est Level IV 10:59:40 CDT Caroleebatsheva Wheeler Stephanie, DO, FACP CPT-10424 Ofc Vst, Est Level III 16:44:16 CDT Caroleebatsheva Wheeler Stephanie, DO, FACP CPT-28004 Ofc Vst, Est Level IV 11:31:54 CDT Caroleebatsheva Wheeler Stephanie, DO, FACP CPT-47608 Ofc Vst, Est Level III 14:42:52 CDT Carolee Brown [facility] CPT-11560 Ofc Vst, Est Level IV 10:38:00 CDT Caroleebatsheva Wheeler Stephanie, DO, FACP CPT-49245 Ofc Vst, Est Level IV 11:51:26 CDT Caroleebatsheva Wheeler Stephanie, DO, FACP CPT-02689 Ofc Vst, Est Level V 11:15:19 CDT Carolee Wheeler Stephanie, DO, FACP CPT-81223 Ofc Vst, Est Level IV 11:14:51 CDT Carolee Luz Marina Wheeler Stephanie, DO, FACP CPT-97526 Ofc Vst, Est Level IV 10:51:44 CDT Caroleebatsheva Wheeler Brown, DO, FACP CPT-31188 Ofc Vst, Est Level IV 10:18:20 CDT Carolee Luz Marina Wheeler Brown, DO, FACP CPT-60956 Ofc Vst, Est Level IV 11:25:16 CDT Caroleebatsheva Wheeler Brown, DO, FACP CPT-58331 Ofc Vst, Est Level V 10:51:26 CDT Carolee Luz Marina Wheeler Brown, DO, FACP CPT-26795 Ofc Vst, Est Level IV 15:18:28 AUDIOVISUAL LIBRARIAN Carolee Wheeler Brown, DO, FACP CPT-92209 Ofc Vst, Est Level IV 09:55:03 AUDIOVISUAL LIBRARIAN Caroleebatsheva Wheeler Brown, DO, FACP CPT-97794 Ofc Vst, Est Level IV 11:29:27 CDT Caroleebatsheva Wheeler Brown, DO, FACP CPT-94621 Ofc Vst, Est Level IV 11:56:00 CDT Carolee Wheeler Brown, DO, FACP CPT-40295 Ofc Vst, Est Level IV 15:25:37 CDT Caroleebatsheva Wheeler Brown, DO, FACP CPT-89951 Ofc Vst, Est Level III 16:06:39 CDT Caroleebatsheva Wheeler Brown, DO, FACP CPT-63607 Ofc Vst, Est Level IV 10:01:16 CDT Carolee Wheeler Brown, DO, FACP CPT-66437 Ofc Vst, Est Level IV 10:26:26 AUDIOVISUAL LIBRARIAN Carolee Wheeler Stephanie, DO, FACP CPT-27272 Ofc Vst, Est Level IV 14:59:16 CDT Carolee Luz Marina Brown, DO, FACP CPT-48823 Ofc Vst, Est Level III 10:51:23 CDT Carolee Luz Marina Stephanie Strongi S Stephanie, DO, FACP CPT-16473 Ofc Vst, Est Level II 11:14:55 CDT Carolee Luz Marinarashi Strongi Summer Brown, DO, FACP CPT-02057 Ofc Vst, Est Level III 10:01:34 CDT Carolee Luz Marina Stephanie Zarco S Stephanie, DO, FACP CPT-77386 Ofc Vst, Est Level IV 14:38:36 CDT Caroleebatsheva [facility] [place] CPT-90040 Ofc Vst, Est Level IV 15:38:00 CDT Caroleebatsheva Brown [facility] [place] CPT-99240 Ofc Vst, Est Level V 10:50:54 CDT Carolee Luz Marina Brown [facility] [place] CPT-44252 Ofc Vst, Est Level III 10:15:13 CDT Carolee Luz Marina Brown [facility] [place] CPT-97309 Ofc Vst, Est Level IV 09:36:45 CDT Carolee Luz Marina Brown [facility] [place] CPT-65657 Ofc Vst, Est Level IV 13:07:23 CDT Caroleebatsheva Brown [facility] [place] CPT-86167 Ofc Vst, Est Level IV 14:36:05 CDT Caroleebatsheva Brown [facility] [place] CPT-54206 Ofc Vst, Est Level III 14:53:52 CDT Carolee Brown [facility] [place] CPT-69806 Ofc Vst, New Level III 17:13:16 AUDIOVISUAL LIBRARIAN Carolee Brown [facility] [place] Procedures Code Procedure Name Date Entry Date Standard Description CPT-G0439 Medicare Annual Wellness Visit 20:41:18 CDT CPT-G8443 E-Prescribing Medication Sent 19:51:40 AUDIOVISUAL LIBRARIAN CPT-G8445 E-Prescribing Not sent due to no medication given 15:39: 28 CDT CPT-G0439 Medicare Annual Wellness Visit 15:39:28 CDT CPT-G8445 E-Prescribing Not sent due to no medication given 16:53: 45 AUDIOVISUAL LIBRARIAN CPT-G8445 E-Prescribing Not sent due to no medication given 13:12: 19 AUDIOVISUAL LIBRARIAN CPT-G8443 E-Prescribing Medication Sent 14:42:44 CDT CPT-G0438 Medicare Annual Wellness Visit Initial 11:23:44 CDT CPT-95557 Injection 10:15:13 CDT
--- OUTSIDE RECORDS SUMMARY | 2017-08-10 20:40 | XMS REPORT | Clinical Summary ---
Author Author User, MIS[facility] Organization [facility] [place] Address Unknown Phone Unavailable Allergies, Adverse Reactions, [...] % CREA apply BID TRIAMCINOLONE ACETONIDE (TOP) 89536182850 Active Carolee Brown ZOSTAVAX 00477 UNT/0.65ML SOLR 1 injection once to prevent Shingles ZOSTER VACCINE LIVE 99177753091 No Longer Active Caroleebatsheva Brown ATARAX 25 MG TAB 1 PO QHS HYDROXYZINE HCL No Longer Active Caroleebatsheva Brown PROAIR HFA 108 (90 BASE) MCG/ACT AERS 2 puff Q4 hrs prn wheezing ALBUTEROL SULFATE 60063038836 No Longer Active Caroleebatsheva Brown SYNTHROID 0.05 MG TAB 1 PO daily on empty stomach LEVOTHYROXINE SODIUM 26107409550 Active Akilah Ambrocio CLOBETASOL PROPIONATE 0.05 % CREA Apply to affected areas BID CLOBETASOL PROPIONATE 29059223549 No Longer Active Carolee Brown PREDNISONE 20 MG TAB 2 pills at once for 2 days then 1 pill daily for 5 days PREDNISONE 05965195061 No Longer Active Carolee Brown HYDROCODONE-ACETAMINOPHEN 10-325 MG TABS 1 PO Q4hrs prn pain 2011 HYDROCODONE-ACETAMINOPHEN 81877752792 No Longer Active Caroleebatsheva Brown CLEOCIN 300 MG CAPS 1 PO Q8hrs for 10 days CLINDAMYCIN HCL 88241055649 No Longer Active Caroleebatsheva Brown BACTRIM DS 800-160 MG TAB 1 PO BID TRIMETHOPRIM- SULFAMETHOXAZOLE 74702322714 No Longer Active Carolee Brown MOBIC 15 MG TABS 1 PO DAILY MELOXICAM 56998394166 Active Akilah Ambrocio DAYPRO 600 MG TABS 1 PO TID OXAPROZIN 78150119274 No Longer Active Carolee Brown MOBIC 15 MG TABS 1 po daily MELOXICAM 28772891931 No Longer Active Akilah Ambrocio DAYPRO 600 MG TAB 2 po daily OXAPROZIN 15496035918 No Longer Active Caroleebatsheva Brown CELEBREX 200 MG CAPS 1 po BID CELECOXIB 85466422138 No Longer Active Carolee Luz Marina Brown BACTRIM DS 800-160 MG TAB 1 PO BID TRIMETHOPRIM- SULFAMETHOXAZOLE 17516112130 No Longer Active Craolee Luz Marina Brown BACTRIM DS 800-160 MG TAB 1 PO BID TRIMETHOPRIM- SULFAMETHOXAZOLE 76938414223 No Longer Active Carolee Luz Marina Brown K-DUR 10 MEQ TAB CR 1 PO daily with Lasix PRN POTASSIUM CHLORIDE No Longer Active Carolee Luz Marina Brown LASIX 20 MG TAB 1 PO QD PRN FUROSEMIDE 55623304151 No Longer Active Carolee Luz Marina Brown FOSAMAX 70 MG TABS 1 PO Qwk ALENDRONATE SODIUM 69113925172 No Longer Active Carolee Luz Marina Brown BACTRIM DS 800-160 MG TAB 1 PO BID TRIMETHOPRIM- SULFAMETHOXAZOLE 78792578536 No Longer Active Carolee Luz Marina Brown SYNTHROID 0.025 MG TAB 1 PO daily on empty stomach LEVOTHYROXINE SODIUM 79896622853 No Longer Active Carolee Luz Marina Brown DICLOFENAC SODIUM 50 MG TBEC I PO TID DICLOFENAC SODIUM 88450237885 No Longer Active Carolee Luz Marina Brown XOPENEX CONCENTRATE 1.25 MG/0.5ML NEBU 1 Neb treatment QID prn LEVALBUTEROL HCL 94828231265 No Longer Active Carolee Luz Marina Brown SYMBICORT 160-4.5 MCG/ACT AERO 2 puffs BID BUDESONIDE -FORMOTEROL FUMARATE 75870534485 No Longer Active Carolee Luz Marina Brown SPIRIVA HANDIHALER 18 MCG CAPS 1 puff daily TIOTROPIUM BROMIDE MONOHYDRATE 98823673996 No Longer Active Carolee Luz Marina Brown SINGULAIR 10 MG TABS 1 PO QHS MONTELUKAST SODIUM 01023021954 No Longer Active Carolee Luz Marina Brown DICLOFENAC SODIUM 50 MG TBEC 1 PO TID DICLOFENAC SODIUM 18739306053 No Longer Active Carolee Luz Marina Brown DUONEB 0.5-2.5 (3) MG/3ML SOLN 1 tx QID PRN IPRATROPIUM- ALBUTEROL 97411821498 No Longer Active Carolee Luz Marina Brown ROBITUSSIN A-C 10-100 MG/5ML SYRUP 1 teaspoon PO Q 4-6 hr prn ROBITUSSIN A-C 10-100 MG/5ML SYRUP No Longer Active Carolee Luz Marina Brown BIAXIN 500 MG TAB 1 PO BID CLARITHROMYCIN 05061673922 No Longer Active Carolee Luz Marina Brown PREDNISONE 20 MG TABS 3 po for 3 days, then 2 po for 2 days, then 1 po for 3 days. PREDNISONE 98696737270 No Longer Active Carolee Luz Marina Brown CIPRO 250 MG TABS 1 PO BID CIPROFLOXACIN HCL 12344038979 No Longer Active Carolee Luz Marina Brown VOLTAREN-XR DA86L-YLU 1 PO daily DICLOFENAC SODIUM CW02F-XTY 26501149062 No Longer Active Carolee Luz Marina Brown LASIX 20 MG TAB 1 PO QD FUROSEMIDE 75254232816 No Longer Active Carolee Luz Marina Brown ADVAIR DISKUS 100-50 MCG/DOSE MISC 1 puff twice daily. Rinse mouth after use. FLUTICASONE-SALMETEROL 33576713296 No Longer Active Carolee Luz Marina Brown CLEOCIN 150 MG CAPS 1 PO daily after Bactrim completed until further notice. CLINDAMYCIN HCL 50165847540 No Longer Active Carolee Luz Marina Brown DAYPRO 600 MG TABS 2 PO daily OXAPROZIN 89742900117 No Longer Active Carolee Luz Marina Brown BACTRIM DS 800-160 MG TAB 1 PO BID TRIMETHOPRIM- SULFAMETHOXAZOLE 72475692931 No Longer Active Carolee Luz Marina Brown BACTRIM DS 800-160 MG TAB 1 PO BID TRIMETHOPRIM- SULFAMETHOXAZOLE 57816782261 No Longer Active Carolee Luz Marina Brown PREDNISONE 20 MG TAB 2 pills daily at once for 4 days, 1 once daily for 3 days PREDNISONE 46315316623 No Longer Active Carolee Luz Marina Brown LEVAQUIN 750 MG TABS 1 PO daily LEVOFLOXACIN 94456483767 No Longer Active Carolee Luz Marina Brown PREDNISONE 20 MG TAB 2 pills at once for 2 days then 1 pill daily for 2 days PREDNISONE 91521275672 No Longer Active Carolee Luz Marina Brown ROBITUSSIN A-C 10-100 MG/5ML SYRUP 1 teaspoon PO Q 4-6 hr prn ROBITUSSIN A-C 10-100 MG/5ML SYRUP 84036548452 No Longer Active Carolee Luz Marina Brown BIAXIN XL PAC 500 MG TB24 2 pills at same time daily for 7 days CLARITHROMYCIN 32443906570 No Longer Active Carolee Luz Marina Brown DAYPRO 600 MG TABS 2 PO QAM OXAPROZIN 00603938483 No Longer Active Carolee Luz Marina Brown ALBUTEROL 90 MCG/ACT AERS 2 puffs Q4-6hrs prn ALBUTEROL 89828662576 No Longer Active Carolee Luz Marina Brown ADVAIR DISKUS 250-50 MCG/DOSE MISC 1 Puff BID FLUTICASONE-SALMETEROL 24212493293 No Longer Active Carolee Luz Marina Brown BONIVA 150 MG TABS 1 PO Q month IBANDRONATE SODIUM 04767808481 No Longer Active Carolee Luz Marina Brown CELEBREX 200 MG CAPS 1 po BID CELECOXIB 04072100547 No Longer Active Carolee Luz Marina Brown BACTRIM DS 800-160 MG TAB 1 PO BID TRIMETHOPRIM- SULFAMETHOXAZOLE 21593542525 No Longer Active Carolee Luz Marina Brown K-DUR 10 MEQ TAB CR 1 PO BID with Lasix POTASSIUM CHLORIDE 19536399670 No Longer Active Carolee Luz Marina Brown LASIX 20 MG TAB 1 PO BID for swelling FUROSEMIDE 89013185801 No Longer Active Caroleebatsheva Brown LOVENOX 40 MG/0.4ML SOLN 1 injection prior to flight to prevent blood clot ENOXAPARIN SODIUM 76877923071 No Longer Active Carolee Luz Marina Brown PREDNISONE 20 MG TAB 3 PO daily for 3 days, 2 PO daily for 3 days, 1 PO daily for 2 days PREDNISONE 71677059193 No Longer Active Carolee Luz Marina Brown LEVAQUIN 500 MG TAB 1 PO QD for 7 Days LEVOFLOXACIN 45030182233 No Longer Active Carolee Brown ACTONEL WITH CALCIUM 35-1250 MG TABS 1 PO weekly RISEDRONATE-CALCIUM CARBONATE 16524141332 No Longer Active Caroleebatsheva Brown BONIVA 150 MG TABS 1 PO Q month as directed IBANDRONATE SODIUM 18584345450 No Longer Active Carolee Luz Marina Brown ZITHROMAX Z-JOE 250 MG TABS as directed AZITHROMYCIN 56913739101 No Longer Active Megan Siegrist MEDROL (JOE) 4 MG TABS as directed METHYLPREDNISOLONE 54018645549 No Longer Active Megan Siegrist ZITHROMAX Z-JOE 250 MG TABS as directed AZITHROMYCIN 08303590399 No Longer Active Carolee Luz Marina Brown ALBUTEROL 90 MCG/ACT AERS 2 puffs Q4-6hrs prn ALBUTEROL 88240410509 No Longer Active Carolee Luz Marina Murrayner ALUPENT 0.65 MG/ACT AERP as needed METAPROTERENOL SULFATE 07738384900 No Longer Active Carolee Luz Marina Brown MEDROL (JOE) 4 MG TABS use as directed METHYLPREDNISOLONE 04240783875 No Longer Active Carolee Luz Marina Murrayner MULTIVITAMINS TABS 1 po daily MULTIPLE VITAMIN 89631683808 No Longer Active Carolee Luz Marina Murrayner CALTRATE 600 PLUS-VIT D 600-200 MG-IU TABS 1 PO TID CALCIUM-VITAMIN D 58355073634 Active Carolee Luz Marina Murrayner ADVIL 200 MG CAPS prn IBUPROFEN 16658342578 No Longer Active Carolee Luz Marina uMrrayner ZITHROMAX Z-JOE 250 MG TABS use as directed AZITHROMYCIN 38183853452 No Longer Active Carolee Luz Marina Murrayner CALCIUM 500 MG TABS 1 po tID CALCIUM 71015331589 No Longer Active Carolee Luz Marina Murrayner BEXTRA 20 MG TABS one po daily VALDECOXIB 80244005848 No Longer Active Carolee Luz Marina Stephanie [...] mg/dL Encounters Code Encounter Date Provider Facility CPT-61550 Ofc Vst, Est Level III 13:18:57 CDT Carolee Brown DO, FACP CPT-07267 Ofc Vst, Est Level III 19:51:40 FIELD LABORATORY OPERATOR Carolee Brown DO, FACP CPT-34876 Ofc Vst, Est Level III 16:53:45 FIELD LABORATORY OPERATOR Carolee Brown DO, FACP CPT-50332 Ofc Vst, Est Level III 13:12:19 FIELD LABORATORY OPERATOR Carolee Wheeler Brown, DO, FACP CPT-28097 Ofc Vst, Est Level III 14:42:44 CDT Caroleebatsheva Wheeler Brown, DO, FACP CPT-23027 Ofc Vst, Est Level III 14:09:17 CDT Caroleebatsheva Wheeler Stephanie, DO, FACP CPT-84725 Ofc Vst, Est Level III 11:30:16 FIELD LABORATORY OPERATOR Carolee Wheeler Stephanie, DO, FACP CPT-70762 Ofc Vst, Est Level III 11:32:30 FIELD LABORATORY OPERATOR Carolee Wheeler Stephanie, DO, FACP CPT-32249 Ofc Vst, Est Level IV 10:59:40 CDT Caroleebatsheva Wheeler Stepahnie, DO, FACP CPT-67918 Ofc Vst, Est Level III 16:44:16 CDT Caroleebatsheva Wheeler Stephanie, DO, FACP CPT-14554 Ofc Vst, Est Level IV 11:31:54 CDT Caroleebatsheva Wheeler Stephanie, DO, FACP CPT-01000 Ofc Vst, Est Level III 14:42:52 CDT Carolee Brown [facility] CPT-24351 Ofc Vst, Est Level IV 10:38:00 CDT Caroleebatsheva Wheeler Stephanie, DO, FACP CPT-91812 Ofc Vst, Est Level IV 11:51:26 CDT Caroleebatsheva Wheeler Stephanie, DO, FACP CPT-79154 Ofc Vst, Est Level V 11:15:19 CDT Carolee Wheeler Stephanie, DO, FACP CPT-02237 Ofc Vst, Est Level IV 11:14:51 CDT Carolee Luz Marina Wheeler Stephanie, DO, FACP CPT-76502 Ofc Vst, Est Level IV 10:51:44 CDT Caroleebatsheva Wheeler Brown, DO, FACP CPT-84553 Ofc Vst, Est Level IV 10:18:20 CDT Carolee Luz Marina Wheeler Brown, DO, FACP CPT-48189 Ofc Vst, Est Level IV 11:25:16 CDT Caroleebatsheva Wheeler Brown, DO, FACP CPT-56188 Ofc Vst, Est Level V 10:51:26 CDT Carolee Luz Marina Wheeler Brown, DO, FACP CPT-99090 Ofc Vst, Est Level IV 15:18:28 FIELD LABORATORY OPERATOR Carolee Wheeler Brown, DO, FACP CPT-23486 Ofc Vst, Est Level IV 09:55:03 FIELD LABORATORY OPERATOR Caroleebatsheva Wheeler Brown, DO, FACP CPT-99079 Ofc Vst, Est Level IV 11:29:27 CDT Caroleebatsheva Wheeler Brown, DO, FACP CPT-62165 Ofc Vst, Est Level IV 11:56:00 CDT Carolee Wheeler Brown, DO, FACP CPT-23058 Ofc Vst, Est Level IV 15:25:37 CDT Caroleebatsheva Wheeler Brown, DO, FACP CPT-78342 Ofc Vst, Est Level III 16:06:39 CDT Caroleebatsheva Wheeler Brown, DO, FACP CPT-28618 Ofc Vst, Est Level IV 10:01:16 CDT Carolee Wheeler Brown, DO, FACP CPT-31964 Ofc Vst, Est Level IV 10:26:26 FIELD LABORATORY OPERATOR Carolee Wheeler Stephanie, DO, FACP CPT-99457 Ofc Vst, Est Level IV 14:59:16 CDT Carolee Luz aMrina Brown, DO, FACP CPT-37259 Ofc Vst, Est Level III 10:51:23 CDT Carolee Luz Marina Stephanie Strongi S Stephanie, DO, FACP CPT-30327 Ofc Vst, Est Level II 11:14:55 CDT Carolee Luz Marinarashi Strongi Summer Brown, DO, FACP CPT-71106 Ofc Vst, Est Level III 10:01:34 CDT Carolee Luz Marina Stephanie Zarco S Stephanie, DO, FACP CPT-67944 Ofc Vst, Est Level IV 14:38:36 CDT Caroleebatsheva [facility] [place] CPT-88367 Ofc Vst, Est Level IV 15:38:00 CDT Caroleebatsheva Brown [facility] [place] CPT-97857 Ofc Vst, Est Level V 10:50:54 CDT Carolee Luz Marina Brown [facility] [place] CPT-26030 Ofc Vst, Est Level III 10:15:13 CDT Carolee Luz Marina Brown [facility] [place] CPT-11024 Ofc Vst, Est Level IV 09:36:45 CDT Carolee Luz Marina Brown [facility] [place] CPT-16694 Ofc Vst, Est Level IV 13:07:23 CDT Caroleebatsheva Brown [facility] [place] CPT-61889 Ofc Vst, Est Level IV 14:36:05 CDT Caroleebatsheva Brown [facility] [place] CPT-88399 Ofc Vst, Est Level III 14:53:52 CDT Carolee Brown [facility] [place] CPT-34174 Ofc Vst, New Level III 17:13:16 FIELD LABORATORY OPERATOR Carolee Brown [facility] [place] Procedures Code Procedure Name Date Entry Date Standard Description CPT-G0439 Medicare Annual Wellness Visit 20:41:18 CDT CPT-G8443 E-Prescribing Medication Sent 19:51:40 FIELD LABORATORY OPERATOR CPT-G8445 E-Prescribing Not sent due to no medication given 15:39: 28 CDT CPT-G0439 Medicare Annual Wellness Visit 15:39:28 CDT CPT-G8445 E-Prescribing Not sent due to no medication given 16:53: 45 FIELD LABORATORY OPERATOR CPT-G8445 E-Prescribing Not sent due to no medication given 13:12: 19 FIELD LABORATORY OPERATOR CPT-G8443 E-Prescribing Medication Sent 14:42:44 CDT CPT-G0438 Medicare Annual Wellness Visit Initial 11:23:44 CDT CPT-57056 Injection 10:15:13 CDT
--- OUTSIDE RECORDS SUMMARY | 2017-08-10 20:41 | XMS REPORT | Clinical Summary ---
Author Author User, MISBAH Organization [facility] [place] Address Unknown Phone Unavailable Allergies, Adverse Reactions, [...] % CREA apply BID TRIAMCINOLONE ACETONIDE (TOP) 71663455143 Active Carolee Brown ZOSTAVAX 34262 UNT/0.65ML SOLR 1 injection once to prevent Shingles ZOSTER VACCINE LIVE 16540365840 No Longer Active Caroleebatsheva Brown ATARAX 25 MG TAB 1 PO QHS HYDROXYZINE HCL No Longer Active Caroleebatsheva Brown PROAIR HFA 108 (90 BASE) MCG/ACT AERS 2 puff Q4 hrs prn wheezing ALBUTEROL SULFATE 14233430985 No Longer Active Caroleebatsheva Brown SYNTHROID 0.05 MG TAB 1 PO daily on empty stomach LEVOTHYROXINE SODIUM 72207768657 Active Akilah Ambrocio CLOBETASOL PROPIONATE 0.05 % CREA Apply to affected areas BID CLOBETASOL PROPIONATE 47287093510 No Longer Active Carolee Brown PREDNISONE 20 MG TAB 2 pills at once for 2 days then 1 pill daily for 5 days PREDNISONE 47388270803 No Longer Active Carolee rBown HYDROCODONE-ACETAMINOPHEN 10-325 MG TABS 1 PO Q4hrs prn pain 2011 HYDROCODONE-ACETAMINOPHEN 61083550179 No Longer Active Caroleebatsheva Brown CLEOCIN 300 MG CAPS 1 PO Q8hrs for 10 days CLINDAMYCIN HCL 68977336029 No Longer Active Caroleebatsheva Brown BACTRIM DS 800-160 MG TAB 1 PO BID TRIMETHOPRIM- SULFAMETHOXAZOLE 11833602959 No Longer Active Carolee Brown MOBIC 15 MG TABS 1 PO DAILY MELOXICAM 57627329440 Active Akilah Ambrocio DAYPRO 600 MG TABS 1 PO TID OXAPROZIN 38927596081 No Longer Active Carolee Brown MOBIC 15 MG TABS 1 po daily MELOXICAM 35489796898 No Longer Active Akilah Ambrocio DAYPRO 600 MG TAB 2 po daily OXAPROZIN 19709308933 No Longer Active Caroleebatsheva Brown CELEBREX 200 MG CAPS 1 po BID CELECOXIB 21779515265 No Longer Active Carolee Luz Marina Brown BACTRIM DS 800-160 MG TAB 1 PO BID TRIMETHOPRIM- SULFAMETHOXAZOLE 53234301653 No Longer Active Carolee Luz Marina Brown BACTRIM DS 800-160 MG TAB 1 PO BID TRIMETHOPRIM- SULFAMETHOXAZOLE 04768188908 No Longer Active Carolee Luz Marina Brown K-DUR 10 MEQ TAB CR 1 PO daily with Lasix PRN POTASSIUM CHLORIDE No Longer Active Carolee Luz Marina Brown LASIX 20 MG TAB 1 PO QD PRN FUROSEMIDE 56016755013 No Longer Active Carolee Luz Marina Brown FOSAMAX 70 MG TABS 1 PO Qwk ALENDRONATE SODIUM 31510926693 No Longer Active Carolee Luz Marina Brown BACTRIM DS 800-160 MG TAB 1 PO BID TRIMETHOPRIM- SULFAMETHOXAZOLE 82610283430 No Longer Active Carolee Luz Marina Brown SYNTHROID 0.025 MG TAB 1 PO daily on empty stomach LEVOTHYROXINE SODIUM 40705534965 No Longer Active Carolee Luz Marina Brown DICLOFENAC SODIUM 50 MG TBEC I PO TID DICLOFENAC SODIUM 18161985684 No Longer Active Carolee Luz Marina Brown XOPENEX CONCENTRATE 1.25 MG/0.5ML NEBU 1 Neb treatment QID prn LEVALBUTEROL HCL 78784189485 No Longer Active Carolee Luz Marina Brown SYMBICORT 160-4.5 MCG/ACT AERO 2 puffs BID BUDESONIDE -FORMOTEROL FUMARATE 76140202411 No Longer Active Carolee Luz Marina Brown SPIRIVA HANDIHALER 18 MCG CAPS 1 puff daily TIOTROPIUM BROMIDE MONOHYDRATE 15147415991 No Longer Active Carolee Luz Marina Brown SINGULAIR 10 MG TABS 1 PO QHS MONTELUKAST SODIUM 72948867878 No Longer Active Carolee Luz Marina Brown DICLOFENAC SODIUM 50 MG TBEC 1 PO TID DICLOFENAC SODIUM 89830364383 No Longer Active Carolee Luz Marina Brown DUONEB 0.5-2.5 (3) MG/3ML SOLN 1 tx QID PRN IPRATROPIUM- ALBUTEROL 64379799742 No Longer Active Carolee Luz Marina Brown ROBITUSSIN A-C 10-100 MG/5ML SYRUP 1 teaspoon PO Q 4-6 hr prn ROBITUSSIN A-C 10-100 MG/5ML SYRUP No Longer Active Carolee Luz Marina Brown BIAXIN 500 MG TAB 1 PO BID CLARITHROMYCIN 11702540879 No Longer Active Carolee Luz Marina Brown PREDNISONE 20 MG TABS 3 po for 3 days, then 2 po for 2 days, then 1 po for 3 days. PREDNISONE 70500711028 No Longer Active Carolee Luz Marina Brown CIPRO 250 MG TABS 1 PO BID CIPROFLOXACIN HCL 05776851707 No Longer Active Carolee Luz Marina Brown VOLTAREN-XR SO50E-RXM 1 PO daily DICLOFENAC SODIUM SI11T-DGF 20100458888 No Longer Active Carolee Luz Marina Brown LASIX 20 MG TAB 1 PO QD FUROSEMIDE 63714752331 No Longer Active Carolee Luz Marina Brown ADVAIR DISKUS 100-50 MCG/DOSE MISC 1 puff twice daily. Rinse mouth after use. FLUTICASONE-SALMETEROL 50235586321 No Longer Active Carolee Luz Marina Brown CLEOCIN 150 MG CAPS 1 PO daily after Bactrim completed until further notice. CLINDAMYCIN HCL 38801603376 No Longer Active Carolee Luz Marina Brown DAYPRO 600 MG TABS 2 PO daily OXAPROZIN 97260572146 No Longer Active Carolee Luz Marina Brown BACTRIM DS 800-160 MG TAB 1 PO BID TRIMETHOPRIM- SULFAMETHOXAZOLE 54500698277 No Longer Active Carolee Luz Marina Brown BACTRIM DS 800-160 MG TAB 1 PO BID TRIMETHOPRIM- SULFAMETHOXAZOLE 28202015497 No Longer Active Carolee Luz Marina Brown PREDNISONE 20 MG TAB 2 pills daily at once for 4 days, 1 once daily for 3 days PREDNISONE 76098241793 No Longer Active Carolee Luz Marina Brown LEVAQUIN 750 MG TABS 1 PO daily LEVOFLOXACIN 64283076302 No Longer Active Carolee Luz Marina Brown PREDNISONE 20 MG TAB 2 pills at once for 2 days then 1 pill daily for 2 days PREDNISONE 32641448585 No Longer Active Carolee Luz Marina rBown ROBITUSSIN A-C 10-100 MG/5ML SYRUP 1 teaspoon PO Q 4-6 hr prn ROBITUSSIN A-C 10-100 MG/5ML SYRUP 27573178315 No Longer Active Carolee Luz Marina Brown BIAXIN XL PAC 500 MG TB24 2 pills at same time daily for 7 days CLARITHROMYCIN 77300302436 No Longer Active Carolee Luz Marina Brown DAYPRO 600 MG TABS 2 PO QAM OXAPROZIN 75622942650 No Longer Active Carolee Luz Marina Brown ALBUTEROL 90 MCG/ACT AERS 2 puffs Q4-6hrs prn ALBUTEROL 07974870329 No Longer Active Carolee Luz Marina Brown ADVAIR DISKUS 250-50 MCG/DOSE MISC 1 Puff BID FLUTICASONE-SALMETEROL 75615767240 No Longer Active Carolee Luz Marina Brown BONIVA 150 MG TABS 1 PO Q month IBANDRONATE SODIUM 82973337758 No Longer Active Carolee Luz Marina Brown CELEBREX 200 MG CAPS 1 po BID CELECOXIB 46500343827 No Longer Active Carolee Luz Marina Brown BACTRIM DS 800-160 MG TAB 1 PO BID TRIMETHOPRIM- SULFAMETHOXAZOLE 55131186899 No Longer Active Carolee Luz Marina Brown K-DUR 10 MEQ TAB CR 1 PO BID with Lasix POTASSIUM CHLORIDE 50714545619 No Longer Active Carolee Luz Marina Brown LASIX 20 MG TAB 1 PO BID for swelling FUROSEMIDE 88975952934 No Longer Active Caroleebatsheva Brown LOVENOX 40 MG/0.4ML SOLN 1 injection prior to flight to prevent blood clot ENOXAPARIN SODIUM 01290422097 No Longer Active Carolee Luz Marina Brown PREDNISONE 20 MG TAB 3 PO daily for 3 days, 2 PO daily for 3 days, 1 PO daily for 2 days PREDNISONE 97223528784 No Longer Active Carolee Luz Marina Brown LEVAQUIN 500 MG TAB 1 PO QD for 7 Days LEVOFLOXACIN 74241904241 No Longer Active Carolee Brown ACTONEL WITH CALCIUM 35-1250 MG TABS 1 PO weekly RISEDRONATE-CALCIUM CARBONATE 17217670796 No Longer Active Caroleebatsheva Brown BONIVA 150 MG TABS 1 PO Q month as directed IBANDRONATE SODIUM 20699433512 No Longer Active Carolee Luz Marina Brown ZITHROMAX Z-JOE 250 MG TABS as directed AZITHROMYCIN 56664625019 No Longer Active Megan Siegrist MEDROL (JOE) 4 MG TABS as directed METHYLPREDNISOLONE 59971027133 No Longer Active Megan Siegrist ZITHROMAX Z-JOE 250 MG TABS as directed AZITHROMYCIN 77699132264 No Longer Active Carolee Luz Marina Brown ALBUTEROL 90 MCG/ACT AERS 2 puffs Q4-6hrs prn ALBUTEROL 05634222347 No Longer Active Carolee Luz Marina Murrayner ALUPENT 0.65 MG/ACT AERP as needed METAPROTERENOL SULFATE 58844490007 No Longer Active Carolee Luz Marina Brown MEDROL (JOE) 4 MG TABS use as directed METHYLPREDNISOLONE 90920078991 No Longer Active Carolee Luz Marina Murrayner MULTIVITAMINS TABS 1 po daily MULTIPLE VITAMIN 32951960537 No Longer Active Carolee Luz Marina Murrayner CALTRATE 600 PLUS-VIT D 600-200 MG-IU TABS 1 PO TID CALCIUM-VITAMIN D 85006608838 Active Carolee Luz Marina Murrayner ADVIL 200 MG CAPS prn IBUPROFEN 14679115566 No Longer Active Carolee Luz Marina Murrayner ZITHROMAX Z-JOE 250 MG TABS use as directed AZITHROMYCIN 94630748486 No Longer Active Carolee Luz Marina Murrayner CALCIUM 500 MG TABS 1 po tID CALCIUM 14101205789 No Longer Active Carolee Luz Marina Murrayner BEXTRA 20 MG TABS one po daily VALDECOXIB 97918405802 No Longer Active Carolee Luz Marina Stephanie [...] mg/dL Encounters Code Encounter Date Provider Facility CPT-39391 Ofc Vst, Est Level III 13:18:57 CDT Carolee Brown DO, FACP CPT-58740 Ofc Vst, Est Level III 19:51:40 SENIOR OPERATOR Carolee Brown DO, FACP CPT-50975 Ofc Vst, Est Level III 16:53:45 SENIOR OPERATOR Carolee Brown DO, FACP CPT-06900 Ofc Vst, Est Level III 13:12:19 SENIOR OPERATOR Carolee Wheeler Brown, DO, FACP CPT-26636 Ofc Vst, Est Level III 14:42:44 CDT Caroleebatsheva Wheeler Brown, DO, FACP CPT-96318 Ofc Vst, Est Level III 14:09:17 CDT Caroleebatsheva Wheeler Stephanie, DO, FACP CPT-18708 Ofc Vst, Est Level III 11:30:16 SENIOR OPERATOR Carolee Wheeler Stephanie, DO, FACP CPT-67327 Ofc Vst, Est Level III 11:32:30 SENIOR OPERATOR Carolee Wheeler Stephanie, DO, FACP CPT-33880 Ofc Vst, Est Level IV 10:59:40 CDT Caroleebatsheva Wheeler Stephanie, DO, FACP CPT-13908 Ofc Vst, Est Level III 16:44:16 CDT Caroleebatsheva Wheeler Stephanie, DO, FACP CPT-26436 Ofc Vst, Est Level IV 11:31:54 CDT Caroleebatsheva Wheeler Stephanie, DO, FACP CPT-02466 Ofc Vst, Est Level III 14:42:52 CDT Carolee Brown [facility] CPT-48864 Ofc Vst, Est Level IV 10:38:00 CDT Caroleebatsheva Wheeler Stephanie, DO, FACP CPT-72917 Ofc Vst, Est Level IV 11:51:26 CDT Caroleebatsheva Wheeler Stephanie, DO, FACP CPT-77120 Ofc Vst, Est Level V 11:15:19 CDT Carolee Wheeler Stephanie, DO, FACP CPT-22973 Ofc Vst, Est Level IV 11:14:51 CDT Carolee Luz Marina Wheeler Stephanie, DO, FACP CPT-56503 Ofc Vst, Est Level IV 10:51:44 CDT Caroleebatsheva Wheeler Brown, DO, FACP CPT-86441 Ofc Vst, Est Level IV 10:18:20 CDT Carolee Luz Marina Wheeler Brown, DO, FACP CPT-09992 Ofc Vst, Est Level IV 11:25:16 CDT Caroleebatsheva Wheeler Brown, DO, FACP CPT-91924 Ofc Vst, Est Level V 10:51:26 CDT Carolee Luz Marina Wheeler Brown, DO, FACP CPT-84937 Ofc Vst, Est Level IV 15:18:28 SENIOR OPERATOR Carolee Wheeler Brown, DO, FACP CPT-16934 Ofc Vst, Est Level IV 09:55:03 SENIOR OPERATOR Caroleebatsheva Wheeler Brown, DO, FACP CPT-45995 Ofc Vst, Est Level IV 11:29:27 CDT Caroleebatsheva Wheeler Brown, DO, FACP CPT-10606 Ofc Vst, Est Level IV 11:56:00 CDT Carolee Wheeler Brown, DO, FACP CPT-80331 Ofc Vst, Est Level IV 15:25:37 CDT Caroleebatsheva Wheeler Brown, DO, FACP CPT-17777 Ofc Vst, Est Level III 16:06:39 CDT Caroleebatsheva Wheeler Brown, DO, FACP CPT-36195 Ofc Vst, Est Level IV 10:01:16 CDT Carolee Wheeler Brown, DO, FACP CPT-03419 Ofc Vst, Est Level IV 10:26:26 SENIOR OPERATOR Carolee Wheeler Stephanie, DO, FACP CPT-28441 Ofc Vst, Est Level IV 14:59:16 CDT Carolee Luz Marina Brown, DO, FACP CPT-98663 Ofc Vst, Est Level III 10:51:23 CDT Carolee Luz Marina Stephanie Strongi S Stephanie, DO, FACP CPT-65931 Ofc Vst, Est Level II 11:14:55 CDT Carolee Luz Marinarashi Strongi Summer Brown, DO, FACP CPT-19404 Ofc Vst, Est Level III 10:01:34 CDT Carolee Luz Marina Stephanie Zarco S Stephanie, DO, FACP CPT-36534 Ofc Vst, Est Level IV 14:38:36 CDT Caroleebatsheva [facility] [place] CPT-91959 Ofc Vst, Est Level IV 15:38:00 CDT Caroleebatsheva Brown [facility] [place] CPT-18115 Ofc Vst, Est Level V 10:50:54 CDT Carolee Luz Marina Brown [facility] [place] CPT-42601 Ofc Vst, Est Level III 10:15:13 CDT Carolee Luz Marina Brown [facility] [place] CPT-52623 Ofc Vst, Est Level IV 09:36:45 CDT Carolee Luz Marina Brown [facility] [place] CPT-79264 Ofc Vst, Est Level IV 13:07:23 CDT Caroleebatsheva Brown [facility] [place] CPT-94803 Ofc Vst, Est Level IV 14:36:05 CDT Caroleebatsheva Brown [facility] [place] CPT-64264 Ofc Vst, Est Level III 14:53:52 CDT Carolee Brown [facility] [place] CPT-97004 Ofc Vst, New Level III 17:13:16 SENIOR OPERATOR Carolee Brown [facility] [place] Procedures Code Procedure Name Date Entry Date Standard Description CPT-G0439 Medicare Annual Wellness Visit 20:41:18 CDT CPT-G8443 E-Prescribing Medication Sent 19:51:40 SENIOR OPERATOR CPT-G8445 E-Prescribing Not sent due to no medication given 15:39: 28 CDT CPT-G0439 Medicare Annual Wellness Visit 15:39:28 CDT CPT-G8445 E-Prescribing Not sent due to no medication given 16:53: 45 SENIOR OPERATOR CPT-G8445 E-Prescribing Not sent due to no medication given 13:12: 19 SENIOR OPERATOR CPT-G8443 E-Prescribing Medication Sent 14:42:44 CDT CPT-G0438 Medicare Annual Wellness Visit Initial 11:23:44 CDT CPT-24989 Injection 10:15:13 CDT
--- OUTSIDE RECORDS SUMMARY | 2017-08-10 20:42 | XMS REPORT | Clinical Summary ---
Author Author User, MISBAH Organization [facility] Physician [place] Address Unknown Phone Unavailable Allergies, Adverse Reactions, [...] % CREA apply BID TRIAMCINOLONE ACETONIDE (TOP) 31977335635 Active Carolee Brown ZOSTAVAX 55959 UNT/0.65ML SOLR 1 injection once to prevent Shingles ZOSTER VACCINE LIVE 84215671803 No Longer Active Caroleebatsheva Brown ATARAX 25 MG TAB 1 PO QHS HYDROXYZINE HCL No Longer Active Caroleebatsheva Brown PROAIR HFA 108 (90 BASE) MCG/ACT AERS 2 puff Q4 hrs prn wheezing ALBUTEROL SULFATE 76067352174 No Longer Active Caroleebatsheva Brown SYNTHROID 0.05 MG TAB 1 PO daily on empty stomach LEVOTHYROXINE SODIUM 11981845601 Active Akilah Ambrocio CLOBETASOL PROPIONATE 0.05 % CREA Apply to affected areas BID CLOBETASOL PROPIONATE 87599283298 No Longer Active Carolee Brown PREDNISONE 20 MG TAB 2 pills at once for 2 days then 1 pill daily for 5 days PREDNISONE 14585143236 No Longer Active Carolee Brown HYDROCODONE-ACETAMINOPHEN 10-325 MG TABS 1 PO Q4hrs prn pain 2011 HYDROCODONE-ACETAMINOPHEN [id number] No Longer Active Caroleebatsheva Brown CLEOCIN 300 MG CAPS 1 PO Q8hrs for 10 days CLINDAMYCIN HCL 22005543885 No Longer Active Caroleebatsheva Brown BACTRIM DS 800-160 MG TAB 1 PO BID TRIMETHOPRIM- SULFAMETHOXAZOLE 87376606336 No Longer Active aCrolee Brown MOBIC 15 MG TABS 1 PO DAILY MELOXICAM 42327454515 Active Akilah Ambrocio DAYPRO 600 MG TABS 1 PO TID OXAPROZIN 19932725707 No Longer Active Carolee Brown MOBIC 15 MG TABS 1 po daily MELOXICAM 82585065173 No Longer Active Akilah Ambrocio DAYPRO 600 MG TAB 2 po daily OXAPROZIN 30770696328 No Longer Active Caroleebatsheva Brown CELEBREX 200 MG CAPS 1 po BID CELECOXIB 67360454185 No Longer Active Carolee Luz Marina Brown BACTRIM DS 800-160 MG TAB 1 PO BID TRIMETHOPRIM- SULFAMETHOXAZOLE 97949613348 No Longer Active Carolee Luz Marina Brown BACTRIM DS 800-160 MG TAB 1 PO BID TRIMETHOPRIM- SULFAMETHOXAZOLE 91344336317 No Longer Active Carolee Luz Marina Brown K-DUR 10 MEQ TAB CR 1 PO daily with Lasix PRN POTASSIUM CHLORIDE No Longer Active Carolee Luz Marina Brown LASIX 20 MG TAB 1 PO QD PRN FUROSEMIDE 17525767753 No Longer Active Carolee Luz Marina Brown FOSAMAX 70 MG TABS 1 PO Qwk ALENDRONATE SODIUM 86396858775 No Longer Active Carolee Luz Marina Brown BACTRIM DS 800-160 MG TAB 1 PO BID TRIMETHOPRIM- SULFAMETHOXAZOLE 28628744390 No Longer Active Carolee Luz Marina Brown SYNTHROID 0.025 MG TAB 1 PO daily on empty stomach LEVOTHYROXINE SODIUM 33215169063 No Longer Active Carolee Luz Marina Brown DICLOFENAC SODIUM 50 MG TBEC I PO TID DICLOFENAC SODIUM 64855198596 No Longer Active Carolee Luz Marina Brown XOPENEX CONCENTRATE 1.25 MG/0.5ML NEBU 1 Neb treatment QID prn LEVALBUTEROL HCL 07784908806 No Longer Active Carolee Luz Marina Brown SYMBICORT 160-4.5 MCG/ACT AERO 2 puffs BID BUDESONIDE -FORMOTEROL FUMARATE 95927455700 No Longer Active Carolee Luz Marina Brown SPIRIVA HANDIHALER 18 MCG CAPS 1 puff daily TIOTROPIUM BROMIDE MONOHYDRATE 84044153182 No Longer Active Carolee Luz Marina Brown SINGULAIR 10 MG TABS 1 PO QHS MONTELUKAST SODIUM 91939497419 No Longer Active Carolee Luz Marina Brown DICLOFENAC SODIUM 50 MG TBEC 1 PO TID DICLOFENAC SODIUM 39636380209 No Longer Active Carolee Luz Marina Brown DUONEB 0.5-2.5 (3) MG/3ML SOLN 1 tx QID PRN IPRATROPIUM- ALBUTEROL 56943542407 No Longer Active Carolee Luz Marina Brown ROBITUSSIN A-C 10-100 MG/5ML SYRUP 1 teaspoon PO Q 4-6 hr prn ROBITUSSIN A-C 10-100 MG/5ML SYRUP No Longer Active Carolee Luz Marina Brown BIAXIN 500 MG TAB 1 PO BID CLARITHROMYCIN 58651492830 No Longer Active Carolee Luz Marina Brown PREDNISONE 20 MG TABS 3 po for 3 days, then 2 po for 2 days, then 1 po for 3 days. PREDNISONE 65502968762 No Longer Active Carolee Luz Marina Brown CIPRO 250 MG TABS 1 PO BID CIPROFLOXACIN HCL 47966894017 No Longer Active Carolee Luz Marina Brown VOLTAREN-XR TX11U-NUI 1 PO daily DICLOFENAC SODIUM [id number]-NFL 58509807997 No Longer Active Carolee Luz Marina Brown LASIX 20 MG TAB 1 PO QD FUROSEMIDE 28284595835 No Longer Active Carolee Luz Marina Brown ADVAIR DISKUS 100-50 MCG/DOSE MISC 1 puff twice daily. Rinse mouth after use. FLUTICASONE-SALMETEROL 33591803674 No Longer Active Carolee Luz Marina Brown CLEOCIN 150 MG CAPS 1 PO daily after Bactrim completed until further notice. CLINDAMYCIN HCL 66379646095 No Longer Active Carolee Luz Marina Brown DAYPRO 600 MG TABS 2 PO daily OXAPROZIN 93614083405 No Longer Active Carolee Luz Marina Brown BACTRIM DS 800-160 MG TAB 1 PO BID TRIMETHOPRIM- SULFAMETHOXAZOLE 60700884306 No Longer Active Carolee Luz Marina Brown BACTRIM DS 800-160 MG TAB 1 PO BID TRIMETHOPRIM- SULFAMETHOXAZOLE 48257992187 No Longer Active Carolee Luz Marina Brown PREDNISONE 20 MG TAB 2 pills daily at once for 4 days, 1 once daily for 3 days PREDNISONE 81657255548 No Longer Active Carolee Luz Marina Brown LEVAQUIN 750 MG TABS 1 PO daily LEVOFLOXACIN 98684687099 No Longer Active Carolee Luz Marina Brown PREDNISONE 20 MG TAB 2 pills at once for 2 days then 1 pill daily for 2 days PREDNISONE 88728987700 No Longer Active Carolee Luz Marina Brown ROBITUSSIN A-C 10-100 MG/5ML SYRUP 1 teaspoon PO Q 4-6 hr prn ROBITUSSIN A-C 10-100 MG/5ML SYRUP 38801760346 No Longer Active Carolee Luz Marina Brown BIAXIN XL PAC 500 MG TB24 2 pills at same time daily for 7 days CLARITHROMYCIN 37922186939 No Longer Active Carolee Luz Marina Brown DAYPRO 600 MG TABS 2 PO QAM OXAPROZIN 62841275748 No Longer Active Carolee Luz Marina Brown ALBUTEROL 90 MCG/ACT AERS 2 puffs Q4-6hrs prn ALBUTEROL 93345489240 No Longer Active Carolee Luz Marina Brown ADVAIR DISKUS 250-50 MCG/DOSE MISC 1 Puff BID FLUTICASONE-SALMETEROL 78168637566 No Longer Active Carolee Luz Marina Brown BONIVA 150 MG TABS 1 PO Q month IBANDRONATE SODIUM 69899978335 No Longer Active Carolee Luz Marina Brown CELEBREX 200 MG CAPS 1 po BID CELECOXIB 94522799520 No Longer Active Carolee Luz Marina Brown BACTRIM DS 800-160 MG TAB 1 PO BID TRIMETHOPRIM- SULFAMETHOXAZOLE 29728887207 No Longer Active Carolee Luz Marina Brown K-DUR 10 MEQ TAB CR 1 PO BID with Lasix POTASSIUM CHLORIDE 25253322060 No Longer Active Carolee Luz Marina Brown LASIX 20 MG TAB 1 PO BID for swelling FUROSEMIDE 79928358620 No Longer Active Caroleebatsheva Brown LOVENOX 40 MG/0.4ML SOLN 1 injection prior to flight to prevent blood clot ENOXAPARIN SODIUM 27377907421 No Longer Active Carolee Luz Marina Brown PREDNISONE 20 MG TAB 3 PO daily for 3 days, 2 PO daily for 3 days, 1 PO daily for 2 days PREDNISONE 58118241308 No Longer Active Carolee Luz Marina Brown LEVAQUIN 500 MG TAB 1 PO QD for 7 Days LEVOFLOXACIN 86844398546 No Longer Active Carolee Brown ACTONEL WITH CALCIUM 35-1250 MG TABS 1 PO weekly RISEDRONATE-CALCIUM CARBONATE 16755568760 No Longer Active Caroleebatsheva Brown BONIVA 150 MG TABS 1 PO Q month as directed IBANDRONATE SODIUM 59828727749 No Longer Active Carolee Luz Marina Brown ZITHROMAX Z-JOE 250 MG TABS as directed AZITHROMYCIN 60515369758 No Longer Active Megan Siegrist MEDROL (JOE) 4 MG TABS as directed METHYLPREDNISOLONE 24564536133 No Longer Active Megan Siegrist ZITHROMAX Z-JOE 250 MG TABS as directed AZITHROMYCIN 91596383520 No Longer Active Carolee Luz Marina Brown ALBUTEROL 90 MCG/ACT AERS 2 puffs Q4-6hrs prn ALBUTEROL 93544928659 No Longer Active Carolee Luz Marina Murrayner ALUPENT 0.65 MG/ACT AERP as needed METAPROTERENOL SULFATE 29291089749 No Longer Active Carolee Luz Marina Brown MEDROL (JOE) 4 MG TABS use as directed METHYLPREDNISOLONE 82486320498 No Longer Active Carolee Luz Marina Murrayner MULTIVITAMINS TABS 1 po daily MULTIPLE VITAMIN 61154846608 No Longer Active Carolee Luz Marina Murrayner CALTRATE 600 PLUS-VIT D 600-200 MG-IU TABS 1 PO TID CALCIUM-VITAMIN D 06468335053 Active Carolee Luz Marina Murrayner ADVIL 200 MG CAPS prn IBUPROFEN 23697795931 No Longer Active Carolee Luz Marina Murrayner ZITHROMAX Z-JOE 250 MG TABS use as directed AZITHROMYCIN 24546768308 No Longer Active Carolee Luz Marina Murrayner CALCIUM 500 MG TABS 1 po tID CALCIUM 23222737651 No Longer Active Carolee Luz Marina Murrayner BEXTRA 20 MG TABS one po daily VALDECOXIB 77163258356 No Longer Active Carolee Luz Marina Stephanie [...] mg/dL Encounters Code Encounter Date Provider Facility CPT-11049 Ofc Vst, Est Level III 13:18:57 CDT Carolee Brown DO, FACP CPT-05078 Ofc Vst, Est Level III 19:51:40 INVERTED BLOCK OPERATOR Carolee Brown DO, FACP CPT-38937 Ofc Vst, Est Level III 16:53:45 INVERTED BLOCK OPERATOR Carolee Brown DO, FACP CPT-72319 Ofc Vst, Est Level III 13:12:19 INVERTED BLOCK OPERATOR Carolee Wheeler Brown, DO, FACP CPT-03135 Ofc Vst, Est Level III 14:42:44 CDT Caroleebatsheva Wheeler Brown, DO, FACP CPT-34547 Ofc Vst, Est Level III 14:09:17 CDT Caroleebatsheva Wheeler Stephanie, DO, FACP CPT-23286 Ofc Vst, Est Level III 11:30:16 INVERTED BLOCK OPERATOR Carolee Wheeler Stephanie, DO, FACP CPT-30806 Ofc Vst, Est Level III 11:32:30 INVERTED BLOCK OPERATOR Carolee Wheeler Stephanie, DO, FACP CPT-02789 Ofc Vst, Est Level IV 10:59:40 CDT Caroleebatsheva Wheeler Stephanie, DO, FACP CPT-35401 Ofc Vst, Est Level III 16:44:16 CDT Caroleebatsheva Wheeler Stephanie, DO, FACP CPT-66146 Ofc Vst, Est Level IV 11:31:54 CDT Caroleebatsheva Wheeler Stephanie, DO, FACP CPT-90747 Ofc Vst, Est Level III 14:42:52 CDT Carolee Brown [facility] CPT-65973 Ofc Vst, Est Level IV 10:38:00 CDT Caroleebatsheva Wheeler Stephanie, DO, FACP CPT-58523 Ofc Vst, Est Level IV 11:51:26 CDT Caroleebatsheva Wheeler Stephanie, DO, FACP CPT-30417 Ofc Vst, Est Level V 11:15:19 CDT Carolee Wheeler Stephanie, DO, FACP CPT-79915 Ofc Vst, Est Level IV 11:14:51 CDT Carolee Luz Marina Wheeler Stephanie, DO, FACP CPT-11413 Ofc Vst, Est Level IV 10:51:44 CDT Caroleebatsheva Wheeler Brown, DO, FACP CPT-57294 Ofc Vst, Est Level IV 10:18:20 CDT Carolee Luz Marina Wheeler Brown, DO, FACP CPT-09835 Ofc Vst, Est Level IV 11:25:16 CDT Caroleebatsheva Wheeler Brown, DO, FACP CPT-60950 Ofc Vst, Est Level V 10:51:26 CDT Carolee Luz Marina Wheeler Brown, DO, FACP CPT-93107 Ofc Vst, Est Level IV 15:18:28 INVERTED BLOCK OPERATOR Carolee Wheeler Brown, DO, FACP CPT-37268 Ofc Vst, Est Level IV 09:55:03 INVERTED BLOCK OPERATOR Caroleebatsheva Wheeler Brown, DO, FACP CPT-17234 Ofc Vst, Est Level IV 11:29:27 CDT Caroleebatsheva Wheeler Brown, DO, FACP CPT-45216 Ofc Vst, Est Level IV 11:56:00 CDT Carolee Wheeler Brown, DO, FACP CPT-64188 Ofc Vst, Est Level IV 15:25:37 CDT Caroleebatsheva Wheeler Brown, DO, FACP CPT-92546 Ofc Vst, Est Level III 16:06:39 CDT Caroleebatsheva Wheeler Brown, DO, FACP CPT-60017 Ofc Vst, Est Level IV 10:01:16 CDT Carolee Wheeler Brown, DO, FACP CPT-98706 Ofc Vst, Est Level IV 10:26:26 INVERTED BLOCK OPERATOR Carolee Wheeler Stephanie, DO, FACP CPT-56405 Ofc Vst, Est Level IV 14:59:16 CDT Carolee Luz Marina Brown, DO, FACP CPT-62590 Ofc Vst, Est Level III 10:51:23 CDT Carolee Luz Marina Stephanie Strongi S Stephanie, DO, FACP CPT-54067 Ofc Vst, Est Level II 11:14:55 CDT Carolee Luz Marinarashi Strongi Summer Brown, DO, FACP CPT-34233 Ofc Vst, Est Level III 10:01:34 CDT Carolee Luz Marina Stephanie Zarco S Stephanie, DO, FACP CPT-14728 Ofc Vst, Est Level IV 14:38:36 CDT Caroleebatsheva [facility] [place] CPT-57416 Ofc Vst, Est Level IV 15:38:00 CDT Caroleebatsheva Brown [facility] [place] CPT-66503 Ofc Vst, Est Level V 10:50:54 CDT Carolee Luz Marina Brown [facility] [place] CPT-49584 Ofc Vst, Est Level III 10:15:13 CDT Carolee Luz Marina Brown [facility] [place] CPT-32632 Ofc Vst, Est Level IV 09:36:45 CDT Carolee Luz Marina Brown [facility] [place] CPT-27395 Ofc Vst, Est Level IV 13:07:23 CDT Caroleebatsheva Brown [facility] [place] CPT-26567 Ofc Vst, Est Level IV 14:36:05 CDT Caroleebatsheva Brown [facility] [place] CPT-17152 Ofc Vst, Est Level III 14:53:52 CDT Carolee Brown [facility] [place] CPT-74101 Ofc Vst, New Level III 17:13:16 INVERTED BLOCK OPERATOR Carolee Brown [facility] [place] Procedures Code Procedure Name Date Entry Date Standard Description CPT-G0439 Medicare Annual Wellness Visit 20:41:18 CDT CPT-G8443 E-Prescribing Medication Sent 19:51:40 INVERTED BLOCK OPERATOR CPT-G8445 E-Prescribing Not sent due to no medication given 15:39: 28 CDT CPT-G0439 Medicare Annual Wellness Visit 15:39:28 CDT CPT-G8445 E-Prescribing Not sent due to no medication given 16:53: 45 INVERTED BLOCK OPERATOR CPT-G8445 E-Prescribing Not sent due to no medication given 13:12: 19 INVERTED BLOCK OPERATOR CPT-G8443 E-Prescribing Medication Sent 14:42:44 CDT CPT-G0438 Medicare Annual Wellness Visit Initial 11:23:44 CDT CPT-32152 Injection 10:15:13 CDT
--- OUTSIDE RECORDS SUMMARY | 2017-08-10 20:44 | XMS REPORT | Clinical Summary ---
Author Author User, MISBAH Organization [facility] Address Unknown Phone Unavailable Allergies, Adverse Reactions, [...] % CREA apply BID TRIAMCINOLONE ACETONIDE (TOP) 43491442309 Active Carolee Brown ZOSTAVAX 86960 UNT/0.65ML SOLR 1 injection once to prevent Shingles ZOSTER VACCINE LIVE 28148767154 No Longer Active Caroleebatsheva Brown ATARAX 25 MG TAB 1 PO QHS HYDROXYZINE HCL No Longer Active Carolee Luz Marina Brown PROAIR HFA 108 (90 BASE) MCG/ACT AERS 2 puff Q4 hrs prn wheezing ALBUTEROL SULFATE 04529305802 No Longer Active Caroleebatsheva Brown SYNTHROID 0.05 MG TAB 1 PO daily on empty stomach LEVOTHYROXINE SODIUM 23574095346 Active Akilah Ambrocio CLOBETASOL PROPIONATE 0.05 % CREA Apply to affected areas BID CLOBETASOL PROPIONATE 01729351419 No Longer Active Carolee Brown PREDNISONE 20 MG TAB 2 pills at once for 2 days then 1 pill daily for 5 days PREDNISONE 11419943643 No Longer Active Carolee Brown HYDROCODONE-ACETAMINOPHEN 10-325 MG TABS 1 PO Q4hrs prn pain 2011 HYDROCODONE-ACETAMINOPHEN 19261226897 No Longer Active Caroleeabtsheva Brown CLEOCIN 300 MG CAPS 1 PO Q8hrs for 10 days CLINDAMYCIN HCL 03033128759 No Longer Active Caroleebatsheva Brown BACTRIM DS 800-160 MG TAB 1 PO BID TRIMETHOPRIM- SULFAMETHOXAZOLE 78182093621 No Longer Active Carolee Brown MOBIC 15 MG TABS 1 PO DAILY MELOXICAM 04549476960 Active Akilah Ambrocio DAYPRO 600 MG TABS 1 PO TID OXAPROZIN 21610053993 No Longer Active Carolee Brown MOBIC 15 MG TABS 1 po daily MELOXICAM 72299469266 No Longer Active Akilah Ambrocio DAYPRO 600 MG TAB 2 po daily OXAPROZIN 64606333642 No Longer Active Caroleebatsheva Brown CELEBREX 200 MG CAPS 1 po BID CELECOXIB 31867031494 No Longer Active Carolee Luz Marina Brown BACTRIM DS 800-160 MG TAB 1 PO BID TRIMETHOPRIM- SULFAMETHOXAZOLE 63251216319 No Longer Active Carolee Luz Marina Stephanie BACTRIM DS 800-160 MG TAB 1 PO BID TRIMETHOPRIM- SULFAMETHOXAZOLE 99375224299 No Longer Active Carolee Luz Marina Brown K-DUR 10 MEQ TAB CR 1 PO daily with Lasix PRN POTASSIUM CHLORIDE No Longer Active Carolee Luz Marina Brown LASIX 20 MG TAB 1 PO QD PRN FUROSEMIDE 93841066185 No Longer Active Carolee Luz Marina Brown FOSAMAX 70 MG TABS 1 PO Qwk ALENDRONATE SODIUM 83470333221 No Longer Active Carolee Luz Marina Brown BACTRIM DS 800-160 MG TAB 1 PO BID TRIMETHOPRIM- SULFAMETHOXAZOLE 57477296848 No Longer Active Carolee Luz Marina Brown SYNTHROID 0.025 MG TAB 1 PO daily on empty stomach LEVOTHYROXINE SODIUM 14640839302 No Longer Active Carolee Luz Marina Brown DICLOFENAC SODIUM 50 MG TBEC I PO TID DICLOFENAC SODIUM 56691304185 No Longer Active Carolee Luz Marina Brown XOPENEX CONCENTRATE 1.25 MG/0.5ML NEBU 1 Neb treatment QID prn LEVALBUTEROL HCL 01974139020 No Longer Active Carolee Luz Marina Brown SYMBICORT 160-4.5 MCG/ACT AERO 2 puffs BID BUDESONIDE -FORMOTEROL FUMARATE 76584507379 No Longer Active Carolee Luz Marina Brown SPIRIVA HANDIHALER 18 MCG CAPS 1 puff daily TIOTROPIUM BROMIDE MONOHYDRATE 60569895624 No Longer Active Carolee Luz Marina Brown SINGULAIR 10 MG TABS 1 PO QHS MONTELUKAST SODIUM 85983306711 No Longer Active Carolee Luz Marina Brown DICLOFENAC SODIUM 50 MG TBEC 1 PO TID DICLOFENAC SODIUM 77902195578 No Longer Active Carolee Luz Marina Brown DUONEB 0.5-2.5 (3) MG/3ML SOLN 1 tx QID PRN IPRATROPIUM- ALBUTEROL 46653367916 No Longer Active Carolee Luz Marina Brown ROBITUSSIN A-C 10-100 MG/5ML SYRUP 1 teaspoon PO Q 4-6 hr prn ROBITUSSIN A-C 10-100 MG/5ML SYRUP No Longer Active Carolee Luz Marina Brown BIAXIN 500 MG TAB 1 PO BID CLARITHROMYCIN 25969038101 No Longer Active Carolee Luz Marina Brown PREDNISONE 20 MG TABS 3 po for 3 days, then 2 po for 2 days, then 1 po for 3 days. PREDNISONE 33130122180 No Longer Active Carolee Luz Marina Brown CIPRO 250 MG TABS 1 PO BID CIPROFLOXACIN HCL 60706612982 No Longer Active Carolee Luz Marina Brown VOLTAREN-XR DH98V-HUS 1 PO daily DICLOFENAC SODIUM [id number]-[id number] 91245044223 No Longer Active Carolee Luz Marina Borwn LASIX 20 MG TAB 1 PO QD FUROSEMIDE 05261071282 No Longer Active Carolee Luz Marina Brown ADVAIR DISKUS 100-50 MCG/DOSE MISC 1 puff twice daily. Rinse mouth after use. FLUTICASONE-SALMETEROL 35745314733 No Longer Active Carolee Luz Marina Brown CLEOCIN 150 MG CAPS 1 PO daily after Bactrim completed until further notice. CLINDAMYCIN HCL 62622266311 No Longer Active Carolee Luz Marina Brown DAYPRO 600 MG TABS 2 PO daily OXAPROZIN 26254894079 No Longer Active Carolee Luz Marina Brown BACTRIM DS 800-160 MG TAB 1 PO BID TRIMETHOPRIM- SULFAMETHOXAZOLE 40793007481 No Longer Active Carolee Luz Marina Brown BACTRIM DS 800-160 MG TAB 1 PO BID TRIMETHOPRIM- SULFAMETHOXAZOLE 72492908711 No Longer Active Carolee Luz Marina Brown PREDNISONE 20 MG TAB 2 pills daily at once for 4 days, 1 once daily for 3 days PREDNISONE 73858297244 No Longer Active Carolee Luz Marina Brown LEVAQUIN 750 MG TABS 1 PO daily LEVOFLOXACIN 01025638339 No Longer Active Carolee Luz Marina Brown PREDNISONE 20 MG TAB 2 pills at once for 2 days then 1 pill daily for 2 days PREDNISONE 14709522724 No Longer Active Carolee Luz Marina Brown ROBITUSSIN A-C 10-100 MG/5ML SYRUP 1 teaspoon PO Q 4-6 hr prn ROBITUSSIN A-C 10-100 MG/5ML SYRUP 48319792287 No Longer Active Carolee Luz Marina Brown BIAXIN XL PAC 500 MG TB24 2 pills at same time daily for 7 days CLARITHROMYCIN 12695496369 No Longer Active Carolee Luz Marina Brown DAYPRO 600 MG TABS 2 PO QAM OXAPROZIN 37101337636 No Longer Active Carolee Luz Marina Brown ALBUTEROL 90 MCG/ACT AERS 2 puffs Q4-6hrs prn ALBUTEROL 96430428478 No Longer Active Carolee Luz Marina Brown ADVAIR DISKUS 250-50 MCG/DOSE MISC 1 Puff BID FLUTICASONE-SALMETEROL 21119010365 No Longer Active Carolee Luz Marina Brown BONIVA 150 MG TABS 1 PO Q month IBANDRONATE SODIUM 62712877843 No Longer Active Carolee Luz Marina Brown CELEBREX 200 MG CAPS 1 po BID CELECOXIB 52535792270 No Longer Active Carolee Luz Marina Brown BACTRIM DS 800-160 MG TAB 1 PO BID TRIMETHOPRIM- SULFAMETHOXAZOLE 56838939859 No Longer Active Carolee Luz Marina Brown K-DUR 10 MEQ TAB CR 1 PO BID with Lasix POTASSIUM CHLORIDE 50177594607 No Longer Active Carolee Luz Marina Brown LASIX 20 MG TAB 1 PO BID for swelling FUROSEMIDE 59064565613 No Longer Active Caroleebatsheva Brown LOVENOX 40 MG/0.4ML SOLN 1 injection prior to flight to prevent blood clot ENOXAPARIN SODIUM 25025670527 No Longer Active Caroleebatsheva Brown PREDNISONE 20 MG TAB 3 PO daily for 3 days, 2 PO daily for 3 days, 1 PO daily for 2 days PREDNISONE 09932558952 No Longer Active Caroleebatsheva Brown LEVAQUIN 500 MG TAB 1 PO QD for 7 Days LEVOFLOXACIN 00209984817 No Longer Active Carolee Brown ACTONEL WITH CALCIUM 35-1250 MG TABS 1 PO weekly RISEDRONATE-CALCIUM CARBONATE 65480083586 No Longer Active Caroleebatsheva Brown BONIVA 150 MG TABS 1 PO Q month as directed IBANDRONATE SODIUM 00699167751 No Longer Active Carolee Luz Marina Brown ZITHROMAX Z-JOE 250 MG TABS as directed AZITHROMYCIN 17738573779 No Longer Active Megan Siegrist MEDROL (JOE) 4 MG TABS as directed METHYLPREDNISOLONE 87955481517 No Longer Active Megan Siegrist ZITHROMAX Z-JOE 250 MG TABS as directed AZITHROMYCIN 30185471885 No Longer Active Caroleebatsheva Brown ALBUTEROL 90 MCG/ACT AERS 2 puffs Q4-6hrs prn ALBUTEROL 67497876325 No Longer Active Carolee Luz Marina Brown ALUPENT 0.65 MG/ACT AERP as needed METAPROTERENOL SULFATE 54481574918 No Longer Active Carolee Luz Marina Stephanie MEDROL (JOE) 4 MG TABS use as directed METHYLPREDNISOLONE 76489364030 No Longer Active Carolee Luz Marina Brown MULTIVITAMINS TABS 1 po daily MULTIPLE VITAMIN 50450341415 No Longer Active Carolee Luz Marina Stephanie CALTRATE 600 PLUS-VIT D 600-200 MG-IU TABS 1 PO TID CALCIUM-VITAMIN D 49601952021 Active Carolee Luz Marina Murrayner ADVIL 200 MG CAPS prn IBUPROFEN 28899280527 No Longer Active Carolee Luz Marina Murrayner ZITHROMAX Z-JOE 250 MG TABS use as directed AZITHROMYCIN 20633612495 No Longer Active Carolee Luz Marina Brown CALCIUM 500 MG TABS 1 po tID CALCIUM 07482564131 No Longer Active Carolee Luz Marina Murrayner BEXTRA 20 MG TABS one po daily VALDECOXIB 57280511329 No Longer Active Carolee Luz Marina Stephanie [...] mg/dL Encounters Code Encounter Date Provider Facility CPT-44698 Ofc Vst, Est Level III 13:18:57 CDT Carolee Brown DO, FACP CPT-73218 Ofc Vst, Est Level III 19:51:40 SCIENTOLOGIST Carolee Brown DO, FACP CPT-28869 Ofc Vst, Est Level III 16:53:45 SCIENTOLOGIST Carolee Brown DO, FACP CPT-86634 Ofc Vst, Est Level III 13:12:19 SCIENTOLOGIST Carolee Strongi S Brown, DO, FACP CPT-05796 Ofc Vst, Est Level III 14:42:44 CDT Carolee Luz Marina Wheeler Brown, DO, FACP CPT-05690 Ofc Vst, Est Level III 14:09:17 CDT Caroleebatsheva Wheeler Brown, DO, FACP CPT-66770 Ofc Vst, Est Level III 11:30:16 SCIENTOLOGIST Caroleebatsheva Wheeler Brown, DO, FACP CPT-52557 Ofc Vst, Est Level III 11:32:30 SCIENTOLOGIST Carolee Wheeler Brown, DO, FACP CPT-16126 Ofc Vst, Est Level IV 10:59:40 CDT Caroleebatsheva Wheeler Stephanie, DO, FACP CPT-45416 Ofc Vst, Est Level III 16:44:16 CDT Caroleebatsheva Wheeler Stephanie, DO, FACP CPT-94090 Ofc Vst, Est Level IV 11:31:54 CDT Caroleebatsheva Wheeler Stephanie, DO, FACP CPT-39882 Ofc Vst, Est Level III 14:42:52 CDT Caroleebatsheva Brown [facility] CPT-73860 Ofc Vst, Est Level IV 10:38:00 CDT Caroleebatsheva Wheeler Stephanie, DO, FACP CPT-91021 Ofc Vst, Est Level IV 11:51:26 CDT Caroleebatsheva Wheeler Stephanie, DO, FACP CPT-28782 Ofc Vst, Est Level V 11:15:19 CDT Carolee Luz Marina Wheeler Stephanie, DO, FACP CPT-19865 Ofc Vst, Est Level IV 11:14:51 CDT Carolee Luz Marina Wheeler Stephanie, DO, FACP CPT-06610 Ofc Vst, Est Level IV 10:51:44 CDT Caroleebatsheva Wheeler Brown, DO, FACP CPT-11150 Ofc Vst, Est Level IV 10:18:20 CDT Carolee Luz Marina Wheeler Brown, DO, FACP CPT-67900 Ofc Vst, Est Level IV 11:25:16 CDT Caroleebatsheva Wheeler Brown, DO, FACP CPT-96353 Ofc Vst, Est Level V 10:51:26 CDT Carolee Luz Marina Wheeler Brown, DO, FACP CPT-67235 Ofc Vst, Est Level IV 15:18:28 SCIENTOLOGIST Carolee Wheeler Brown, DO, FACP CPT-20772 Ofc Vst, Est Level IV 09:55:03 SCIENTOLOGIST Caroleebatsheva Wheeler Stephanie, DO, FACP CPT-87807 Ofc Vst, Est Level IV 11:29:27 CDT Caroleebatsheva Wheeler Rbown, DO, FACP CPT-20120 Ofc Vst, Est Level IV 11:56:00 CDT Carolee Wheeler Brown, DO, FACP CPT-71761 Ofc Vst, Est Level IV 15:25:37 CDT Caroleebatsheva Wheeler Brown, DO, FACP CPT-79817 Ofc Vst, Est Level III 16:06:39 CDT Caroleebatsheva Wheeler Brown, DO, FACP CPT-72865 Ofc Vst, Est Level IV 10:01:16 CDT Carolee Wheeler Brown, DO, FACP CPT-85176 Ofc Vst, Est Level IV 10:26:26 SCIENTOLOGIST Carolee Wheeler Stephanie, DO, FACP CPT-11371 Ofc Vst, Est Level IV 14:59:16 CDT Carolee Luz Marinarashi Strongi Summer Brown, DO, FACP CPT-66998 Ofc Vst, Est Level III 10:51:23 CDT Carolee Luz Marina Stephanie Strongi S Brown, DO, FACP CPT-33532 Ofc Vst, Est Level II 11:14:55 CDT Carolee Luz Marina Stephanie Strongi Summer Brown, DO, FACP CPT-04474 Ofc Vst, Est Level III 10:01:34 CDT Carolee Luz Marina Stephanie Strongi S Stephanie, DO, FACP CPT-98276 Ofc Vst, Est Level IV 14:38:36 CDT Caroleebatsheva [facility] CPT-56330 Ofc Vst, Est Level IV 15:38:00 CDT Carolee Luz Marina Brown [facility] CPT-91036 Ofc Vst, Est Level V 10:50:54 CDT Carolee Luz Marina Brown [facility] CPT-78350 Ofc Vst, Est Level III 10:15:13 CDT Carolee Luz Marina Brown [facility] CPT-71677 Ofc Vst, Est Level IV 09:36:45 CDT Carolee Luz Marina Brown [facility] CPT-92599 Ofc Vst, Est Level IV 13:07:23 CDT Carolee Luz Marina Brown [facility] CPT-80924 Ofc Vst, Est Level IV 14:36:05 CDT Carolee Luz Marina Brown [facility] CPT-75175 Ofc Vst, Est Level III 14:53:52 CDT Caroleebatsheva Brown [facility] CPT-02656 Ofc Vst, New Level III 17:13:16 SCIENTOLOGIST Carolee Brown [facility] Procedures Code Procedure Name Date Entry Date Standard Description CPT-G0439 Medicare Annual Wellness Visit 20:41:18 CDT CPT-G8443 E-Prescribing Medication Sent 19:51:40 SCIENTOLOGIST CPT-G8445 E-Prescribing Not sent due to no medication given 15:39: 28 CDT CPT-G0439 Medicare Annual Wellness Visit 15:39:28 CDT CPT-G8445 E-Prescribing Not sent due to no medication given 16:53: 45 SCIENTOLOGIST CPT-G8445 E-Prescribing Not sent due to no medication given 13:12: 19 SCIENTOLOGIST CPT-G8443 E-Prescribing Medication Sent 14:42:44 CDT CPT-G0438 Medicare Annual Wellness Visit Initial 11:23:44 CDT CPT-48315 Injection 10:15:13 CDT
--- OUTSIDE RECORDS SUMMARY | 2017-08-10 20:45 | XMS REPORT | Clinical Summary ---
Author Author User, MISBAH Organization [facility] Address Unknown Phone Unavailable Allergies, Adverse Reactions, [...] localized, involving unspecified site OSTEOPOROSIS, GENERALIZED 733.00 Resolved Carolee Brown Osteoporosis, unspecified COUGH 786.2 Resolved [...] of leg, except foot URTICARIA, ACUTE 708.9 Resolved Carolee Brown Unspecified urticaria CELLULITIS 682.9 Active Carolee Brown Cellulitis and abscess of unspecified sites Medication List Medication Instructions Start Date Stop Date Generic Name NDC Status Provider Patient Instruction TRIAMCINOLONE ACETONIDE 0.1 % CREA apply BID TRIAMCINOLONE ACETONIDE (TOP) 38930941919 Active Carolee Brown ZOSTAVAX 69174 UNT/0.65ML SOLR 1 injection once to prevent Shingles ZOSTER VACCINE LIVE 65288030618 No Longer Active Carolee Brown ATARAX 25 MG TAB 1 PO QHS HYDROXYZINE HCL No Longer Active Caroleebatsheva Brown PROAIR HFA 108 (90 BASE) MCG/ACT AERS 2 puff Q4 hrs prn wheezing ALBUTEROL SULFATE 08122137194 No Longer Active Caroleebatsheva Brown SYNTHROID 0.05 MG TAB 1 PO daily on empty stomach LEVOTHYROXINE SODIUM 40705393798 Active Akilah Ambrocio CLOBETASOL PROPIONATE 0.05 % CREA Apply to affected areas BID CLOBETASOL PROPIONATE 70245383139 No Longer Active Carolee Brown PREDNISONE 20 MG TAB 2 pills at once for 2 days then 1 pill daily for 5 days PREDNISONE 72589264922 No Longer Active Caroleebatsheva Brown HYDROCODONE-ACETAMINOPHEN 10-325 MG TABS 1 PO Q4hrs prn pain 2011 HYDROCODONE-ACETAMINOPHEN 18378796090 No Longer Active Carolee Brown CLEOCIN 300 MG CAPS 1 PO Q8hrs for 10 days CLINDAMYCIN HCL 99360994117 No Longer Active Carolee Brown BACTRIM DS 800-160 MG TAB 1 PO BID TRIMETHOPRIM- SULFAMETHOXAZOLE 69589228465 No Longer Active Carolee Brown MOBIC 15 MG TABS 1 PO DAILY MELOXICAM 65634375504 Active Akilah Ambrocio DAYPRO 600 MG TABS 1 PO TID OXAPROZIN 49314640434 No Longer Active Caroleebatsheva Brown MOBIC 15 MG TABS 1 po daily MELOXICAM 16858338046 No Longer Active Akilah Ambrocio DAYPRO 600 MG TAB 2 po daily OXAPROZIN 11819396160 No Longer Active Carolee Luz Marina Brown CELEBREX 200 MG CAPS 1 po BID CELECOXIB 89209279680 No Longer Active Carolee Luz Marina Brown BACTRIM DS 800-160 MG TAB 1 PO BID TRIMETHOPRIM- SULFAMETHOXAZOLE 19223528490 No Longer Active Carolee Luz Marina Brown BACTRIM DS 800-160 MG TAB 1 PO BID TRIMETHOPRIM- SULFAMETHOXAZOLE 44530088494 No Longer Active Carolee Luz Marina Brown K-DUR 10 MEQ TAB CR 1 PO daily with Lasix PRN POTASSIUM CHLORIDE No Longer Active Carolee Luz Marina Brown LASIX 20 MG TAB 1 PO QD PRN FUROSEMIDE 59117427158 No Longer Active Carolee Luz Marina Brown FOSAMAX 70 MG TABS 1 PO Qwk ALENDRONATE SODIUM 19714975731 No Longer Active Carolee Luz Marina Brown BACTRIM DS 800-160 MG TAB 1 PO BID TRIMETHOPRIM- SULFAMETHOXAZOLE 25589062357 No Longer Active Carolee Luz Marina Brown SYNTHROID 0.025 MG TAB 1 PO daily on empty stomach LEVOTHYROXINE SODIUM 93813859310 No Longer Active Carolee Luz Marina Brown DICLOFENAC SODIUM 50 MG TBEC I PO TID DICLOFENAC SODIUM 15976589097 No Longer Active Carolee Luz Marina Bronw XOPENEX CONCENTRATE 1.25 MG/0.5ML NEBU 1 Neb treatment QID prn LEVALBUTEROL HCL 41778007089 No Longer Active Carolee Luz Marina Brown SYMBICORT 160-4.5 MCG/ACT AERO 2 puffs BID BUDESONIDE -FORMOTEROL FUMARATE 26069387223 No Longer Active Carolee Luz Marina Brown SPIRIVA HANDIHALER 18 MCG CAPS 1 puff daily TIOTROPIUM BROMIDE MONOHYDRATE 86016732310 No Longer Active Carolee Luz Marina Brown SINGULAIR 10 MG TABS 1 PO QHS MONTELUKAST SODIUM 51815897572 No Longer Active Carolee Luz Marina Brown DICLOFENAC SODIUM 50 MG TBEC 1 PO TID DICLOFENAC SODIUM 79406869821 No Longer Active Carolee Luz Marina Brown DUONEB 0.5-2.5 (3) MG/3ML SOLN 1 tx QID PRN IPRATROPIUM- ALBUTEROL 24756214501 No Longer Active Carolee Luz Marina Brown ROBITUSSIN A-C 10-100 MG/5ML SYRUP 1 teaspoon PO Q 4-6 hr prn ROBITUSSIN A-C 10-100 MG/5ML SYRUP No Longer Active Carolee Luz Marina Brown BIAXIN 500 MG TAB 1 PO BID CLARITHROMYCIN 27013812627 No Longer Active Carolee Luz Marina Brown PREDNISONE 20 MG TABS 3 po for 3 days, then 2 po for 2 days, then 1 po for 3 days. PREDNISONE 52783426589 No Longer Active Carolee Luz Marina Brown CIPRO 250 MG TABS 1 PO BID CIPROFLOXACIN HCL 61643384196 No Longer Active Carolee Luz Marina Brown VOLTAREN-XR NJ58S-PDJ 1 PO daily DICLOFENAC SODIUM DK25M-QBS 22872874505 No Longer Active Carolee Luz Marina Brown LASIX 20 MG TAB 1 PO QD FUROSEMIDE 87754610862 No Longer Active Carolee Luz Marina Brown ADVAIR DISKUS 100-50 MCG/DOSE MISC 1 puff twice daily. Rinse mouth after use. FLUTICASONE-SALMETEROL 34993981418 No Longer Active Carolee Luz Marina Brown CLEOCIN 150 MG CAPS 1 PO daily after Bactrim completed until further notice. CLINDAMYCIN HCL 30275696894 No Longer Active Carolee Luz Marina Brown DAYPRO 600 MG TABS 2 PO daily OXAPROZIN 04296968629 No Longer Active Carolee Luz Marina Brown BACTRIM DS 800-160 MG TAB 1 PO BID TRIMETHOPRIM- SULFAMETHOXAZOLE 27151619977 No Longer Active Carolee Luz Marina Brown BACTRIM DS 800-160 MG TAB 1 PO BID TRIMETHOPRIM- SULFAMETHOXAZOLE 49722967035 No Longer Active Carolee Luz Marina Brown PREDNISONE 20 MG TAB 2 pills daily at once for 4 days, 1 once daily for 3 days PREDNISONE 87363418851 No Longer Active Carolee Luz Marina Brown LEVAQUIN 750 MG TABS 1 PO daily LEVOFLOXACIN 45958199835 No Longer Active Carolee Luz Marina Brown PREDNISONE 20 MG TAB 2 pills at once for 2 days then 1 pill daily for 2 days PREDNISONE 83864317826 No Longer Active Carolee Luz Marina Brown ROBITUSSIN A-C 10-100 MG/5ML SYRUP 1 teaspoon PO Q 4-6 hr prn ROBITUSSIN A-C 10-100 MG/5ML SYRUP 52351596329 No Longer Active Carolee Luz Marina Brown BIAXIN XL PAC 500 MG TB24 2 pills at same time daily for 7 days CLARITHROMYCIN 24110569193 No Longer Active Carolee Luz Marina Brown DAYPRO 600 MG TABS 2 PO QAM OXAPROZIN 36626952179 No Longer Active Carolee Luz Marina Brown ALBUTEROL 90 MCG/ACT AERS 2 puffs Q4-6hrs prn ALBUTEROL 92636456056 No Longer Active Carolee Luz Marina Brown ADVAIR DISKUS 250-50 MCG/DOSE MISC 1 Puff BID FLUTICASONE-SALMETEROL 40906561872 No Longer Active Carolee Luz Marina Brown BONIVA 150 MG TABS 1 PO Q month IBANDRONATE SODIUM 00107645210 No Longer Active Carolee Luz Marina Brown CELEBREX 200 MG CAPS 1 po BID CELECOXIB 20595415767 No Longer Active Carolee Luz Marina Brown BACTRIM DS 800-160 MG TAB 1 PO BID TRIMETHOPRIM- SULFAMETHOXAZOLE 29356790263 No Longer Active Carolee Luz Marina Brown K-DUR 10 MEQ TAB CR 1 PO BID with Lasix POTASSIUM CHLORIDE 69014473055 No Longer Active Carolee Luz Marina Brown LASIX 20 MG TAB 1 PO BID for swelling FUROSEMIDE 64311579753 No Longer Active Carolee Luz Marina Brown LOVENOX 40 MG/0.4ML SOLN 1 injection prior to flight to prevent blood clot ENOXAPARIN SODIUM 94500506651 No Longer Active Carolee Luz Marina rBown PREDNISONE 20 MG TAB 3 PO daily for 3 days, 2 PO daily for 3 days, 1 PO daily for 2 days PREDNISONE 48300201560 No Longer Active Carolee Luz Marina Brown LEVAQUIN 500 MG TAB 1 PO QD for 7 Days LEVOFLOXACIN 53174268741 No Longer Active Carolee Luz Marina Brown ACTONEL WITH CALCIUM 35-1250 MG TABS 1 PO weekly RISEDRONATE-CALCIUM CARBONATE 11946439553 No Longer Active Carolee Luz Marina Brown BONIVA 150 MG TABS 1 PO Q month as directed IBANDRONATE SODIUM 26744399759 No Longer Active Carolee Luz Marina Brown ZITHROMAX Z-JOE 250 MG TABS as directed AZITHROMYCIN 94434824385 No Longer Active Megan Siegrist MEDROL (JOE) 4 MG TABS as directed METHYLPREDNISOLONE 33829481325 No Longer Active Megan Siegrist ZITHROMAX Z-JOE 250 MG TABS as directed AZITHROMYCIN 59937792990 No Longer Active Carolee Almazane Stephanie ALBUTEROL 90 MCG/ACT AERS 2 puffs Q4-6hrs prn ALBUTEROL 36161349233 No Longer Active Carolee Luz Marina Brown ALUPENT 0.65 MG/ACT AERP as needed METAPROTERENOL SULFATE 19095840192 No Longer Active Caroleebatsheva Brown MEDROL (JOE) 4 MG TABS use as directed METHYLPREDNISOLONE 33032616321 No Longer Active Caroleebatsheva Brown MULTIVITAMINS TABS 1 po daily MULTIPLE VITAMIN 85796909502 No Longer Active Carolee Brown CALTRATE 600 PLUS-VIT D 600-200 MG-IU TABS 1 PO TID CALCIUM-VITAMIN D 07084303663 Active Carolee Luz Marina Brown ADVIL 200 MG CAPS prn IBUPROFEN 24971995699 No Longer Active Carolee Luz Marina Stephanie ZITHROMAX Z-JOE 250 MG TABS use as directed AZITHROMYCIN 34840703302 No Longer Active Caroleebatsheva Brown CALCIUM 500 MG TABS 1 po tID CALCIUM 59714442849 No Longer Active Caroleebatsheva Brown BEXTRA 20 MG TABS one po daily VALDECOXIB 86033308455 No Longer Active Carolee Brown Immunizations Vaccine Administration Date Value Standard Description Influenza vaccine given Done influenza virus vaccine, unspecified formulation Vital Signs Date Name Value Unit Range Description blood pressure, diastolic - 8462-4 75 mm[Hg] BP holland blood pressure, systolic - 8480-6 135 mm[Hg] BP sys pulse rate E&M - 8867-4 72 /min Heart rate respiratory rate E&M - 9279-1 12 /min Resp rate weight E&M - 3141-9 162 [lb_av] Weight Measured blood pressure, diastolic - 8462-4 74 mm[Hg] [...] mg/dL Encounters Code Encounter Date Provider Facility CPT-99800 Ofc Vst, Est Level III 15:57:26 CDT Caroleebatsheva Brown [facility] CPT-09297 Ofc Vst, Est Level III 13:18:57 CDT Carolee Luz Marina Wheeler Brown, DO, FACP CPT-19918 Ofc Vst, Est Level III 19:51:40 [facility] [employer] Carolee Luz Marina Wheeler Brown, DO, FACP CPT-51849 Ofc Vst, Est Level III 16:53:45 [employer] [employer] Carolee Zarco S Brown, DO, FACP CPT-39373 Ofc Vst, Est Level III 13:12:19 [employer] [employer] Carolee Zarco S Stephanie, DO, FACP CPT-30732 Ofc Vst, Est Level III 14:42:44 CDT Carolee Luz Marina Wheeler Stephanie, DO, FACP CPT-42418 Ofc Vst, Est Level III 14:09:17 CDT Carolee Luz Marina Wheeler Stephanie, DO, FACP CPT-22011 Ofc Vst, Est Level III 11:30:16 [employer] Caroleebatsheva Wheeler Stephanie, DO, FACP CPT-78176 Ofc Vst, Est Level III 11:32:30 [employer] Carolee Wheeler Stephanie, DO, FACP CPT-46876 Ofc Vst, Est Level IV 10:59:40 CDT Carolee Luz Marina Wheeler Stephanie, DO, FACP CPT-19007 Ofc Vst, Est Level III 16:44:16 CDT Carolee Luz Marina Zarco S Stephanie, DO, FACP CPT-15132 Ofc Vst, Est Level IV 11:31:54 CDT Carolee Luz Marina Wheeler Stephanie, DO, FACP CPT-94181 Ofc Vst, Est Level III 14:42:52 CDT Carolee Luz Marina Brown [facility] CPT-45478 Ofc Vst, Est Level IV 10:38:00 CDT Carolee Luz Marina Wheeler Brown, DO, FACP CPT-72547 Ofc Vst, Est Level IV 11:51:26 CDT Carolee Luz Marina Wheeler Brown, DO, FACP CPT-83638 Ofc Vst, Est Level V 11:15:19 CDT Carolee Luz Marina Wheeler Stephanie, DO, FACP CPT-61412 Ofc Vst, Est Level IV 11:14:51 CDT Carolee Luz Marina Wheeler Stephanie, DO, FACP CPT-20680 Ofc Vst, Est Level IV 10:51:44 CDT Carolee Luz Marina Wheeler Stephanie, DO, FACP CPT-85822 Ofc Vst, Est Level IV 10:18:20 CDT Carolee Luz Marina Wheeler Stephanie, DO, FACP CPT-54403 Ofc Vst, Est Level IV 11:25:16 CDT Caroleebatsheva Wheeler Stephanie, DO, FACP CPT-20849 Ofc Vst, Est Level V 10:51:26 CDT Carolee Wheeler Stephanie, DO, FACP CPT-96876 Ofc Vst, Est Level IV 15:18:28 [employer] Caroleebatsheva Wheeler Stephanie, DO, FACP CPT-46310 Ofc Vst, Est Level IV 09:55:03 [employer] Carolee Wheeler Stephanie, DO, FACP CPT-85248 Ofc Vst, Est Level IV 11:29:27 CDT Carolee Luz Marina Wheeler Stephanie, DO, FACP CPT-88109 Ofc Vst, Est Level IV 11:56:00 CDT Carolee Luz Marina Wheeler Stephanie, DO, FACP CPT-47187 Ofc Vst, Est Level IV 15:25:37 CDT Caroleebatsheva Murrayner Carolee Wheeler Stephanie, DO, FACP CPT-86498 Ofc Vst, Est Level III 16:06:39 CDT Carolee Wheeler Stephanie, DO, FACP CPT-58761 Ofc Vst, Est Level IV 10:01:16 CDT Carolee Luz Marina Wheeler Stephanie, DO, FACP CPT-83866 Ofc Vst, Est Level IV 10:26:26 [employer] Carolee Luz Marina Murrayner Carolee Summer Stephanie, DO, FACP CPT-33090 Ofc Vst, Est Level IV 14:59:16 CDT Caroleebatsheva Wheeler Stephanie, DO, FACP CPT-56482 Ofc Vst, Est Level III 10:51:23 CDT Carolee Luz Marina Wheeler Stephanie, DO, FACP CPT-32192 Ofc Vst, Est Level II 11:14:55 CDT Carolee Luz Marina Wheeler Stephanie, DO, FACP CPT-53450 Ofc Vst, Est Level III 10:01:34 CDT Caroleebatsheva Murrayner Carolee Summer Stephanie, DO, FACP CPT-36532 Ofc Vst, Est Level IV 14:38:36 CDT Caroleebatsheva [facility] CPT-04840 Ofc Vst, Est Level IV 15:38:00 CDT Caroleebatsheva Brown [facility] [place] CPT-23442 Ofc Vst, Est Level V 10:50:54 CDT Caroleebatsheva Brown [facility] [place] CPT-32098 Ofc Vst, Est Level III 10:15:13 CDT Carolee Brown [facility] [place] CPT-08631 Ofc Vst, Est Level IV 09:36:45 CDT Carolee Luz Marina Brown [facility] [place] CPT-15926 Ofc Vst, Est Level IV 13:07:23 CDT Carolee Luz Marina Stephanie [facility] CPT-67789 Ofc Vst, Est Level IV 14:36:05 CDT Carolee Luz Marina Brown [facility] CPT-34492 Ofc Vst, Est Level III 14:53:52 CDT [facility] Luz Marina Brown [facility] CPT-08252 Ofc Vst, New Level III 17:13:16 [employer] [facility] Luz Marina Brown [facility] Procedures Code Procedure Name Date Entry Date Standard Description CPT-G0439 Medicare Annual Wellness Visit 20:41:18 CDT CPT-G8443 E-Prescribing Medication Sent 19:51:40 [employer] CPT-G8445 E-Prescribing Not sent due to no medication given 15:39: 28 CDT CPT-G0439 Medicare Annual Wellness Visit 15:39:28 CDT CPT-G8445 E-Prescribing Not sent due to no medication given 16:53: 45 [employer] CPT-G8445 E-Prescribing Not sent due to no medication given 13:12: 19 [employer] CPT-G8443 E-Prescribing Medication Sent 14:42:44 CDT CPT-G0438 Medicare Annual Wellness Visit Initial 11:23:44 CDT CPT-82052 Injection 10:15:13 CDT
--- OUTSIDE RECORDS SUMMARY | 2017-08-10 20:46 | XMS REPORT | Continuity of Care Document ---
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 (count/volume) 251 10*3/uL 130-400 Automated blood platelet mean volume measurement 10.4 [foz_us] 7.4-10.4 Automated blood neutrophils/100 leukocytes 86 % 42-75 Automated blood lymphocytes/100 leukocytes 9 % 12-44 Blood monocytes/100 leukocytes 5 % 0-12 Automated blood eosinophils/100 leukocytes 0 % 0-10 Automated blood basophils/100 leukocytes 0 % 0-10 Blood neutrophils automated count (number/volume) 6.4 10*3 1.8-7.8 Blood lymphocytes automated count (number/volume) 0.7 10*3 1.0-4.0 Blood monocytes automated count (number/volume) 0.4 10*3 0.0-1.0 Automated eosinophil count 0.0 10*3/uL 0.0-0.3 Automated blood basophil count (count/volume) 0.0 10*3/uL 0.0-0.1 Whole blood basic metabolic panel - 08/05/17 03:00 Serum or plasma sodium measurement (moles/volume) 142 mmol/L 135-145 Serum or plasma potassium measurement (moles/volume) 4.0 mmol/L 3.6-5.0 Serum or plasma chloride measurement (moles/volume) 114 mmol/L 98-107 Carbon dioxide 21 mmol/L 21-32 Serum or plasma anion gap determination (moles/volume) 7 mmol/L 5-14 Serum or plasma urea nitrogen measurement (mass/volume) 32 mg/dL 7-18 Serum or plasma creatinine measurement (mass/volume) 0.73 mg/dL 0.60-1.30 Serum or plasma urea nitrogen/creatinine mass ratio 44 NRG Serum or plasma creatinine measurement with calculation of estimated glomerular filtration rate > NRG Serum or plasma glucose measurement (mass/volume) 136 mg/dL 70-105 Serum or plasma calcium measurement (mass/volume) 8.2 mg/dL 8.5-10.1 Serum or plasma phosphate measurement (mass/volume) - 08/05/17 03:00 Serum or plasma phosphate measurement (mass/volume) 3.2 mg/dL 2.3-4.7 Magnesium - 08/05/17 03:00 Magnesium 2.3 mg/dL 1.8-2.4 Encounters ACCT No. Visit Date/Time Discharge Status Pt. Type Provider Facility Loc./Unit Complaint [id number] 08/01/2017 17:15:00 08/05/2017 13:20:00 DIS Inpatient ARMIDA DE SOUZA DO [facility] 4TH RESPIRATORY INSUFFICIENCY [id number] 07/31/2017 11:21:00 07/31/2017 23:59:59 CLS Outpatient HARRIETGRACIE APRN [facility] RAD R06.2 [id number] 03/15/2017 07:41:00 03/15/2017 12:20:00 DIS Outpatient ALEIDA CHRISTIE MD [facility] ABDOMINAL WOUND SINUS (RLQ) [id number] 03/08/2017 05:35:00 03/08/2017 10:59:00 DIS Outpatient ALEIDA CHRISTIE MD [facility] PREOP ABDOMINAL WOUND SINUS (RLQ) [id number] 02/06/2017 11:14:00 02/06/2017 23:59:59 CLS Outpatient ALEIDA CHRISTIE MD [facility] RAD RLQ ABD FISTULA/LAB [id number] 11/18/2015 09:22:00 11/18/2015 23:59:59 CLS Emergency SHERIEMARIE Sanchez MD [facility] ER CAT BITE [id number] 10/31/2015 08:32:00 10/31/2015 12:00:00 DIS Outpatient BENJAMIN WHEELER MD [facility] WOUNDCARE [id number] 09/30/2015 17:24:00 10/03/2015 11:15:00 DIS Inpatient ARMIDA DE SOUZA DO [facility] 4TH RLE WOUND/CELLULITE [id number] 05/02/2015 07:22:00 05/02/2015 10:45:00 DIS Outpatient ALEIDA CHRISTIE MD [facility] HX.POLYPS, SCREENING, IRREGULAR BOWEL MOVEMENTS [id number] 04/27/2015 06:12:00 04/27/2015 23:59:59 CLS Outpatient ALEIDA CHRISTIE MD [facility] PREOP HX. POLPS,SCREENING ,IRREGULAR BOWEL MOVEMENTS [id number] 01/31/2015 09:08:00 01/31/2015 10:00:00 DIS Outpatient BENJAMIN WHEELER MD [facility] WOUNDCARE [id number] 01/27/2015 12:23:00 01/30/2015 10:19:00 DIS Inpatient ARMIDA DE SOUZA DO [facility] 4TH SEPSIS [id number] 08/10/2017 20:34:00 ACT Emergency EFRAÍN TRINIDAD DO [facility] ER SOB,DX WITH PNEUMONIA [id number] 01/27/2015 12:01:00 Document Registration [id number] 03/18/2012 12:46:00 Document Registration [id number] 03/14/2012 12:51:00 Document Registration [id number] 03/14/2012 12:09:00 Document Registration [id number] 01/10/2012 16:56:00 Document Registration [id number] 09/14/2011 10:40:00 Document Registration [id number] 05/17/2011 10:20:00 Document Registration [id number] 03/01/2011 09:45:00 Document Registration [id number] 08/23/2010 15:08:00 Document Registration [id number] 08/07/2010 15:50:00 Document Registration [id number] 07/31/2010 12:29:00 Document Registration [id number] 02/18/2010 10:41:00 Document Registration
[2017-08-10] MEDS ORDERED: methylPREDNISolone 125 MG (Solu-MEDROL) VIAL IV STA (21:52)
[2017-08-10] MEDS ORDERED: DEXAMETHASONE 4 MG/ML SDV (DECADRON) IH ONE (22:00)
[2017-08-10] MEDS ORDERED: RT-ALBUTEROL/IPRATROPIUM 3 ML (DUONEB) VIAL INH ONE (22:00)
--- NOTE | 2017-08-10 22:01 | ED Respiratory ---
General Chief Complaint: Respiratory Problems Stated Complaint: SOB,DX WITH PNEUMONIA Nursing Triage Note: pt states recently dc'd in hospital for pneumonia saturday, states just finished up steroids and antibiotics Source: patient, old records History of Present Illness Date Seen by Provider: Aug 10, 2017 Time Seen by Provider: 21:45 Initial Comments PT ARRIVES VIA POV FROM HOME C/O NON-PRODUCTIVE COUGH C/O SHORTNESS OF BREATH PT HAS HISTORY OF ASTHMA/COPD AND WAS ADMITTED 08/01-08/05 FOR EXACERBATION / PNEUMONIA--FINISHED ANTIBIOTICS AND STEROIDS YESTERDAY. HAS DOING BETTER, THEN GOT WORSE TODAY USED ALBUTEROL NEBULIZER AN HOUR AGO WITHOUT RELIEF Allergies and Home Medications Allergies Coded Allergies: morphine (Verified Allergy, Severe, 09/30/15) DIFFICULTY BREATHING levofloxacin (Verified Allergy, Unknown, joint pain, 03/08/17) Home Medications Albuterol Sulfate 1 Puff Puff, 2 PUFF IH Q4H 1 PUFF = 90 MCG Prescribed by: FE RIVER on 08/05/17 1012 Amoxicillin 500 Mg Tablet, 500 MG PO BID Prescribed by: FE RIVER on 08/05/17 1012 Biotin 1,000 Mcg Tablet, 1,000 MCG PO DAILY, (Reported) Budesonide 0.5 Mg/2 Ml Ampul.neb, 0.5 MG INH RTBID Prescribed by: FE RIVER on 08/05/17 1035 Levothyroxine Sodium 50 Mcg Tablet, 50 MCG PO DAILY, (Reported) Loratadine 10 Mg Tablet, 10 MG PO DAILY Prescribed by: FE RIVER on 08/05/17 1012 Meloxicam 15 Mg Tablet, 15 MG PO DAILY, (Reported) Montelukast Sodium 10 Mg Tablet, 10 MG PO HS Prescribed by: FE RIVER on 08/05/17 1012 Prednisone 10 Mg Tab, 60 MG PO DAILY Prescribed by: FE RIVER on 08/05/17 1012 Past Ybutbjv-Kgmnjq-Hfzdlb Hx Patient Social History Alcohol Use: Denies Use Recreational Drug Use: No Smoking Status: Former Smoker Type Used: Cigarettes Former Smoker, Quit: Mar 08, 2006 Recent Foreign Travel: No Contact w/Someone Who Travel: No Recent Infectious Disease Expo: No Recent Hopitalizations: No Immunizations Up To Date Tetanus Booster (TDap): Less than 5yrs PED Vaccines UTD: Yes Date of Pneumonia Vaccine: Jan 27, 2007 Date of Influenza Vaccine: Mar 01, 2017 Seasonal Allergies Seasonal Allergies: No Past Medical History Surgeries: Yes Appendectomy, Orthopedic Respiratory: Yes Asthma, Pneumonia, COPD Currently Using CPAP: No Currently Using BIPAP: No Cardiac: No Neurological: No Reproductive Disorders: No Genitourinary: No Gastrointestinal: No Diverticulosis Musculoskeletal: No Osteoporosis Endocrine: Yes Hypothyroidsim HEENT: No Loss of Vision: Denies Hearing Impairment: Denies Cancer: No Psychosocial: No Integumentary: No Blood Disorders: No Adverse Reaction/Blood Tranf: Yes Family Medical History Colquitt's disease Cardiovascular disease 19 MOTHER Myocardial infarction 19 MOTHER Stroke or transient ischemic attack in mother Hypertension Physical Exam Vital Signs Vital Signs - First Documented 08/10/17 21:46 Temp 98.5 Pulse 71 Resp 20 B/P (MAP) 126/74 (91) Pulse Ox 95 O2 Delivery Room Air Capillary Refill : Less Than 3 Seconds Focused Exam Lactate Level 08/10/17 22:00: Lactic Acid Level 0.92 Lactic Acid Level Laboratory Tests Test 08/10/17 22:00 Lactic Acid Level 0.92 MMOL/L (0.50-2.00) Progress/Results/Core Measures Suspected Sepsis Recent Fever Within 48 Hours: No Infection Criteria Present: None New/Unexplained Altered Menta: No Sepsis Screen: No Definite Risk Sepsis Diagnosis: SIRS Temperature:98.5 Pulse: 71 Respiratory Rate: 20 Laboratory Tests 08/10/17 22:00: White Blood Count 10.5 Blood Pressure 126 /74 Mean: 91 08/10/17 22:00: Lactic Acid Level 0.92 Laboratory Tests 08/10/17 22:00: Creatinine 0.78, INR Comment 1.0, Platelet Count 293, Total Bilirubin 0.5 Results/Orders Lab Results Laboratory Tests Test 08/10/17 22:00 Range/Units White Blood Count 10.5 4.3-11.0 10^3/uL Red Blood Count 4.58 4.35-5.85 10^6/uL Hemoglobin 14.5 # 11.5-16.0 G/DL Hematocrit 42 35-52 % Mean Corpuscular Volume 93 80-99 FL Mean Corpuscular Hemoglobin 32 25-34 PG Mean Corpuscular Hemoglobin Concent 34 32-36 G/DL Red Cell Distribution Width 13.2 10.0-14.5 % Platelet Count 293 130-400 10^3/uL Mean Platelet Volume 9.1 7.4-10.4 FL Neutrophils (%) (Auto) 62 42-75 % Lymphocytes (%) (Auto) 24 12-44 % Monocytes (%) (Auto) 11 0-12 % Eosinophils (%) (Auto) 3 0-10 % Basophils (%) (Auto) 0 0-10 % Neutrophils # (Auto) 6.5 1.8-7.8 X 10^3 Lymphocytes # (Auto) 2.5 1.0-4.0 X 10^3 Monocytes # (Auto) 1.1 H 0.0-1.0 X 10^3 Eosinophils # (Auto) 0.3 0.0-0.3 10^3/uL Basophils # (Auto) 0.0 0.0-0.1 10^3/uL Prothrombin Time 12.8 12.2-14.7 SEC INR Comment 1.0 0.8-1.4 Activated Partial Thromboplast Time 22 L 24-35 SEC Sodium Level 140 135-145 MMOL/L Potassium Level 4.2 3.6-5.0 MMOL/L Chloride Level 107 98-107 MMOL/L Carbon Dioxide Level 25 21-32 MMOL/L Anion Gap 8 5-14 MMOL/L Blood Urea Nitrogen 28 H 7-18 MG/DL Creatinine 0.78 0.60-1.30 MG/DL Estimat Glomerular Filtration Rate > 60 BUN/Creatinine Ratio 36 Glucose Level 100 70-105 MG/DL Lactic Acid Level 0.92 0.50-2.00 MMOL/L Calcium Level 8.2 L 8.5-10.1 MG/DL Magnesium Level 2.3 1.8-2.4 MG/DL Total Bilirubin 0.5 0.1-1.0 MG/DL Aspartate Amino Transf (AST/SGOT) 16 5-34 U/L Alanine Aminotransferase (ALT/SGPT) 21 0-55 U/L Alkaline Phosphatase 106 40-136 U/L Troponin I < 0.30 <0.30 NG/ML B-Type Natriuretic Peptide 46.7 <100.0 PG/ML Total Protein 6.3 L 6.4-8.2 GM/DL Albumin 4.0 3.2-4.5 GM/DL Micro Results Microbiology 08/10/17 Influenza Types A,B Antigen (DAVID) - Final, Complete My Orders Orders - EFRAÍN TRINIDAD DO Saline Lock/Iv-Start (08/10/17 21:52) Ekg Tracing (08/10/17 21:52) O2 (08/10/17 21:52) Monitor-Rhythm Ecg Trace Only (08/10/17 21:52) BNP (08/10/17 21:52) Cbc With Automated Diff (08/10/17 21:52) Comprehensive Metabolic Panel (08/10/17 21:52) Lactic Acid Analyzer (08/10/17 21:52) Magnesium (08/10/17 21:52) Protime With Inr (08/10/17:52) Partial Thromboplastin Time (08/10/17:52) Troponin I (08/10/17:52) Blood Culture (08/10/17:52) Influenza A And B Antigens (08/10/17 21:52) Chest 1 View, Ap/Pa Only (08/10/17 21:52) Albuterol/Ipra Inhalation Soln (Duoneb I (08/10/17 22:00) Dexamethasone Injection (Decadron Inject (08/10/17 22:00) Rt Request For Service (08/10/17 21:52) Methylprednisolone Sod Succ (Solu-Medrol (08/10/17 21:52) Svn Sm Volume Nebulizer Rt-Rfs (08/10/17 21:52) Ct Angio Chest W (08/10/17 23:03) Rocephin 1 Gm Iv (1 X Dose) (08/11/17 00:30) Medications Given in ED Current Medications Medications Dose Ordered Sig/Fady Route Start Time Stop Time Status Last Admin Dose Admin Albuterol/ Ipratropium 3 ml ONCE ONCE INH 08/10/17 22:00 08/10/17 22:01 DC 08/10/17 22:07 3 ML Dexamethasone Sodium Phosphate 20 mg ONCE ONCE IH 08/10/17 22:00 08/10/17 22:01 DC 08/10/17 22:07 20 MG Vital Signs/I&O 08/10/17 08/10/17 21:46 22:00 Temp 98.5 Pulse 71 Resp 20 B/P (MAP) 126/74 (91) Pulse Ox 95 97 O2 Delivery Room Air Room Air Capillary Refill : Less Than 3 Seconds Blood Pressure Mean: 91 Departure Impression Primary Impression: COPD with acute exacerbation Additional Impression: Bronchitis Disposition: HOME, SELF-CARE Condition: Improved Departure-Patient Inst. Referrals: ARMIDA DE SOUZA DO (PCP/Family) Primary Care Physician Patient Instructions: Acute Bronchitis, Adult (DC), COPD Including Emphysema ( DC) Add. Discharge Instructions: KEEP YOUR APPOINTMENT WITH DR. BOWMAN ON SATURDAY CONTINUE BUDESONIDE NEBULIZER TREATMENTS TWICE A DAY EVERY DAY DUO NEB NEBULIZER TREATMENTS EVERY 4 HOURS NEEDED FOR BREATHING---THIS REPLACES ALBUTEROL MUCINEX DM FOR COUGH AND CONGESTIONS TYLENOL NEEDED FOR PAIN OR FEVER RETURN TO ER IF WORSE All discharge instructions reviewed with patient and/or family. Voiced understanding. Scripts Prednisone (Prednisone) 5 Mg Tablet 5 MG PO UD, #78 TAB 12 PILLS DAY 1, THEN DECREASE BY 1 PILL A DAY UNTIL GONE Prov: EFRAÍN TRINIDAD DO 08/11/17 Azithromycin (Zithromax) 500 Mg Tablet 500 MG PO DAILY, #5 TAB FOR INFECTION Prov: EFRAÍN TRINIDAD DO 08/11/17 Cefdinir (Cefdinir) 300 Mg Capsule 300 MG PO BID for FOR INFECTION, #20 CAP Prov: EFRAÍN TRINIDAD DO 08/11/17 Ipratropium/Albuterol Sulfate (Iprat-Albut 0.5-3(2.5) mg/3 ml) 3 Ml Ampul.neb 3 ML IH Q4H Y for SHORTNESS OF BREATH, #1 EACH Prov: EFRAÍN TRINIDAD DO 08/11/17 EFRAÍN TRINIDAD DO Aug 10, 2017 22:01
[2017-08-10 22:10] LABS: BASOPHILS % (AUTO) 0 % (0-10); EOSINOPHILS # (AUTO) 0.3 10^3/uL (0.0-0.3); EOSINOPHILS % (AUTO) 3 % (0-10); HEMATOCRIT 42 % (35-52); HEMOGLOBIN 14.5 G/DL (11.5-16.0); LYMPHOCYTES # (AUTO) 2.5 X 10^3 (1.0-4.0); LYMPHOCYTES % (AUTO) 24 % (12-44); MEAN CORPUSCULAR HEMOGLOBIN 32 PG (25-34); MEAN CORPUSCULAR HGB CONC 34 G/DL (32-36); MEAN CORPUSCULAR VOLUME 93 FL (80-99); MEAN PLATELET VOLUME 9.1 FL (7.4-10.4); MONOCYTES # (AUTO) 1.1 X 10^3 (0.0-1.0); MONOCYTES % (AUTO) 11 % (0-12); NEUTROPHILS # (AUTO) 6.5 X 10^3 (1.8-7.8); NEUTROPHILS % (AUTO) 62 % (42-75); PLATELET COUNT 293 10^3/uL (130-400); RED BLOOD COUNT 4.58 10^6/uL (4.35-5.85); RED CELL DISTRIBUTION WIDTH 13.2 % (10.0-14.5); WHITE BLOOD COUNT 10.5 10^3/uL (4.3-11.0)
[2017-08-10 22:21] LABS: PROTHROMBIN TIME PATIENT 12.8 SEC (12.2-14.7)
[2017-08-10 22:34] LABS: ALANINE AMINOTRANSFERASE 21 U/L (0-55); ALKALINE PHOSPHATASE 106 U/L (40-136); BILIRUBIN,TOTAL 0.5 MG/DL (0.1-1.0); BUN/CREATININE RATIO 36; CALCIUM 8.2 MG/DL (8.5-10.1); CARBON DIOXIDE 25 MMOL/L (21-32); CHLORIDE 107 MMOL/L (98-107); CREATININE SERUM 0.78 MG/DL (0.60-1.30); GFR ESTIMATED > 60; GLUCOSE 100 MG/DL (70-105); MAGNESIUM 2.3 MG/DL (1.8-2.4); POTASSIUM 4.2 MMOL/L (3.6-5.0); SODIUM 140 MMOL/L (135-145); TOTAL PROTEIN 6.3 GM/DL (6.4-8.2)
[2017-08-11] MEDS ORDERED: AZITHROMYCIN 250 MG TAB (ZITHROMAX) PO ONE (00:28)
[2017-08-11] MEDS ORDERED: cefTRIAXone INJECTION 1,000 MG in NS (IVPB) 100 ML IV ONE (00:30)
[2017-08-11] MEDS ORDERED: PRED5TAB PO (00:31)
[2017-08-11] MEDS ORDERED: CEFD300C3 PO (00:31)
[2017-08-11] MEDS ORDERED: AZIT500T PO (00:31)
[2017-08-11] MEDS ORDERED: IPRA3AMP IH (00:31)
[2017-08-11 00:37] VITALS: BP 128/68
--- NOTE | 2017-08-11 07:29 | Diagnostic Imaging Report ---
PATIENT HISTORY: Shortness of air. TECHNIQUE: Single frontal view of the chest COMPARISON: 08/02/2017 FINDINGS: Lung volumes are normal. No focal consolidation is seen. There is no pleural effusion or pneumothorax. The cardiac silhouette is upper normal in size, but stable since the prior study. There is mild curvature of the spine, with degenerative changes in the spine and shoulders. IMPRESSION: No acute pulmonary abnormality. Dictated by: Dictated on workstation # [id number]
--- NOTE | 2017-08-11 07:38 | Diagnostic Imaging Report ---
PROCEDURE: CT angiography of the chest with contrast. TECHNIQUE: Multiple contiguous axial images were obtained through the chest after uneventful bolus administration of intravenous contrast. Reconstructed CTA MIP acquisitions were also performed. INDICATION: Shortness of air COMPARISON: 08/08/2010 FINDINGS: The pulmonary arteries are diagnostic to the segmental level. No filling defects are seen to suggest pulmonary embolus. The aorta demonstrates atherosclerosis without focal aneurysm or dissection. The heart is upper normal in size. No pericardial effusion is seen. No mediastinal adenopathy is seen. There is a very large, heterogeneous, nodular thyroid, right greater than left. There is mild bronchial wall thickening. Mild groundglass opacity is seen in the right lung base. No central endobronchial lesions are seen. No pleural effusion or pneumothorax is present. Mild atelectasis is seen in the left lung base. There is a partially calcified low-density lesion in the liver, which appears stable since 2011. There are numerous well-circumscribed low-density lesions throughout the liver which are consistent with cyst, and appear similar to 2011 as well. The largest measures up to 3.4 cm in size, located in the segment 5. No acute abnormalities are seen in the imaged portions of the upper abdomen. Degenerative changes are seen throughout the spine, with multilevel facet arthropathy. There is diffuse osteopenia. Advanced degenerative changes are seen in the shoulders bilaterally. IMPRESSION: 1. No acute pulmonary embolus. 2. Mild bronchial wall thickening, may represent bronchitis. There is also mild nonspecific groundglass opacity in the right lung base, may be infectious/inflammatory or due to atelectasis. 3. Markedly enlarged multinodular thyroid gland. Consider nonemergent followup with ultrasound. Dictated by: Dictated on workstation # [id number]
[2017-08-11] MEDS ORDERED: AZITHROMYCIN 250 MG TAB (ZITHROMAX) PO SCH (09:00)
== END 2017-08-11 00:48 | disposition home or self-care (01) ==
LOC: EDUNIT# 20:33 → ER 20:34
DX: J44.1 Chronic obstructive pulmonary disease with (acute) exacerbation (principal); J40 Bronchitis, not specified as acute or chronic; E03.9 Hypothyroidism, unspecified; M81.0 Age-related osteoporosis without current pathological fracture; Z87.19 Personal history of other diseases of the digestive system; Z87.01 Personal history of pneumonia (recurrent); Z90.49 Acquired absence of other specified parts of digestive tract; Z98.890 Other specified postprocedural states; Z87.891 Personal history of nicotine dependence; Z79.52 Long term (current) use of systemic steroids; Z88.1 Allergy status to other antibiotic agents; Z88.5 Allergy status to narcotic agent; Z82.49 Family history of ischemic heart disease and other diseases of the circulatory system
CPT/HCPCS: 36415; 71045; 71275; 80053; 83605; 83735; 83880; 84484; 85025; 85610; 85730; 87040; 87804; 93005; 93041; 96374; 96375

== ENCOUNTER → 2018-06-11 | Outpatient (CLI) | payer MEDICARE, OTHER ==
[~2018-06-11] MED LIST changes: +AZIT500T PO; +CEFD300C3 PO; +IPRA3AMP31 IH; +PRED5TAB PO
== END ==
LOC: WOUNDCARE 09:26
PROVIDERS: ATTEND Surgery
DX: I70.232 Atherosclerosis of native arteries of right leg with ulceration of calf (principal); I87.331 Chronic venous hypertension (idiopathic) with ulcer and inflammation of right lower extremity; L97.212 Non-pressure chronic ulcer of right calf with fat layer exposed; J44.9 Chronic obstructive pulmonary disease, unspecified
CPT/HCPCS: 11042

== ENCOUNTER → 2018-06-18 | Outpatient (CLI) | payer MEDICARE, OTHER | LOC: WOUNDCARE 09:43 | PROVIDERS: ATTEND Surgery | DX: I70.232 Atherosclerosis of native arteries of right leg with ulceration of calf (principal); I87.331 Chronic venous hypertension (idiopathic) with ulcer and inflammation of right lower extremity; L97.212 Non-pressure chronic ulcer of right calf with fat layer exposed; J44.9 Chronic obstructive pulmonary disease, unspecified | CPT/HCPCS: 11042; 87070; 87205 ==

== ENCOUNTER → 2018-06-25 | Outpatient (CLI) | payer MEDICARE, OTHER | LOC: WOUNDCARE 10:52 | PROVIDERS: ATTEND Surgery | DX: I70.232 Atherosclerosis of native arteries of right leg with ulceration of calf (principal); I87.331 Chronic venous hypertension (idiopathic) with ulcer and inflammation of right lower extremity; L97.212 Non-pressure chronic ulcer of right calf with fat layer exposed; J44.9 Chronic obstructive pulmonary disease, unspecified | CPT/HCPCS: 11042 ==

== ENCOUNTER → 2018-07-02 | Outpatient (CLI) | payer MEDICARE, OTHER | LOC: WOUNDCARE 11:01 | PROVIDERS: ATTEND Surgery | DX: I70.232 Atherosclerosis of native arteries of right leg with ulceration of calf (principal); I87.331 Chronic venous hypertension (idiopathic) with ulcer and inflammation of right lower extremity; L97.212 Non-pressure chronic ulcer of right calf with fat layer exposed; J44.9 Chronic obstructive pulmonary disease, unspecified | CPT/HCPCS: 11042 ==

== ENCOUNTER → 2018-07-09 | Outpatient (CLI) | payer MEDICARE, OTHER | LOC: WOUNDCARE 10:55 | PROVIDERS: ATTEND Surgery | DX: I87.331 Chronic venous hypertension (idiopathic) with ulcer and inflammation of right lower extremity (principal); I70.232 Atherosclerosis of native arteries of right leg with ulceration of calf; L97.212 Non-pressure chronic ulcer of right calf with fat layer exposed; J44.9 Chronic obstructive pulmonary disease, unspecified | CPT/HCPCS: 11042 ==

== ENCOUNTER → 2018-12-11 | Outpatient (CLI) | payer MEDICARE, OTHER | LOC: WOUNDCARE 11:54 | PROVIDERS: ATTEND Surgery | DX: B35.8 Other dermatophytoses (principal); I87.323 Chronic venous hypertension (idiopathic) with inflammation of bilateral lower extremity; R21 Rash and other nonspecific skin eruption | CPT/HCPCS: 99213 ==

== ENCOUNTER → 2018-12-16 | Outpatient (CLI) | payer MEDICARE, OTHER | LOC: WOUNDCARE 14:02 | PROVIDERS: ATTEND Surgery | DX: B35.8 Other dermatophytoses (principal); I87.333 Chronic venous hypertension (idiopathic) with ulcer and inflammation of bilateral lower extremity; R21 Rash and other nonspecific skin eruption | CPT/HCPCS: 99212 ==

== ENCOUNTER → 2019-11-10 | Outpatient (CLI) | payer MEDICARE, OTHER ==
[~2019-11-10] MED LIST changes: -MONT10TA24 PO; +MONT10TA26 PO
== END ==
LOC: WOUNDCARE 12:38
PROVIDERS: ATTEND Surgery
DX: I96 Gangrene, not elsewhere classified (principal); I87.331 Chronic venous hypertension (idiopathic) with ulcer and inflammation of right lower extremity; L97.212 Non-pressure chronic ulcer of right calf with fat layer exposed; J44.9 Chronic obstructive pulmonary disease, unspecified
CPT/HCPCS: A6260; G0463; 99212

== ENCOUNTER 2021-01-07 22:15 | Emergency (ER) | payer MEDICARE ==
[~2021-01-07] VITALS: Ht 165.1 cm; Wt 63.7 kg
[~2021-01-07 22:15] MED LIST changes: -MONT10TA26 PO; +MONT10TA32 PO
[2021-01-07] MEDS ORDERED: RX-MUPIROCIN (BACTROBAN) 2% OINT 22 GM TUBE TOP STA (22:31)
--- NOTE | 2021-01-07 22:34 | ED Integumentary General ---
General Chief Complaint: Skin/Wound Problems Stated Complaint: SKIN TEAR R ARM Nursing Triage Note: Pt ambulatory into ER with complaint of skin tear x3 days. PT states that she opened a door and hit her wrist causing a small tear. This happened 3 days ago and is most of the way healed. Pt states that she came in to make sure it would be ok for the trip she is taking tomorrow to [place]. Pt denies pain. Source: patient Exam Limitations: no limitations History of Present Illness Date Seen by Provider: Jan 07, 2021 Time Seen by Provider: 22:25 Initial Comments Here with skin tear to the right distal forearm on the dorsum. Does have some surrounding erythema. This occurred a couple days ago. She is leaving for a trip tomorrow morning and will be gone on the tour for the next 6 days. She was concerned about the wound and infection. She does have some mild erythema around the wound. She is up-to-date on tetanus. Denies foul-smelling drainage or fever. Timing/Duration: other (3 days ago) Severity: mild Location: extremities (Right upper) Possible Cause: other (Abrasion) Associated Symptoms: No fever Allergies and Home Medications Allergies Coded Allergies: morphine (Verified Allergy, Severe, 09/30/15) DIFFICULTY BREATHING levofloxacin (Verified Allergy, Unknown, joint pain, 03/08/17) Patient Home Medication List Home Medication List Reviewed: Yes Albuterol Sulfate (Proair Hfa) 1 Puff Puff, 2 PUFF IH Q4H Prescribed by: FE RIVER on 08/05/17 1012 Amoxicillin (Amoxicillin) 500 Mg Tablet, 500 MG PO BID Prescribed by: FE RIVER on 08/05/17 1012 Azithromycin (Zithromax) 500 Mg Tablet, 500 MG PO DAILY Prescribed by: EFRAÍN TRINIDAD on 08/11/17 0031 Biotin (Biotin) 1,000 Mcg Tablet, 1,000 MCG PO DAILY, (Reported) Entered as Reported by: OLIVIA GIVENS on 08/02/17 0920 Budesonide (Budesonide) 0.5 Mg/2 Ml Ampul.neb, 0.5 MG INH RTBID Prescribed by: FE RIVER on 08/05/17 1035 Cefdinir (Cefdinir) 300 Mg Capsule, 300 MG PO BID Prescribed by: EFRAÍN TRINIDAD on 08/11/1730 Ipratropium/Albuterol Sulfate (Iprat-Albut 0.5-3(2.5) mg/3 ml) 3 Ml Ampul.neb, 3 ML IH Q4H PRN for SHORTNESS OF BREATH Prescribed by: EFRAÍN TRINIDAD on 08/11/1730 Levothyroxine Sodium (Levothyroxine Sodium) 50 Mcg Tablet, 50 MCG PO DAILY, (Reported) Entered as Reported by: OLIVIA GIVENS on 01/28/15927 Loratadine (Loratadine) 10 Mg Tablet, 10 MG PO DAILY Prescribed by: FE RIVER on 08/05/17 101 Meloxicam (Meloxicam) 15 Mg Tablet, 15 MG PO DAILY, (Reported) Entered as Reported by: OLIVIA GIVENS on 01/28/15927 Montelukast Sodium (Montelukast Sodium) 10 Mg Tablet, 10 MG PO HS Prescribed by: FE RIVER on 08/05/171011 Prednisone (Prednisone) 10 Mg Tab, 60 MG PO DAILY Prescribed by: FE RIVER on 08/05/17 101 Prednisone (Prednisone) 5 Mg Tablet, 5 MG PO UD Prescribed by: EFRAÍN TRINIDAD on 08/11/1730 Review of Systems Review of Systems Constitutional: see HPI; No chills, No fever Respiratory: no symptoms reported Cardiovascular: no symptoms reported Skin: see HPI, change in color, lesions Past Tvymjvy-Sfibkb-Cxkmrj Hx Patient Social History Tobacco Use?: No Use of E-Cig and/or Vaping dev: No Substance use?: No Alcohol Use?: No Pt feels they are or have been: No Immunizations Up To Date Tetanus Booster (TDap): Less than 5yrs PED Vaccines UTD: Yes Influenza Vaccine Up-to-Date: No; Not Current Second COVID19 Vaccination Chilo: 05/26 COVID19 Vaccine Traffic Circuit Engineer: Rena Seasonal Allergies Seasonal Allergies: No Past Medical History Surgeries: Yes Appendectomy, Orthopedic Respiratory: Yes Asthma, Pneumonia, COPD Currently Using CPAP: No Currently Using BIPAP: No Cardiac: No Neurological: No Reproductive Disorders: No Genitourinary: No Gastrointestinal: No Diverticulosis Musculoskeletal: No Osteoporosis Endocrine: Yes Hypothyroidsim HEENT: No Loss of Vision: Denies Hearing Impairment: Denies Cancer: No Psychosocial: No Integumentary: No Blood Disorders: No Adverse Reaction/Blood Tranf: Yes Family Medical History Reviewed Nursing Family Hx Jhonathan's disease Cardiovascular disease 19 MOTHER Myocardial infarction 19 MOTHER Stroke or transient ischemic attack in mother Hypertension Physical Exam Vital Signs Vital Signs - First Documented 01/07/21 22:26 Temp 36.4 Pulse 71 Resp 18 B/P (MAP) 141/66 (91) Pulse Ox 96 Capillary Refill : Less Than 3 Seconds General Appearance: WD/WN, no apparent distress Cardiovascular: regular rate, rhythm, no murmur Respiratory: lungs clear, normal breath sounds Skin: warm/dry, other (3 cm skin tear horizontal across dorsum of the right distal forearm proximal to the wrist. Does have 2 to 3 cm of surrounding erythema. No foul-smelling drainage. No red streaks up the arm.) Progress/Results/Core Measures Results/Orders My Orders Orders - LISA RIVERS MD Rx-Mupirocin 2% Oint (Rx-Bactroban) (01/07/21 22:31) Vital Signs/I&O 01/07/21 22:26 Temp 36.4 Pulse 71 Resp 18 B/P (MAP) 141/66 (91) Pulse Ox 96 Blood Pressure Mean: 91 Progress Progress Note : Progress Note Seen and evaluated. Mupirocin ointment to wound. Patient is leaving in the morning before pharmacies open. We did consider oral antibiotics although I think the topical antibiotic will work quite well. This was discussed with the patient. Discharged home with return precautions. Patient verbalized understanding of instructions and agreement with plan. Departure Impression Primary Impression: Skin tear Additional Impression: Cellulitis Qualified Codes: L03.113 - Cellulitis of right upper limb Disposition: HOME, SELF-CARE Condition: Improved Departure-Patient Inst. Decision time for Depature: 22:33 Referrals: ARMIDA DE SOUZA DO (PCP/Family) Primary Care Physician Patient Instructions: Skin Abrasions (DC), Cellulitis (Skin Infection), Adult (DC) Add. Discharge Instructions: All discharge instructions reviewed with patient and/or family. Voiced understanding. Use antibiotic ointment over wound and cover with Band-Aid. Do this twice daily. It is okay to gently wash wound twice daily. It is okay to shower but do not soak wound in any body of water. Use antibiotic ointment and Band-Aid for the next 5 days or so and then you may use dry Band-Aid thereafter. Return for worse pain, foul-smelling drainage, red streaks up the arm, fever or other concerns as needed. LISA RIVERS MD Jan 07, 2021 22:34
[2021-01-07 22:41] VITALS: BP 141/66
== END 2021-01-07 22:42 | disposition home or self-care (01) ==
LOC: EDUNIT# 22:15 → ER 22:17
DX: S51.811A Laceration without foreign body of right forearm, initial encounter (principal); L03.113 Cellulitis of right upper limb; J44.9 Chronic obstructive pulmonary disease, unspecified; E03.9 Hypothyroidism, unspecified; Z79.890 Hormone replacement therapy; Z79.52 Long term (current) use of systemic steroids; Z79.899 Other long term (current) drug therapy; X58.XXXA Exposure to other specified factors, initial encounter
CPT/HCPCS: 99281

== ENCOUNTER 2021-11-25 10:58 | Emergency (ER) | payer MEDICARE ==
[~2021-11-25] VITALS: Ht 162 cm; Wt 68.0 kg
[~2021-11-25 10:58] MED LIST changes: +MONT-40 PO; -MONT10TA32 PO
--- NOTE | 2021-11-25 11:29 | ED Cough/URI ---
General Chief Complaint: Cough/Cold/Flu Symptoms Stated Complaint: SOB Source: patient Exam Limitations: no limitations (BRYAN MEDINA) History of Present Illness Date Seen by Provider: Nov 25, 2021 Time Seen by Provider: 11:26 Initial Comments Patient is a 81-year-old female with a history of COPD who presents the ED with flulike symptoms and cough. Symptoms started last Saturday. She tested positive for COVID at [place]. She states she had bodyaches fatigue and weakness but that improved. Start developing cough 2 days ago with clear sputum production. She reports shortness of breath with walking. Denies history of coronary artery disease, CHF. Not currently on anticoagulant. Denies any nausea, vomiting, diarrhea. Patient did not receive monoclonal antibody infusion or paxlovid. She meets criteria for monoclonal antibody infusion she refused. She is concerned that she may be developing pneumonia. Due to her current complaints recommend lab work cardiac work-up due to the shortness of breath. She denies of any chest pain, Gregorio pain, headache, visual changes or fever. History of previous smoker. Was seen at [facility] yesterday given cough medication but has not taken. (BRYAN MEDINA) Allergies and Home Medications Allergies Coded Allergies: morphine (Verified Allergy, Severe, 09/30/15) DIFFICULTY BREATHING levofloxacin (Verified Allergy, Unknown, joint pain, 03/08/17) Patient Home Medication List Home Medication List Reviewed: Yes (BRYAN MEDINA) Albuterol Sulfate (Proair Hfa) 1 Puff Puff, 2 PUFF IH Q4H Prescribed by: FE RIVER on 08/05/17 1012 Amoxicillin (Amoxicillin) 500 Mg Tablet, 500 MG PO BID Prescribed by: FE RIVER on 08/05/17 1012 Azithromycin (Zithromax) 500 Mg Tablet, 500 MG PO DAILY Prescribed by: EFRAÍN TRINIDAD on 08/11/17 0031 Azithromycin (Azithromycin) 250 Mg Tablet, 250 MG PO UD Prescribed by: ROSA FERNANDEZ on 11/25/21 1216 Biotin (Biotin) 1,000 Mcg Tablet, 1,000 MCG PO DAILY, (Reported) Entered as Reported by: OLIVIA GIVENS on 08/02/17 0920 Budesonide (Budesonide) 0.5 Mg/2 Ml Ampul.neb, 0.5 MG INH RTBID Prescribed by: FE RIVER on 08/05/17 1035 Cefdinir (Cefdinir) 300 Mg Capsule, 300 MG PO BID Prescribed by: EFRAÍN TRINIDAD on 08/11/1730 Ipratropium/Albuterol Sulfate (Iprat-Albut 0.5-3(2.5) mg/3 ml) 3 Ml Ampul.neb, 3 ML IH Q4H PRN for SHORTNESS OF BREATH Prescribed by: EFRAÍN TRINIDAD on 08/11/1730 Levothyroxine Sodium (Levothyroxine Sodium) 50 Mcg Tablet, 50 MCG PO DAILY, (Reported) Entered as Reported by: OLIVIA GIVENS on 01/28/15927 Loratadine (Loratadine) 10 Mg Tablet, 10 MG PO DAILY Prescribed by: FE RIVER on 08/05/17 101 Meloxicam (Meloxicam) 15 Mg Tablet, 15 MG PO DAILY, (Reported) Entered as Reported by: OLIVIA GIVENS on 01/28/15927 Montelukast Sodium (Montelukast Sodium) 10 Mg Tablet, 10 MG PO HS Prescribed by: FE RIVER on 08/05/17 101 Prednisone (Prednisone) 10 Mg Tab, 60 MG PO DAILY Prescribed by: FE RIVER on 08/05/17 101 Prednisone (Prednisone) 5 Mg Tablet, 5 MG PO UD Prescribed by: EFRAÍN TRINIDAD on 08/11/1730 Prednisone (Prednisone) 20 Mg Tab, 40 MG PO DAILY Prescribed by: ROSA FERNANDEZ on 11/25/21 1216 Review of Systems Review of Systems Constitutional: chills; No diaphoresis; malaise, weakness EENTM: No ear pain, No blurred vision, No double vision Respiratory: cough, short of breath Cardiovascular: No chest pain Gastrointestinal: No abdominal pain, No diarrhea, No nausea, No vomiting Genitourinary: No decreased output Musculoskeletal: No back pain, No joint pain Skin: No change in color, No change in hair/nails (BRYAN MEDINA) All Other Systems Reviewed Negative Unless Noted: Yes (BRYAN MEDINA) Past Sylneir-Bfylou-Gwhywe Hx Patient Social History Tobacco Use?: No Smoking Status: Former Smoker Substance use?: No Alcohol Use?: No Pt feels they are or have been: No (BRYAN MEDINA) Immunizations Up To Date Tetanus Booster (TDap): Less than 5yrs PED Vaccines UTD: Yes Influenza Vaccine Up-to-Date: No; Not Current First/Initial COVID19 Vaccinat: 05/26 Second COVID19 Vaccination Chilo: 06/26 Third COVID19 Vaccination Date: 2021 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 (BRYAN MEDINA) Seasonal Allergies Seasonal Allergies: No (BRYAN MEDINA) Past Medical History Surgery/Hospitalization HX: COPD, THYROID KNEE BILAT, APPY Surgeries: Yes Appendectomy, Orthopedic Respiratory: Yes Asthma, Pneumonia, COPD Currently Using CPAP: No Currently Using BIPAP: No Cardiac: No Neurological: No Reproductive Disorders: No Genitourinary: No Gastrointestinal: No Diverticulosis Musculoskeletal: No Osteoporosis Endocrine: Yes Hypothyroidsim HEENT: No Loss of Vision: Denies Hearing Impairment: Denies Cancer: No Psychosocial: No Integumentary: No Blood Disorders: No Adverse Reaction/Blood Tranf: Yes (BRYAN MEDINA) Family Medical History Jhonathan's disease Cardiovascular disease 19 MOTHER Myocardial infarction 19 MOTHER Stroke or transient ischemic attack in mother Hypertension (BRYAN MEDINA) Physical Exam Vital Signs - First Documented 11/25/21 11:13 Temp 36.8 Pulse 70 Resp 16 B/P (MAP) 151/83 (105) (HAYDE BRADY MD) Capillary Refill : (BRYAN MEDINA) Height: 5'3.00" Weight: 156lbs. 1.0oz. 70.934297tz; 23.00 BMI Method:Stated General Appearance: WD/WN, no apparent distress Eyes: Bilateral Eye Normal Inspection, Bilateral Eye PERRL, Bilateral Eye EOMI HEENT: PERRL/EOMI, normal ENT inspection, TMs normal, pharynx normal Neck: non-tender, full range of motion, supple Respiratory: chest non-tender, normal breath sounds, no respiratory distress, no accessory muscle use, rhonchi Cardiovascular: regular rate, rhythm, no edema, no gallop Gastrointestinal: normal bowel sounds, non tender, soft, no organomegaly Extremities: normal range of motion, non-tender, normal inspection, no pedal edema Neurologic/Psychiatric: plate preparer II-XII nml as tested, no motor/sensory deficits, alert, normal mood/affect Skin: normal color, warm/dry (BRYAN MEDINA) Progress/Results/Core Measures Suspected Sepsis SIRS Temperature: Pulse: Respiratory Rate: Laboratory Tests 11/25/21 11:38: White Blood Count 3.5L Blood Pressure / Mean: Laboratory Tests 11/25/21 11:38: Creatinine 0.75, Platelet Count 199, Total Bilirubin 0.7 (BRYAN MEDINA) Results/Orders Lab Results Laboratory Tests Test 11/25/21 11:38 Range/Units White Blood Count 3.5 L 4.3-11.0 10^3/uL Red Blood Count 4.41 3.80-5.11 10^6/uL Hemoglobin 13.8 11.5-16.0 g/dL Hematocrit 41 35-52 % Mean Corpuscular Volume 94 80-99 fL Mean Corpuscular Hemoglobin 31 25-34 pg Mean Corpuscular Hemoglobin Concent 33 32-36 g/dL Red Cell Distribution Width 12.4 10.0-14.5 % Platelet Count 199 130-400 10^3/uL Mean Platelet Volume 10.2 9.0-12.2 fL Immature Granulocyte % (Auto) 0 % Neutrophils (%) (Auto) 53 42-75 % Lymphocytes (%) (Auto) 30 12-44 % Monocytes (%) (Auto) 10 0-12 % Eosinophils (%) (Auto) 5 0-10 % Basophils (%) (Auto) 1 0-10 % Neutrophils # (Auto) 1.8 1.8-7.8 10^3/uL Lymphocytes # (Auto) 1.1 1.0-4.0 10^3/uL Monocytes # (Auto) 0.4 0.0-1.0 10^3/uL Eosinophils # (Auto) 0.2 0.0-0.3 10^3/uL Basophils # (Auto) 0.0 0.0-0.1 10^3/uL Immature Granulocyte # (Auto) 0.0 0.0-0.1 10^3/uL Sodium Level 142 135-145 MMOL/L Potassium Level 3.9 3.6-5.0 MMOL/L Chloride Level 109 H 98-107 MMOL/L Carbon Dioxide Level 22 21-32 MMOL/L Anion Gap 11 5-14 MMOL/L Blood Urea Nitrogen 13 7-18 MG/DL Creatinine 0.75 0.60-1.30 MG/DL Estimat Glomerular Filtration Rate 80 BUN/Creatinine Ratio 17 Glucose Level 98 70-105 MG/DL Calcium Level 8.9 8.5-10.1 MG/DL Corrected Calcium 8.9 8.5-10.1 MG/DL Magnesium Level 1.9 1.6-2.4 MG/DL Total Bilirubin 0.7 0.1-1.0 MG/DL Aspartate Amino Transf (AST/SGOT) 19 5-34 U/L Alanine Aminotransferase (ALT/SGPT) 12 0-55 U/L Alkaline Phosphatase 123 40-136 U/L Troponin I < 0.028 <0.028 NG/ML B-Type Natriuretic Peptide 108.1 H <100.0 PG/ML Total Protein 6.4 6.4-8.2 GM/DL Albumin 4.0 3.2-4.5 GM/DL (HAYDE BRADY MD) Vital Signs/I&O 11/25/21 11/25/21 11:13 12:22 Temp 36.8 36.8 Pulse 70 69 Resp 16 16 B/P (MAP) 151/83 (105) 147/81 (HAYDE BRADY MD) Vital Signs/I&O Capillary Refill : (BRYAN MEDINA) ECG Comment Sinus rhythm, low QRS voltage in precordial leads, possible anterior myocardial infarction probable old, 62 bpm, QRS duration 82 MS, QTc 413 MS (BRYAN MEDINA) Departure Communication (PCP) Patient is out of timeframe for paxlovid. She refused monoclonal antibody. Diagnosed with COVID 1 week ago. Started developing cough with some shortness of breath over the past 2 days. Denies of any chest pain, abdominal pain, vomiting,fever chills body aches currently. Patient vital signs stable. Denies history of coronary artery disease, CHF. Not currently on anticoagulant. Subtle Rhonchi/ wheezing noted on exam of the lungs. Chest x-ray was negative for pneumonia. EKG showed sinus rhythm without evidence of ST elevation or depression. Cardiac work-up unremarkable. Lab work was otherwise reassuring and unremarkable. She was not hypoxic or tachycardic. No current chest pain. Patient states she has a history of COPD. Due to her current presentation and exam patient was given a dose of Solu-Medrol and albuterol inhaler with improvement. Symptoms may be exacerbated by her COPD. Likely secondary to COVID however due to her underlying COPD and current symptoms patient will be discharged with short burst steroids and azithromycin for any atypical type infections. Recommend follow-up with PCP in 2 to 3 days for reevaluation. If a ny worsening symptoms return back to ED for further evaluation. Discussed monitoring pulse ox. Discussed with patient she has up to 3 more days to receive the monoclonal antibody infusion if agreeable. She refused infusion today. Patient was anxiously wanting to leave. She states typically dose of antibiotics improve these symptoms. (BRYAN MEDINA) Impression Primary Impression: COVID-19 Additional Impression: Bronchitis Disposition: 01 HOME, SELF-CARE Condition: Stable Departure-Patient Inst. Decision time for Depature: 12:16 (BRYAN MEDINA) Referrals: ARMIDA DE SOUZA DO (PCP/Family) Primary Care Physician Patient Instructions: COVID-19 ED Scripts Azithromycin (Azithromycin) 250 Mg Tablet 250 MG PO UD, #6 TAB TAKE 2 TABLETS ON DAY ONE THEN TAKE 1 TABLET DAILY FOR FOUR MORE DAYS Prov: BRYAN MEDINA 11/25/21 Prednisone (Prednisone) 20 Mg Tab 40 MG PO DAILY for 4 Days, #8 TAB Prov: BRYAN MEDINA 11/25/21 ATTENDING PHYSICIAN NOTE: I was physically present as attending physician in the emergency department during the care of this patient, but I was not directly involved in the decision making or delivery of care for this patient. (HAYDE BRADY MD) BRYAN MEDINA Nov 25, 2021 11:29 HAYDE BRADY MD Nov 26, 2021 16:32
[2021-11-25] MEDS ORDERED: RT-ALBUTEROL HFA 8.5 GM INHALER IH ONE (11:30)
[2021-11-25] MEDS ORDERED: methylPREDNISolone 125 MG (Solu-MEDROL) VIAL IM ONE (11:30)
[2021-11-25 11:46] LABS: BASOPHILS % (AUTO) 1 % (0-10); EOSINOPHILS # (AUTO) 0.2 10^3/uL (0.0-0.3); EOSINOPHILS % (AUTO) 5 % (0-10); HEMATOCRIT 41 % (35-52); HEMOGLOBIN 13.8 g/dL (11.5-16.0); LYMPHOCYTES # (AUTO) 1.1 10^3/uL (1.0-4.0); LYMPHOCYTES % (AUTO) 30 % (12-44); MEAN CORPUSCULAR HEMOGLOBIN 31 pg (25-34); MEAN CORPUSCULAR HGB CONC 33 g/dL (32-36); MEAN CORPUSCULAR VOLUME 94 fL (80-99); MEAN PLATELET VOLUME 10.2 fL (9.0-12.2); MONOCYTES # (AUTO) 0.4 10^3/uL (0.0-1.0); MONOCYTES % (AUTO) 10 % (0-12); NEUTROPHILS # (AUTO) 1.8 10^3/uL (1.8-7.8); NEUTROPHILS % (AUTO) 53 % (42-75); PLATELET COUNT 199 10^3/uL (130-400); WHITE BLOOD COUNT 3.5 10^3/uL (4.3-11.0)
[2021-11-25 11:59] LABS: CHLORIDE 109 MMOL/L (98-107); POTASSIUM 3.9 MMOL/L (3.6-5.0); SODIUM 142 MMOL/L (135-145)
[2021-11-25 12:00] LABS: CALCIUM 8.9 MG/DL (8.5-10.1)
[2021-11-25 12:01] LABS: GLUCOSE 98 MG/DL (70-105); TOTAL PROTEIN 6.4 GM/DL (6.4-8.2)
--- NOTE | 2021-11-25 12:01 | Diagnostic Imaging Report ---
EXAMINATION: Chest, 1 view. HISTORY: Cough. Covid positive. COMPARISON: 08/10/2017. FINDINGS: The lung volumes are normal. No focal consolidation is seen. No large pleural effusion or pneumothorax is seen. The cardiomediastinal silhouette is stable. No acute osseous abnormality is seen. IMPRESSION: No acute pleuroparenchymal process. Dictated by: Dictated on workstation # [id number]
[2021-11-25 12:02] LABS: CARBON DIOXIDE 22 MMOL/L (21-32)
[2021-11-25 12:03] LABS: BILIRUBIN,TOTAL 0.7 MG/DL (0.1-1.0)
[2021-11-25 12:04] LABS: ALKALINE PHOSPHATASE 123 U/L (40-136)
[2021-11-25 12:05] LABS: CREATININE SERUM 0.75 MG/DL (0.60-1.30); GFR ESTIMATED 80
[2021-11-25 12:06] LABS: BUN/CREATININE RATIO 17
[2021-11-25 12:07] LABS: ALANINE AMINOTRANSFERASE 12 U/L (0-55); MAGNESIUM 1.9 MG/DL (1.6-2.4)
[2021-11-25] MEDS ORDERED: AZIT250T12 PO (12:16)
[2021-11-25] MEDS ORDERED: PRD20T PO (12:16)
[2021-11-25 12:22] VITALS: BP 147/81
== END 2021-11-25 12:22 | disposition home or self-care (01) ==
LOC: EDUNIT# 10:58 → ER 11:00
DX: U07.1 COVID-19 (principal); J44.9 Chronic obstructive pulmonary disease, unspecified; Z87.891 Personal history of nicotine dependence; Z73.0 Burn-out
CPT/HCPCS: 36415; 71045; 80053; 83735; 83880; 84484; 85025; 93005

== ENCOUNTER 2022-04-20 14:15 | Emergency (ER) | payer MEDICARE ==
[~2022-04-20] VITALS: Ht 165.1 cm; Wt 65.8 kg
[~2022-04-20 14:15] MED LIST changes: +ALBU8.5H6 IH; +AZIT250T12 PO; -RT-ALBUINH IH
--- NOTE | 2022-04-20 15:20 | ED Cough/URI ---
General Chief Complaint: Cough/Cold/Flu Symptoms Stated Complaint: COUGH/SOA Nursing Triage Note: PT AMB TO TRIAGE W C/O COUGH AND RUNNY NOSE X2 DAYS, DENIES PAIN. PT A&OX4. Source: patient Exam Limitations: no limitations History of Present Illness Date Seen by Provider: Apr 20, 2022 Time Seen by Provider: 15:15 Initial Comments Patient is an 81-year-old female who presents to the emergency department for evaluation of cough and runny nose for 2 days. She denies any pain at this time. No recent fever. She has not been taking anything for the symptoms. Denies any known sick contacts. Allergies and Home Medications Allergies Coded Allergies: morphine (Verified Allergy, Severe, 09/30/15) DIFFICULTY BREATHING levofloxacin (Verified Allergy, Unknown, joint pain, 03/08/17) Patient Home Medication List Home Medication List Reviewed: Yes Albuterol Sulfate (Ventolin Hfa) 1 Puff Puff, 2 PUFF IH Q4H Prescribed by: EF RIVER on 08/05/17 1012 Amoxicillin (Amoxicillin) 500 Mg Tablet, 500 MG PO BID Prescribed by: FE RIVER on 08/05/17 1012 Azithromycin (Zithromax) 500 Mg Tablet, 500 MG PO DAILY Prescribed by: EFRAÍN TRINIDAD on 08/11/17 0031 Azithromycin (Azithromycin) 250 Mg Tablet, 250 MG PO UD Prescribed by: ROSA FERNANDEZ on 11/25/21 1216 Biotin (Biotin) 1,000 Mcg Tablet, 1,000 MCG PO DAILY, (Reported) Entered as Reported by: OLIVIA GIVENS on 08/02/17 0920 Budesonide (Budesonide) 0.5 Mg/2 Ml Ampul.neb, 0.5 MG INH RTBID Prescribed by: FE RIVER on 08/05/17 1035 Cefdinir (Cefdinir) 300 Mg Capsule, 300 MG PO BID Prescribed by: EFRAÍN TRINIDAD on 08/11/17 003 Ipratropium/Albuterol Sulfate (Iprat-Albut 0.5-3(2.5) mg/3 ml) 3 Ml Ampul.neb, 3 ML IH Q4H PRN for SHORTNESS OF BREATH Prescribed by: EFRAÍN TRINIDAD on 08/11/17 003 Levothyroxine Sodium (Levothyroxine Sodium) 50 Mcg Tablet, 50 MCG PO DAILY, (Reported) Entered as Reported by: OLIVIA GIVENS on 01/28/15927 Loratadine (Loratadine) 10 Mg Tablet, 10 MG PO DAILY Prescribed by: FE RIVER on 08/05/17 101 Meloxicam (Meloxicam) 15 Mg Tablet, 15 MG PO DAILY, (Reported) Entered as Reported by: OLIVIA GIVENS on 01/28/15927 Montelukast Sodium (Montelukast Sodium) 10 Mg Tablet, 10 MG PO HS Prescribed by: FE RIVER on 08/05/17 101 Prednisone (Prednisone) 10 Mg Tab, 60 MG PO DAILY Prescribed by: FE RIVER on 08/05/17 101 Prednisone (Prednisone) 5 Mg Tablet, 5 MG PO UD Prescribed by: EFRAÍN TRINIDAD on 08/11/17 0031 Prednisone (Prednisone) 20 Mg Tab, 40 MG PO DAILY Prescribed by: ROSA FERNANDEZ on 11/25/21 1216 Review of Systems Review of Systems Constitutional: no symptoms reported EENTM: see HPI, nose congestion Respiratory: see HPI, cough Cardiovascular: no symptoms reported Gastrointestinal: no symptoms reported Genitourinary: no symptoms reported Musculoskeletal: no symptoms reported Skin: no symptoms reported Psychiatric/Neurological: No Symptoms Reported Hematologic/Lymphatic: No Symptoms Reported Immunological/Allergic: no symptoms reported Past Jmcvmoh-Vmnapj-Qcilkj Hx Patient Social History Tobacco Use?: No Use of E-Cig and/or Vaping dev: No Substance use?: No Alcohol Use?: No Immunizations Up To Date Tetanus Booster (TDap): Less than 5yrs PED Vaccines UTD: Yes Influenza Vaccine Up-to-Date: Yes; Up-to-Date First/Initial COVID19 Vaccinat: 05/26 Second COVID19 Vaccination Chilo: 06/26 Third COVID19 Vaccination Date: [address] Service Locksmith: [employer] Seasonal Allergies Seasonal Allergies: No Past Medical History Surgery/Hospitalization HX: COPD, THYROID KNEE BILAT, APPY Surgeries: Yes Appendectomy, Orthopedic Respiratory: Yes Asthma, Pneumonia, COPD Currently Using CPAP: No Currently Using BIPAP: No Cardiac: No Neurological: No Reproductive Disorders: No Genitourinary: No Gastrointestinal: No Diverticulosis Musculoskeletal: No Osteoporosis Endocrine: Yes Hypothyroidsim HEENT: No Loss of Vision: Denies Hearing Impairment: Denies Cancer: No Psychosocial: No Integumentary: No Blood Disorders: No Adverse Reaction/Blood Tranf: Yes Family Medical History Jhonathan's disease Cardiovascular disease 19 MOTHER Myocardial infarction 19 MOTHER Stroke or transient ischemic attack in mother Hypertension Physical Exam Vital Signs - First Documented 04/20/22 14:20 Temp 36.4 Pulse 78 Resp 20 B/P (MAP) 136/81 (99) Pulse Ox 95 O2 Delivery Room Air Capillary Refill : Less Than 3 Seconds Height: 5'3.00" Weight: 156lbs. 1.0oz. 70.511352vq; 24.00 BMI Method:Stated General Appearance: WD/WN, no apparent distress HEENT: PERRL/EOMI, normal ENT inspection, TMs normal, pharynx normal Neck: non-tender, full range of motion, supple, normal inspection Respiratory: chest non-tender, lungs clear, normal breath sounds, no respiratory distress, no accessory muscle use Cardiovascular: regular rate, rhythm Gastrointestinal: normal bowel sounds, non tender, soft Neurologic/Psychiatric: no motor/sensory deficits, alert, normal mood/affect, oriented x 3 Skin: normal color, warm/dry Progress/Results/Core Measures Suspected Sepsis SIRS Temperature: Pulse: 78 Respiratory Rate: 20 Blood Pressure 136 /81 Mean: 99 Results/Orders Lab Results Laboratory Tests Test 04/20/22 14:26 Range/Units Influenza Type A (RT-PCR) Detected H Not Detecte Influenza Type B (RT-PCR) Not Detected Not Detecte SARS-CoV-2 RNA (RT-PCR) Not Detected Not Detecte My Orders Orders - TAVO MCKAY APRN Covid 19 Inhouse Test (04/20/22 15:16) Influenza A And B By Pcr (04/20/22 15:16) Isolation Central Supply Req (04/20/22 15:16) Chest 1 View, Ap/Pa Only (04/20/22 15:16) Vital Signs/I&O 04/20/22 04/20/22 04/20/22 14:20 15:15 16:49 Temp 36.4 36.6 Pulse 78 82 Resp 20 20 B/P (MAP) 136/81 (99) 128/79 Pulse Ox 95 96 O2 Delivery Room Air Room Air Room Air Capillary Refill : Less Than 3 Seconds Blood Pressure Mean: 99 Progress Note : Progress Note Patient is nontoxic and well-hydrated on exam. No adventitious lung sounds or increased work of breathing noted. Vital signs reassuring without hypoxia. Chest x-ray acutely negative. Viral testing obtained. Patient is positive for influenza A. Discussed supportive care and anticipatory guidance. Follow-up with PCP. Return precautions for urgent symptomology discussed. Patient verbalized understanding. Departure Impression Primary Impression: Influenza A Disposition: HOME, SELF-CARE Condition: Stable Departure-Patient Inst. Decision time for Depature: 16:40 Referrals: ARMIDA DE SOUZA DO (PCP/Family) Primary Care Physician Patient Instructions: Flu, Adult ED TAVO MCKAY APRN Apr 20, 2022 15:20
--- NOTE | 2022-04-20 15:45 | Diagnostic Imaging Report ---
INDICATION: Cough. TIME OF EXAM: 3:22 p.m. Correlation is made with prior chest 11/25/2021. FINDINGS: The heart size is normal. The pulmonary vascularity is unremarkable. The lungs are clear. No infiltrate, effusion or pneumothorax is detected. IMPRESSION: No acute cardiopulmonary process is detected. Dictated by: Dictated on workstation # [id number]
[2022-04-20 16:49] VITALS: BP 128/79
== END 2022-04-20 16:49 | disposition home or self-care (01) ==
LOC: EDUNIT# 14:15 → ER 14:16
DX: J10.1 Influenza due to other identified influenza virus with other respiratory manifestations (principal); Z20.822 Contact with and (suspected) exposure to COVID-19
CPT/HCPCS: 71045; 87636